=== PATIENT | male | born 1960 | race Caucasian/White ===

== ENCOUNTER 2019-11-28 08:41 | Inpatient (IN) | payer SELFPAY ==
[2019-11-28] VITALS (9 sets, daily range): BP systolic 160–182; BP diastolic 75–99; PULSE 55–82; RESP 16–20; TEMP 36.1–37.3; O2SAT 95–99; BMI 30.2
--- NOTE | ~2019-11-28 | CT_ITS ---
EXAMINATION: CT abdomen pelvis wo con EXAM DATE: 11/28/2019 10:41 INDICATION: Peripheral arterial disease. Skin cancer. Rectal mucous, difficulty urinating. TECHNIQUE: Spiral CT of the abdomen and pelvis was performed without contrast. Axial, coronal and s agittal images were reviewed. The dose-length product (DLP) for this examination was 533.32 mGy-cm. The exposure was tailored according to patient size (auto mA exposure control), and iterative recons truction (ASIR) was used as additional dose reduction technique. Comparison is made to prior examinat ion from 01/22/2007. FINDINGS: The liver, spleen, adrenal glands and pancreas are unremarkable. Gallbladder is unremarkab le. No biliary obstruction. There is no nephrolithiasis or hydronephrosis. There is mild bilateral hydroureteronephrosis. Mild left perinephric fat stranding. There is moderate prostatomegaly. There is a Martinez catheter in the bladder. The bladder is still severely dilated; is the Martinez catheter clam ped? There is no retroperitoneal or pelvic lymphadenopathy. There is mild scattered arteriosclerot ic disease. The appendix is normal. The stomach and small bowel are unremarkable. There is expected amount of c olonic stool. No free intraperitoneal gas. The heart is normal in size. There are no pericardial or pleural effusions. The lung bases are unremarkable. There are no osteoblastic or osteolytic les ions identified. IMPRESSION: 1. Moderate prostatomegaly. Martinez catheter in position (clamped?) with severely distended bladder an d mild bilateral hydroureteronephrosis. Mild left perinephric fat stranding. Correlate with urinalysi s. 2. Colonic tortuosity. Otherwise unremarkable bowel. Reviewed, dictated and finalized at location B. [employer] IMPRESSION: 1. Moderate prostatomegaly. Martinez catheter in position (clamped?) with severel y distended bladder and mild bilateral hydroureteronephrosis. Mild left perinep hric fat stranding. Correlate with urinalysis. 2. Colonic tortuosity. Otherwise unremarkable bowel.
--- NOTE | 2019-11-28 09:21 | ED.ABDPAIN ---
HPI - Abdominal Pain General Chief Complaint: Urogenital-Male <Shimon VillarrealFANNY Tanmay Last Filed: 11/28/19 11:24> Stated Complaint: Loss bladder/bowels <Shimon VillarrealFANNY Last Filed: 11/28/19 11:24> Time Seen by Provider: 11/28/19 08:56 <Shimon VillarrealFANNY Last Filed: 11/28/19 11:24> Source: patient <Shimon VillarrealFANNY Tanmay Last Filed: 11/28/19 11:24> Mode of arrival: ambulatory <Shimon VillarrealFANNY Last Filed: 11/28/19 11:24> Limitations: no limitations <Shimon Villarreal PA-C Tanmay Filed: 11/28/19 11:24> History of Present Illness HPI narrative: Patient is a 59-year-old male who presents to emergency department for evaluation of urinary urgency that is been present for the last 2 weeks went to an urgent care x2 was advised to follow-up with his primary care doctor was unable to get and the notes that he continues to have urinary urgency. Patient also notes over the last 4 days he has had some loose mucous stools. Patient denies any pain fever hematuria rectal bleeding or melena. Patient notes this morning he had emesis x1 and notes over the last couple of weeks is also had decreased appetite., Patient has not taken anything for his symptoms. Patient presents per private vehicle <Shimon Kojo FANNY Villarreal Tanmay Last Filed: 11/28/19 11:24> Related Data Allergies/Adverse Reactions: Allergies Allergy/AdvReac Type Severity Reaction Status Date / Time No Known Allergies Allergy Verified 11/28/19 10:10 <Shimon Villarreal PA-C Tanmay Last Filed: 11/28/19 11:24> Review of Systems Review of Systems: Narrative: CONSTITUTIONAL: Denies fever, chills, or sweats. EYES: Denies redness, or discharge. ENT: Denies rhinorrhea, congestion, sore throat, or otalgia. CARDIOVASCULAR: Denies chest pain, palpitations, or edema. RESPIRATORY: Denies cough or dyspnea. GASTROINTESTINAL: Denies abdominal pain, nausea, or diarrhea. GENITOURINARY: Denies hematuria. SKIN: Denies rash or itching. MUSCULOSKELETAL: Denies back pain, joint pain, or myalgia. NEUROLOGIC: Denies headache, or weakness. . <Shimon Villarreal PA-C - Last Filed: 11/28/19 11:24> FOR[facility]LY [facility], [facility]–1983 Surgical History Surgical History: Surgical History (Updated 11/28/19 @ 09:22 by Shimon Villarreal PA-C) Status post biopsy of skin <Shimon Villarreal PA-C - Last Filed: 11/28/19 11:24> Social History Social History: Social History Smoking status: Former smoker <Shimon Villarreal PA-C - Last Filed: 11/28/19 11:24> Exam Narrative: Exam Narrative: GENERAL: Well-appearing, well-nourished, and in no acute distress. HEAD: Normocephalic, atraumatic. EYES: PERRLA and EOMI. ENT: Nares clear, no rhinorrhea or epistaxis. Mucous membranes moist. Oropharynx without tonsillar hypertrophy exudate or other lesions. NECK: Supple. No adenopathy or masses. CHEST: Clear to auscultation. No respiratory distress. No wheezes rales or rhonchi HEART: Regular rate and rhythm. No murmur heard. Normal peripheral pulses. ABDOMEN: Soft, patient's bladder feels enlarged otherwise nontender, nondistended EXTREMITIES: Normal range of motion. No edema. SKIN: Warm, dry, no rash. NEURO: No focal deficits. Alert and oriented x3. Cranial nerves II through XII grossly intact PSYCH: Normal mood and affect. <Shimon Villarreal PA-C - Last Filed: 11/28/19 11:24> Course Course Emergency Course: Discussed case with urology who will consult on patient Discussed case with Dr. Rachel who will also accept the patient for admission <Shimon Villarreal PA-C - Last Filed: 11/28/19 11:24> HUMAN DEVELOPMENT PROFESSOR/PA Physician Supervision For this patient encounter, I reviewed the HUMAN DEVELOPMENT PROFESSOR or PA documentation, treatment plan, and medical decision making; and I had [id number] time with this patient. Patient seen at the bedside in conjunction with physician topographical field assistant. Patient presents with urinary symptoms that have b
[2019-11-28 09:30] LABS: Basophils Percent Auto 0.3 % (0.2-1.2); Eosinophils Absolute Auto 0.2 K/mm3 (0-0.3); Eosinophils Percent Auto 2.2 % (0-4.4); Hematocrit 39.4 % (42.0-52.0); Hemoglobin 12.5 g/dL (14.0-18.0); Immature Granulocyte Absolute 0.06 K/mm3 (0.00-0.031); Immature Granulocyte Percent A 0.7 % (0-0.5); Lymphocytes Absolute Auto 0.59 K/mm3 (0.9-3.2); Lymphocytes Percent Auto 6.9 % (18.3-44.2); Mean Corpuscular HGB Conc 31.7 g/dl (32-36); Mean Corpuscular Hemoglobin 28.7 pg (26-34); Mean Corpuscular Volume 90.6 fl (80-100); Mean Platelet Volume 9.6 fl (7.4-10.4); Monocytes Absolute Auto 0.7 K/mm3 (0.1-0.6); Monocytes Percent Auto 7.8 % (2.6-8.5); Neutrophils Percent Auto 82.1 % (45.5-73.1); Platelet Count Result 268 k/mm3 (150-375); Red Blood Count 4.35 M/mm3 (4.6-6.20); Red Cell Distribution Width 12.6 % (11.5-14.5); White Blood Count 8.6 K/mm3 (4.5-10.0)
[2019-11-28 09:55] LABS: Alanine Aminotransferase 12 U/L (4-50); Albumin Level 3.9 g/dL (3.5-5.1); Alkaline Phosphatase 59 U/L (38-126); Aspartate Amino Transferase 14 U/L (17-59); Bilirubin,Total 0.6 mg/dL (0.2-1.3); Blood Urea Nitrogen 93 mg/dL (9-20); Calcium 9.3 mg/dL (8.4-10.2); Carbon Dioxide 16 mmol/L (22-30); Chloride 107 mmol/L (98-107); Estimated CRCL calculation 6 ml/min; Estimated Glomerular Filt Rate 4; Glucose 87 mg/dL (75-110); Lipase 57 U/L (23-300); Potassium 6.2 mmol/L (3.4-5.0); Sodium 140 mmol/L (137-145)
--- NOTE | 2019-11-28 09:58 | ECG_ITS ---
Measurements Intervals [place] Rate: 62 P: 17 WA: 149 QRS: 17 QRSD: 108 T: 29 QT: 404 QTc: 413 Interpretive Statements SINUS RHYTHM MINIMAL Q WAVES- INFERIOR LEADS BORDERLINE ECG Electronically Signed On 11-28-2019 10:09:23 ACCESS SPEC by Delvis Samuel D.O.
[2019-11-28 10:10] LABS: Add Urine Microscopic? YES; Appearance Urine Clear (Clear); Bacteria Urine Trace /hpf; Bilirubin Urine Negative (Negative); Blood Urine 1+ (Negative); Color Urine Yellow (Yellow); Glucose Urine UA Negative (Negative); Ketones Urine Negative (Negative); Leukocyte Esterase Ur Negative LEU/UL (Negative); Mucus Urine Rare /lpf; Nitrate Urine Negative (Negative); Protein Urine Negative (Negative); Specific Grav Ur 1.013 (1.001-1.035); Squamous Epithelial Cell Urine Rare /hpf (Few); Urobilinogen Urine Negative mg/dL (<2.0)
[2019-11-28] MEDS: Please add drug allergy info to patient profile. 1 EACH XX (10:11)
[2019-11-28] MEDS: CALCIUM GLUCONATE 1,000 MG/10 ML VIAL 2000 MG IV PUSH (10:11)
[2019-11-28] MEDS: DEXTROSE 50% 25 GM/50 ML SYRINGE IV PUSH (10:11)
[2019-11-28] MEDS: SODIUM BICARBONATE 8.4% 50 MEQ/50 ML VIAL IV PUSH (10:11)
[2019-11-28] MEDS: INSULIN HUMAN REGULAR (*BKC) 100 UNITS/ML 10 UNITS IV PUSH (10:18)
[2019-11-28] MEDS: LACTATED RINGERS 1,000 ML 75 ML IV CONT (12:53)
--- NOTE | 2019-11-28 12:59 | WPDURCON ---
Assessment and Plan Assessment and plan (1) Acute renal failure: Qualifiers: Acute renal failure type: unspecified Qualified Code(s): N17.9 - Acute kidney failure, unspecified Code(s): N17.9 - Acute kidney failure, unspecified Status: Acute Assessment and Plan: Due to obstructive uropathy due to his enlarged prostate. Creatinine should rapidly improved with Martinez catheter drainage. He is also experiencing postobstructive diuresis and electrolytes will need to be monitored closely. (2) Bladder outlet obstruction: Code(s): N32.0 - Bladder-neck obstruction Status: Acute Assessment and Plan: likely secondary to BPH. Start Flomax and finasteride. Will need to go home with Martinez catheter and outpatient urologic follow-up in 2 weeks. Urology Consult Note HPI Date Seen: 11/28/19 Requesting Physician: Jose A Rachel MD Primary Care Provider: Tapan Arias MD Consult Narrative Narrative: Markie Murdock is a 59 year old male./ Who comes to the hospital for a 1 week history of difficulty voiding. He endorses a slow and recently stream. He states he has not had much voiding issues before the last week to a month but now has inability to empty his bladder. A CT scan done in the emergency room shows bilateral hydronephrosis and a distended bladder. A Martinez catheter has been in place. He has drained 3 L of urine since the Martinez has been placed. He denies any urinary tract infection symptoms or any prior complaints Review of Systems Review of Systems: All systems reviewed & are unremarkable except as noted in HPI and below Genitourinary: Genitourinary: Reports as per [facility] Surgical History Surgical History Status post biopsy of skin Social History Social History Smoking status: Former smoker Meds Home Medications and Allergies Allergies Allergy/AdvReac Type Severity Reaction Status Date / Time No Known Allergies Allergy Verified 11/28/19 10:10 Vital Signs Vital Signs - 24 hr 11/28/19 08:50 11/28/19 11:13 11/28/19 12:04 Temperature 97.7 F Pulse Rate 82 58 L 62 Respiratory Rate 17 20 16 Blood Pressure 182/81 H 178/99 H 168/98 H Pulse Oximetry 97 98 99 Exam Const: General: no acute distress HENMT: Mouth: Yes dry mucous membranes Eyes: EOM: EOMs intact bilaterally Neck: Neck: supple Resp: Effort & Inspection: normal respiratory effort Cardio: Rate: regular rate GI: Inspection: non-distended : Male General Exam: Yes normal external exam Urinary Catheter: Urinary Catheter: patent and draining and urine clear Skin: General skin exam: normal color Neuro: Cognition (Neuro): normal cognition Sensory Exam: normal sensation Extrem: General: normal to inspection Psych: Speech and movement: Normal speech and movement present Affect: normal affect Results Labs CBC & Chem 7: 11/28/19 09:17 11/28/19 09:17 Labs: Short CBC 11/28/19 Range/Units 09:17 WBC 8.6 (4.5-10.0) K/mm3 Hgb 12.5 L (14.0-18.0) g/dL Hct 39.4 L (42.0-52.0) % Plt Count 268 (150-375) k/mm3 BMP 11/28/19 09:17 Sodium 140 Potassium 6.2 H* Chloride 107 Carbon Dioxide 16 L BUN 93 H Creatinine 12.60 H Glucose 87 Calcium 9.3 Liver Function 11/28/19 Range/Units 09:17 Total Bilirubin 0.6 (0.2-1.3) mg/dL AST 14 L (17-59) U/L ALT 12 (4-50) U/L Alkaline Phosphatase 59 (38-126) U/L Albumin 3.9 (3.5-5.1) g/dL Urine 11/28/19 Range/Units 09:59 Urine Color Yellow (Yellow) Urine Appearance Clear (Clear) Urine pH 5.0 (5.0-9.0) Ur Specific [place] 1.013 (1.001-1.035) Urine Protein Negative (Negative) mg/dL Urine Glucose (UA) Negative (Negative) mg/dL
[2019-11-28 14:33] LABS: Blood Urea Nitrogen 74 mg/dL (9-20); Calcium 10.2 mg/dL (8.4-10.2); Carbon Dioxide 25 mmol/L (22-30); Chloride 105 mmol/L (98-107); Estimated CRCL calculation 10 ml/min; Estimated Glomerular Filt Rate 7; Glucose 140 mg/dL (75-110); Magnesium 2.6 mg/dL (1.6-2.3); Phosphorus 5.2 mg/dL (2.5-4.5); Potassium 5.6 mmol/L (3.4-5.0); Sodium 142 mmol/L (137-145)
--- NOTE | 2019-11-28 18:11 | PM.CNNEP ---
Assessment and Plan Assessment and plan (1) Acute renal failure: Qualifiers: Acute renal failure type: unspecified Qualified Code(s): N17.9 - Acute kidney failure, unspecified Code(s): N17.9 - Acute kidney failure, unspecified Status: Acute (2) Acute hyperkalemia: Code(s): E87.5 - Hyperkalemia Status: Acute (3) Bladder outlet obstruction: Code(s): N32.0 - Bladder-neck obstruction Status: Acute Assessment and Plan: . Additional Plan Markie has acute renal failure with the likely/presumable etiology being obstructive uropathy. Urology has already been consulted with recommendations noted. Presumably, as his obstruction has been relieved with the placement of the Mcclelland catheter, his kidney function should continue to improve. Unfortunately, it is not entirely clear how long this obstruction has been present but it is very possible he may have some residual kidney disease /damage from the chronicity of the obstruction and may have a new baseline creatinine afterwards. For now, I would continue close observation of his urine output and frequent blood test to ensure his electrolytes stabilize if not continue to improve...he may run into some issues and problems with hypokalemia given the postobstructive diuresis that he is no doubt having at this time. I had a fairly long lengthy discussion both the patient as well as his extended family present in the room at the time of my visit (greater than 20 minutes) regarding the nature of his acute kidney injury, the interventions that are being done at this point in time to maintain stability in his overall kidney function, relaying my concern that he may have new baseline creatinine once his obstruction is fully resolved. I will continue to follow the patient with you while he remains hospitalized and make further recommendations during his hospital course. Thank you for allowing me to participate in care this patient. History of Present Illness Reason for Consult Consult date: 11/28/19 Reason for consult: acute renal failure and hyperkalemia Chief Complaint Chief complaint: Urinary symptoms. History of Present Illness Narrative: The patient is a 59-year-old male with a past medical history as outlined below who presented to [facility] emergency department for evaluation of difficulty urinating. The patient states that his symptoms have been present for at least the last 2 weeks (if not longer). He apparently went to urgent care on two separate occasions for this issue -- each time he was told to follow-up with his PCP which apparently he did not do. He continued to have urinary retention until it got to the point where he was unable to urinate at all. Along with the inability to urinate, he has had a few episodes of emesis along with a decrease in appetite. Workup and evaluation in the emergency room demonstrated the patient to be hemodynamically stable and routine blood test demonstrated a significant decline in his kidney function in association with severe hyperkalemia - his BUN was 93, creatinine of 12.12, and a potassium of 6.2. He received medical management for his hyperkalemia and subsequent imaging demonstrated moderate prostatomegaly, mcclelland catheter in position with severely distended bladder and mild bilateral hydroureteronephrosis. Urology was consulted and he was subsequently to the hospital for further evaluation and therapy. Renal consultation was requested due to his acute kidney injury/acute renal failure. As far as I can tell, the patient has normal kidney function at baseline although the last labs I have available are from 2006 when his creatinine was 1.2 mg/dL. Given all the testing that has been done to date, his acute renal dysfunction is likely secondary to obstructive uropathy. His repeat labs have already showed improvement in both his BUN and creatinine and he continues to urinate /drain significant
--- NOTE | 2019-11-28 20:30 | PM.IMHP ---
H&P: HPI History of Present Illness Chief complaint: Urinary symptoms. Narrative: Markie Murdock is a 59 year old male, previously healthy, who presented to the emergency department earlier this morning for evaluation of urinary symptoms. For the last couple of weeks he has had urinary urgency and notes ?that I am leaking urine all night.? Apparently he was seen at urgent care, was diagnosed with urinary tract infection, was prescribed antibiotics. Unfortunately, the symptoms have persisted. Additionally he has had a low back ache for approximately 1 weeks time, which he attributed to a muscle strain from working. He has been using a heating pad which seems to have helped. He was found to have and extremely distended bladder on arrival today. A Martinez catheter has been placed and he has had 5400 milliliters output since that time. With further questioning, he mentions that for the past 4 years he urinates frequently, and small amounts, and does not think he completely empties his bladder. Additionally, he mentions loose mucousy stools the past several days. He has not noticed any abdominal distension or weight gain. He has not had fever, chills, or sweats. No chest pain or shortness of breath. He denies lightheadedness and dizziness. No headache or confusion. He had slight nausea and vomiting this morning, but this is not been an ongoing issue. Review of Systems Review of Systems: Narrative: Twelve systems were reviewed with pertinent positives and negatives as per HPI. No fever, chills, or sweats. No recent cold or flu symptoms. No chest pain or shortness of breath. He denies melena and hematochezia. Weight has remained stable. except as documented, all other systems were reviewed and are negative. [facility] Past Medical History Medical History (Updated 11/28/19 @ 23:36 by Caitie Villegas PA-C) No significant medical problems Surgical History Surgical History (Updated 11/28/19 @ 23:30 by Caitie Villegas PA-C) Status post arthroscopy of left knee Status post biopsy of skin Family History Family History Mother Hypertension Diabetes mellitus Sibling Breast cancer Father Heart failure Social History Social History (Updated 11/28/19 @ 23:31 by Caitie Villegas PA-C) Social History: Markie lives in [place]. His 96-year-old mother lives at home with him. 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 He will drink a 12 pack of beer every other weekend. No drug use. Smoking packs per day: 0.5 Smoking cigarettes per day: 10.0 Years smoked: 45 Smoking pack-years: 22.50 Smoking status: Current some day smoker Tobacco type: cigarettes Additional smoking assessment comments: patient has not smoked for 4 days Alcohol intake: current Drinks per week: 12 Substance use: never Spiritual care concerns: No Agree to blood products: Yes Meds Home Medications and Allergies Home Medications Medication Instructions Recorded Confirmed Type No Home Medications 11/28/19 11/28/19 History Allergies Allergy/AdvReac Type Severity Reaction Status Date / Time No Known Allergies Allergy Verified 11/28/19 10:10 Vital Signs Vital Signs - 24 hr 11/28/19 08:50 11/28/19 11:13 11/28/19 12:04 Temperature 97.7 F Pulse Rate 82 58 L 62 Respiratory Rate 17 20 16 Blood Pressure 182/81 H 178/99 H 168/98 H Pulse Oximetry 97 98 99 11/28/19 12:59 11/28/19 14:11 11/28/19 16:00 Temperature 97.0 F L 98.0 F Pulse Rate 55 L 62 65 Respiratory Rate 18 20 Blood Pressure 164/80 H 167/78 H Pulse Oximetry 98 98 11/28/19 16:38 11/28/19 20:00 Temperature 99.1 F 98.9 F Pulse Rate 65 71 Respiratory Rate 18 16 Blood Pressure 163/75 H 160/85 H Pulse Oximetry 97 96 Exam Narrative: Exam Narrative: General: A well-developed, nontoxic-
[2019-11-28] MEDS: FAMOTIDINE 20 MG/2 ML VIAL IV PUSH (21:20)
[2019-11-29] VITALS (10 sets, daily range): BP systolic 135–160; BP diastolic 67–88; PULSE 55–77; RESP 14–18; TEMP 36.4–37.1; O2SAT 94–98
[2019-11-29] MEDS: LACTATED RINGERS 1,000 ML 75 ML IV CONT ×2 (02:04→16:02)
[2019-11-29 06:09] LABS: Basophils Percent Auto 0.3 % (0.2-1.2); Eosinophils Absolute Auto 0.3 K/mm3 (0-0.3); Eosinophils Percent Auto 3.5 % (0-4.4); Hematocrit 42.1 % (42.0-52.0); Hemoglobin 13.4 g/dL (14.0-18.0); Immature Granulocyte Absolute 0.05 K/mm3 (0.00-0.031); Immature Granulocyte Percent A 0.7 % (0-0.5); Lymphocytes Absolute Auto 0.98 K/mm3 (0.9-3.2); Lymphocytes Percent Auto 13.5 % (18.3-44.2); Mean Corpuscular HGB Conc 31.8 g/dl (32-36); Mean Corpuscular Hemoglobin 28.4 pg (26-34); Mean Corpuscular Volume 89.2 fl (80-100); Mean Platelet Volume 9.5 fl (7.4-10.4); Monocytes Absolute Auto 0.7 K/mm3 (0.1-0.6); Monocytes Percent Auto 9.1 % (2.6-8.5); Neutrophils Absolute Auto 5.3 K/mm3 (1.3-6.7); Neutrophils Percent Auto 72.9 % (45.5-73.1); Platelet Count Result 310 k/mm3 (150-375); Red Blood Count 4.72 M/mm3 (4.6-6.20); Red Cell Distribution Width 12.8 % (11.5-14.5); White Blood Count 7.2 K/mm3 (4.5-10.0)
[2019-11-29 06:20] LABS: Blood Urea Nitrogen 33 mg/dL (9-20); Calcium 9.8 mg/dL (8.4-10.2); Carbon Dioxide 26 mmol/L (22-30); Chloride 104 mmol/L (98-107); Estimated CRCL calculation 37 ml/min; Estimated Glomerular Filt Rate 34; Glucose 93 mg/dL (75-110); Potassium 5.4 mmol/L (3.4-5.0); Sodium 139 mmol/L (137-145)
[2019-11-29] MEDS: FAMOTIDINE 20 MG/2 ML VIAL IV PUSH ×2 (08:20→20:52)
--- NOTE | 2019-11-29 10:42 | PM.PNNEP ---
Progress Note: A&P Assessment and Plan (1) Acute renal failure: Qualifiers: Acute renal failure type: unspecified Qualified Code(s): N17.9 - Acute kidney failure, unspecified Code(s): N17.9 - Acute kidney failure, unspecified Status: Acute Assessment and Plan: due to obstructive uropathy - relieved by mcclelland catheter placement creatinine improving since mcclelland catheter placement given the severity of insult, he may have a new baseline creatinine contine supportive therapy (2) Acute hyperkalemia: Code(s): E87.5 - Hyperkalemia Status: Acute Assessment and Plan: resolving due to #1 follow repeat levels (3) Bladder outlet obstruction: Code(s): N32.0 - Bladder-neck obstruction Status: Acute Assessment and Plan: as noted by imaging studies Urology following Will continue to follow. Subjective Date/time seen: 11/29/19 10:42 Appears to be doing reasonably well; no acute issues or problems voiced at this time; no apparent distress voiced at the time of my visit; no events overnight or this AM. Exam Narrative: Exam Narrative: General: WD/WN male in NAD Heart: normal S1 and S2; no rub Lungs: clear to auscultation Abdomen: soft, nontender, nondistended, positive bowel sounds Extremities: no cyanosis or clubbing; no edema Skin: warm and dry Objective Data Vital Signs Vital Signs: Vital Signs Temp Pulse Resp BP Pulse Ox 11/29/19 08:36 36.4 C 63 18 139/67 97 11/29/19 04:00 36.6 C 63 14 160/88 H 95 11/29/19 00:00 36.4 C 61 16 157/71 H 95 11/28/19 21:16 60 16 95 11/28/19 20:00 37.2 C 69 16 160/85 H 96 11/28/19 16:38 37.3 C 65 18 163/75 H 97 11/28/19 16:00 65 11/28/19 14:11 36.7 C 62 20 167/78 H 98 11/28/19 12:59 36.1 C L 55 L 18 164/80 H 98 11/28/19 12:04 62 16 168/98 H 99 11/28/19 11:13 58 L 20 178/99 H 98 Intake/Output Intake/Output: Intake & Output 11/26/19 11/27/19 11/28/19 11/29/19 23:59 23:59 23:59 23:59 Intake Total 440 1989 Output Total 5400 3000 Balance -4960 -1010 Meds/Results Medications: Active Medications Generic Name Dose Route Start Last Admin Trade Name Freq PRN Reason Stop Dose Admin Famotidine 20 mg 11/28/19 21:00 11/29/19 08:20 Pepcid Iv IV PUSH 20 mg Q12HR JOSE RAFAEL Administration Acetaminophen 1,000 mg in 100 mls @ 400 mls/hr 11/28/19 11:25 Ofirmev 1,000 Mg Ivpb IVPB 11/29/19 11:26 Q6H PRN Mild Pain (1-3) or Fever Lactated Ringer's 1,000 mls @ 75 mls/hr 11/28/19 11:25 11/29/19 02:04 Lr - Lactated Ringers Iv IV CONT 75 mls/hr .[id number] JOSE RAFAEL Administration Ondansetron HCl 4 mg 11/28/19 11:25 Zofran Inj IV PUSH Q4H PRN Nausea Radiology Results: ITS Impressions Abdomen/Pelvis CT 11/28/19 10:45 IMPRESSION: 1. Moderate prostatomegaly. Mcclelland catheter in position (clamped?) with severely distended bladder and mild bilateral hydroureteronephrosis. Mild left perinephric fat stranding. Correlate with urinalysis. 2. Colonic tortuosity. Otherwise unremarkable bowel. Labs Labs: Laboratory Tests 11/29/19 05:13 11/29/19 05:13
--- NOTE | 2019-11-29 10:50 | PM.IMPN ---
Progress Note: A&P Assessment and Plan (1) Acute renal failure: Qualifiers: Acute renal failure type: unspecified Qualified Code(s): N17.9 - Acute kidney failure, unspecified Code(s): N17.9 - Acute kidney failure, unspecified Status: Acute Assessment and Plan: This has significantly improved since admission with Cr 2.00 today. Nephrology and urology consulted and appreciate input. Secondary to obstructive uropathy. Mcclelland catheter has been placed and creatinine has already improved. He will likely be discharged with Mcclelland per Urology recommendations Continue to monitor renal function closely. (2) Metabolic acidosis: Code(s): E87.2 - Acidosis Status: Acute Assessment and Plan: This has improved since admission. Likely secondary to acute kidney injury. Will continue to monitor. (3) Acute hyperkalemia: Code(s): E87.5 - Hyperkalemia Status: Acute Assessment and Plan: This has also improved since admission with K today at 5.4 down from 5.6 since yesterday. Secondary to renal failure and metabolic acidosis Should improve with improving renal function. Continue IV fluids as well. Continue to monitor on telemetry. (4) Bladder outlet obstruction: Code(s): N32.0 - Bladder-neck obstruction Status: Acute Assessment and Plan: Presumably secondary to prostatomegaly. Urology input appreciated. They recommend discharge on Mcclelland catheter. Patient concerned with work with Mcclelland Catheter. Finasteride and Flomax have been started as well. (5) Elevated blood pressure reading: Code(s): R03.0 - Elevated blood-pressure reading, without diagnosis of hypertension Status: Acute Assessment and Plan: BP improved this morning to 139/67. Possibly underlying HTN. Discussed with patient on whether he would start a new medication here in the hospital vs monitoring at home and following up with his primary once established. Will monitor BP for now. Could be due to anxiety from hospitalization/discomfort from bladder distension and Mcclelland catheter. Monitor overnight Possibly initiate antihypertensives if continued to be elevated. Consider amlodipine. Subjective Date/time seen: 11/29/19 10:50 Interval history: Patient is a 59 yo M, previously healthy, who is here for ARF secondary to bladder outlet obstruction (presumed 2/2 prostatomegaly), metabolic acidosis with acute hyperkalemia. Patient is doing well today. He states he is a lot less distended. 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 He still notes blood in his Mcclelland particularly when he walked this morning. No other complaints. He denies f/c/ns, headaches, dizziness, lightheadedness, changes in vision/hearing, cp/palpitations, sob/cough, dysphagia, n/v/d/c, abd pain, melena, brbpr, pain from mcclelland, calf pain/swelling, s/sx of stroke. Review of Systems Review of Systems: All systems reviewed & are unremarkable except as noted in HPI and below Exam Narrative: Exam Narrative: Patient lying supine in bed at time of visit, head slightly raised. No acute distress. Const: General: healthy appearing, comfortable, no acute distress and well developed Nutritional Appearance: well nourished Orientation/consciousness: patient oriented x3 HENMT: Head: normocephalic and atraumatic General nose exam: Normal external nose present and Normal nares present Face and sinus: normal facial exam and face symmetric Mouth: Yes lip normal, Yes tongue normal and Yes moist mucous membranes Teeth and gingiva: fair dentition Throat: posterior oropharynx normal and uvula midline Eyes: General: appearance normal, both eyes and all related structures Sclera: sclerae normal
--- NOTE | 2019-11-29 12:52 | WPDUROPN2 ---
Progress Note: A&P Assessment and Plan (1) Bladder outlet obstruction: Code(s): N32.0 - Bladder-neck obstruction Status: Acute Assessment and Plan: Patient has indwelling Martinez and Flomax and finasteride was started. Will need to leave Martinez in for minimum 7-10 days and then proceed with voiding trial. He most likely will require urodynamics and cystoscopy as an outpatient. Can be discharged from urology standpoint with Martinez when medically stable (2) Acute renal failure: Qualifiers: Acute renal failure type: unspecified Qualified Code(s): N17.9 - Acute kidney failure, unspecified Code(s): N17.9 - Acute kidney failure, unspecified Status: Acute Assessment and Plan: Improving with Martinez catheter placement. Continue to monitor creatinine levels. Subjective Subjective Date/Time Seen: 11/29/19 12:52 Principal diagnosis: Urinary retention with acute renal failure Interval history: Patient had a Martinez catheter placed yesterday. His creatinine has improved tremendously and is down to a level of 2 at this time. He is feeling much better. Exam Const: General: no acute distress Resp: Effort & Inspection: normal respiratory effort Objective Data Vital Signs Vital Signs: Vital Signs - 24 hr 11/28/19 12:59 11/28/19 14:11 11/28/19 16:00 Temperature 36.1 C L 36.7 C Pulse Rate 55 L 62 65 Respiratory Rate 18 20 Blood Pressure 164/80 H 167/78 H Pulse Oximetry 98 98 11/28/19 16:38 11/28/19 20:00 11/28/19 21:16 Temperature 37.3 C 37.2 C Pulse Rate 65 69 60 Respiratory Rate 18 16 16 Blood Pressure 163/75 H 160/85 H Pulse Oximetry 97 96 95 11/29/19 00:00 11/29/19 04:00 11/29/19 08:36 Temperature 36.4 C 36.6 C 36.4 C Pulse Rate 61 63 63 Respiratory Rate 16 14 18 Blood Pressure 157/71 H 160/88 H 139/67 Pulse Oximetry 95 95 97 11/29/19 08:44 11/29/19 12:00 Temperature 36.6 C Pulse Rate 69 62 Respiratory Rate 18 Blood Pressure 149/79 H Pulse Oximetry 94 Intake/Output Intake/Output: Intake & Output 01/25/11/27/19 11/28/19 11/29/19 23:59 23:59 23:59 23:59 Intake Total 440 1989 Output Total 5400 3000 Balance -4960 -1010 Meds/Results Medications: Active Medications Generic Name Dose Route Start Last Admin Trade Name Freq PRN Reason Stop Dose Admin Famotidine 20 mg 11/28/19 21:00 11/29/19 08:20 Pepcid Iv IV PUSH 20 mg Q12HR JOSE RAFAEL Administration Lactated Ringer's 1,000 mls @ 75 mls/hr 11/28/19 11:25 11/29/19 02:04 Lr - Lactated Ringers Iv IV CONT 75 mls/hr .[id number] JOSE RAFAEL Administration Ondansetron HCl 4 mg 11/28/19 11:25 Zofran Inj IV PUSH Q4H PRN Nausea Radiology Results: ITS Impressions Abdomen/Pelvis CT 11/28/19 10:45 IMPRESSION: 1. Moderate prostatomegaly. Martinez catheter in position (clamped?) with severely distended bladder and mild bilateral hydroureteronephrosis. Mild left perinephric fat stranding. Correlate with urinalysis. 2. Colonic tortuosity. Otherwise unremarkable bowel. Labs Labs: Laboratory Results - last 24 hr 11/28/19 11/29/19 11/29/19 13:55 05:13 05:13 WBC 7.2 RBC 4.72 Hgb 13.4 L Hct 42.1 MCV 89.2 MCH 28.4 MCHC 31.8 L RDW 12.8 Plt Count 310 MPV 9.5 Immature Gran % (Auto) 0.7 H Neut % (Auto) 72.9 Lymph % (Auto) 13.5 L [place] % (Auto) 9.1 H Eos % (Auto) 3.5 Baso % (Auto) 0.3 Lymph # (Auto) 0.98 [place] # (Auto) 0.7 H Eos # (Auto) 0.3 Baso # (Auto) 0.0 Abs Immat Gran (auto) 0.05 H Absolute Neuts (auto) 5.3 Absolute Nucleated RBC 0.0 Nucleated RBC % 0.0 Sodium 142 139 Potassium 5.6 H 5.4 H Chloride 105 104 Carbon Dioxide 25 26 BUN 74 H D 33 H D Creatinine 7.70 H 2.00 H D Estim Creat Clear Calc 10 37 Estimated GFR 7 L 34 L Glucose 140 H 93 Calcium 10.2 9.8 Phosphorus 5.2 H Magnesium 2.6 H Quality VTE Prophylaxis VTE pro
[2019-11-30] VITALS: PULSE 53
[2019-11-30 04:00] VITALS: PULSE 62
[2019-11-30 05:06] VITALS: BP 150/88; PULSE 57; RESP 18; TEMP 36.5; O2SAT 96
[2019-11-30] MEDS: LACTATED RINGERS 1,000 ML 75 ML IV CONT (05:06)
[2019-11-30 05:40] LABS: Hematocrit 43.5 % (42.0-52.0); Hemoglobin 14.2 g/dL (14.0-18.0); Mean Corpuscular HGB Conc 32.6 g/dl (32-36); Mean Corpuscular Hemoglobin 29.2 pg (26-34); Mean Corpuscular Volume 89.5 fl (80-100); Mean Platelet Volume 9.2 fl (7.4-10.4); Platelet Count Result 312 k/mm3 (150-375); Red Blood Count 4.86 M/mm3 (4.6-6.20); Red Cell Distribution Width 12.6 % (11.5-14.5); White Blood Count 6.8 K/mm3 (4.5-10.0)
[2019-11-30 06:04] LABS: Albumin Level 3.9 g/dL (3.5-5.1); Blood Urea Nitrogen 22 mg/dL (9-20); Calcium 9.7 mg/dL (8.4-10.2); Carbon Dioxide 27 mmol/L (22-30); Chloride 100 mmol/L (98-107); Estimated CRCL calculation 59 ml/min; Estimated Glomerular Filt Rate > 60; Glucose 99 mg/dL (75-110); Magnesium 1.7 mg/dL (1.6-2.3); Phosphorus 4.3 mg/dL (2.5-4.5); Potassium 4.7 mmol/L (3.4-5.0); Sodium 136 mmol/L (137-145)
[2019-11-30 08:00] VITALS: BP 156/82; PULSE 70; PULSE 81; RESP 18; TEMP 36.7; O2SAT 95
[2019-11-30] MEDS: AMLODIPINE BESYLATE 2.5 MG TABLET PO (09:03)
--- NOTE | 2019-11-30 10:19 | WPDUROPN2 ---
Progress Note: A&P Assessment and Plan (1) Bladder outlet obstruction: Code(s): N32.0 - Bladder-neck obstruction Status: Acute Assessment and Plan: Patient has indwelling Mcclelland and Flomax and finasteride was started. Will need to leave Mcclelland in for minimum 7-10 days and then proceed with voiding trial. He most likely will require urodynamics and cystoscopy as an outpatient. Can be discharged from urology standpoint with Mcclelland when medically stable. No further evaluation. (2) Acute renal failure: Qualifiers: Acute renal failure type: unspecified Qualified Code(s): N17.9 - Acute kidney failure, unspecified Code(s): N17.9 - Acute kidney failure, unspecified Status: Acute Assessment and Plan: Continue to monitor creatinine. Subjective Subjective Date/Time Seen: 11/30/19 10:19 Principal diagnosis: Urinary retention with acute renal failure Interval history: Patient had a Mcclelland catheter placed yesterday. His creatinine has improved tremendously. He is feeling much better. Review of Systems Respiratory: Respiratory: Reports no additional respiratory complaints Gastrointestinal: Gastrointestinal: Denies abdominal pain Genitourinary: Genitourinary: Reports hematuria and Reports other (mcclelland catheter in place) Exam Resp: Effort & Inspection: normal respiratory effort Cardio: Rate: regular rate GI: GI Palp: No Tenderness to palpation present (GI) Urinary Catheter: Urinary Catheter: patent and draining, urine clear and urine pink Extrem: General: no edema Objective Data Vital Signs Vital Signs: Vital Signs - 24 hr 11/29/19 12:00 11/29/19 16:00 11/29/19 16:54 Temperature 97.8 F 98.8 F Pulse Rate 62 63 66 Respiratory Rate 18 18 Blood Pressure 149/79 H 135/83 Pulse Oximetry 94 95 11/29/19 20:00 11/29/19 20:42 11/29/19 22:57 Temperature 97.8 F Pulse Rate 61 66 Respiratory Rate 16 18 Blood Pressure 155/73 H Pulse Oximetry 98 95 11/30/19 00:00 11/30/19 04:00 11/30/19 05:06 Temperature 97.7 F Pulse Rate 53 L 62 57 L Respiratory Rate 18 Blood Pressure 150/88 H Pulse Oximetry 96 11/30/19 08:00 Temperature 98.1 F Pulse Rate 81 Respiratory Rate 18 Blood Pressure 156/82 H Pulse Oximetry 95 Intake/Output Intake/Output: Intake & Output 11/27/19 11/28/19 11/29/19 11/30/19 23:59 23:59 23:59 23:59 Intake Total 440 3710 1440 Output Total 5400 4000 1250 Balance -4960 -290 190 Meds/Results Medications: Active Medications Generic Name Dose Route Start Last Admin Trade Name Freq PRN Reason Stop Dose Admin Amlodipine Besylate 2.5 mg 11/30/19 09:00 11/30/19 09:03 Norvasc PO 2.5 mg QAM JOSE RAFAEL Administration Famotidine 20 mg 11/30/19 09:00 Pepcid PO Q12HR JOSE RAFAEL Lactated Ringer's 1,000 mls @ 75 mls/hr 11/28/19 11:25 11/30/19 09:05 Lr - Lactated Ringers Iv IV CONT 0 mls/hr .[id number] JOSE RAFAEL Infusion Ondansetron HCl 4 mg 11/28/19 11:25 Zofran Inj IV PUSH Q4H PRN Nausea Radiology Results: ITS Impressions Abdomen/Pelvis CT 11/28/19 10:45 IMPRESSION: 1. Moderate prostatomegaly. Mcclelland catheter in position (clamped?) with severely distended bladder and mild bilateral hydroureteronephrosis. Mild left perinephric fat stranding. Correlate with urinalysis. 2. Colonic tortuosity. Otherwise unremarkable bowel. Labs Labs: Laboratory Results - last 24 hr 11/30/19 11/30/19 05:11 05:11 WBC 6.8 RBC 4.86 Hgb 14.2 Hct 43.5 MCV 89.5 MCH 29.2 MCHC 32.6 RDW 12.6 Plt Count 312 MPV 9.2 Sodium 136 L Potassium 4.7 Chloride 100 Carbon Dioxide 27 BUN 22 H D Creatinine 1.10 Estim Creat Clear Calc 59 Estimated GFR > 60 Glucose 99 Calcium 9.7 Phosphorus 4.3 Magnesium 1.7 Albumin 3.9 Quality VTE Prophylaxis VTE prophylaxis: mechanical ordered
[2019-11-30 10:54] VITALS: BP 158/83
[2019-11-30] MEDS: FAMOTIDINE 20 MG TABLET PO (11:23)
--- NOTE | 2019-11-30 11:39 | PM.DS ---
DS: Diagnosis Admitting Diagnosis Admitting Diagnosis: Acute kidney failure, unspecified Discharge Diagnosis (1) Acute renal failure: Qualifiers: Acute renal failure type: unspecified Qualified Code(s): N17.9 - Acute kidney failure, unspecified Code(s): N17.9 - Acute kidney failure, unspecified Status: Acute Assessment and Plan: This has significantly improved since admission with Cr 1.10 today. Nephrology and urology consulted and appreciate input. Secondary to obstructive uropathy. Martinez catheter has been placed and creatinine has improved. He will be discharged with Martinez per Urology recommendations Follow up with Urology in 7-10 days. (2) Metabolic acidosis: Code(s): E87.2 - Acidosis Status: Acute Assessment and Plan: This has improved since admission. Likely secondary to acute kidney injury. (3) Acute hyperkalemia: Code(s): E87.5 - Hyperkalemia Status: Acute Assessment and Plan: This has also improved since admission with K today at 4.7 down from 5.4 since yesterday. Secondary to renal failure and metabolic acidosis No cp/palpitations (4) Bladder outlet obstruction: Code(s): N32.0 - Bladder-neck obstruction Status: Acute Assessment and Plan: Presumably secondary to prostatomegaly. Urology input appreciated. Urology recommends discharge on Martinez catheter. Finasteride and Flomax have been started as well. (5) Elevated blood pressure reading: Code(s): R03.0 - Elevated blood-pressure reading, without diagnosis of hypertension Status: Acute Assessment and Plan: BP this morning 130s-150s sys. Possibly underlying HTN. Started amlodipine 2.5 mg daily today. Could be due to anxiety from hospitalization/discomfort from bladder distension and Martinez catheter, as well. Amlodipine 2.5 mg daily on discharge Instructed patient to purchase BP cuff and monitor daily. Patient to f/u with PCP DS: Summary Hospital Course Reason for hospitalization: Acute renal failure likely secondary to bladder outlet obstruction presumably from prostatomegaly Hospital Course: Patient is a 59 yo M, previously healthy, who presented to the ED on 11/28 with complaints of urinary symptoms. For the previous couple of weeks prior to presentation, he had urinary urgency and incontinency. He originally presented to an urgent care and was prescribed antibiotics, although the symptoms persisted. He had associated low back pain as well. While in the ED, a Martinze was placed and 5400 mL output was noted that day alone since the Martinez insertion. Please see H&P for further details. Presenting VS: BP 182/81, HR 82, RR 17, temp 97.7, sat 97% RA Presenting Pertinent labs: H&H 12.5/39.4 (11/30 14.2/43.5), K 6.2, BUN 93 (11/30 22), Cr 12.60 (11/30 1.10), CrCl 6 (11/30 59), eGFR 4 (11/30 >60). UA showed 4-6 WBC, 11-20 RBC, 1+ Blood. CBC, CMP, lipase, UA otherwise unremarkable Micro: none Imagin/27 CT abd/pelvis IMPRESSION: 1. Moderate prostatomegaly. Martinez catheter in position (clamped?) with severely distended bladder and mild bilateral hydroureteronephrosis. Mild left perinephric fat stranding. Correlate with urinalysis. 2. Colonic tortuosity. Otherwise unremarkable bowel. ECG: Interpretive Statements SINUS RHYTHM MINIMAL Q WAVES- INFERIOR LEADS BORDERLINE ECG Patient was admitted to the hospitalist service for further evaluation; Urology and Nephrology were consulted from the ED for further evaluation/management of acute kidney injury and bladder outlet obstruction. Martinez catheter was placed while in the ED. Patient was started on Flomax and finasteride. During his hospital course, his creatinine improved to 1.10. His blood pressure remained elevated during s
[2019-11-30 12:00] VITALS: PULSE 105
== END 2019-11-30 14:07 | disposition home or self-care (01) | DRG 469 ==
LOC: ANHED 11:25 → ANH3MED 15:16
PROVIDERS: Emergency Medicine Emergency Medical Services; Physician Assistant; Admitting Provider Family Medicine; Emergency Provider Emergency Medicine; PCP Internal Medicine; Visit Provider Internal Medicine
DX: N17.9 Acute kidney failure, unspecified (principal); N32.0 Bladder-neck obstruction; N13.8 Other obstructive and reflux uropathy; R33.9 Retention of urine, unspecified; E87.2 Acidosis; E87.5 Hyperkalemia; F41.9 Anxiety disorder, unspecified; I10 Essential (primary) hypertension; F17.210 Nicotine dependence, cigarettes, uncomplicated; Z28.21 Immunization not carried out because of patient refusal
CPT/HCPCS: 36415; 74176; 80048; 80053; 80069; 81001; 83690; 83735; 84100; 85025; 85027; 93005; 96374; 96375; 99285; A9270; J0610; J1815; J7120

== ENCOUNTER 2019-12-25 06:18 | Inpatient (IN) | payer SELFPAY ==
[2019-12-25] VITALS (13 sets, daily range): BP systolic 111–166; BP diastolic 53–87; PULSE 42–76; RESP 12–18; TEMP 36.3–36.5; O2SAT 97–100
--- NOTE | ~2019-12-25 | US_ITS ---
US pelvic limited 12/25/2019 10:02 Indication: Passing blood clots. Unable to void. Procedure: High-resolution Limited ultrasound of the pelvis Comparison: No prior studies for comparison. Findings: There is a Martinez catheter in the bladder. There is hypoechoic soft tissue surrounding the F oley balloon, likely blood clot. Prostate gland is enlarged measuring 57 cc. No focal bladder wall ab normality is seen. Impression: 1: Hypoechoic soft tissue in the bladder lumen, likely blood clot. No focal bladder wall abnormality. 2: Enlarged prostate gland. Reviewed, dictated and finalized at location A. CUTTER Impression: 1: Hypoechoic soft tissue in the bladder lumen, likely blood clot. No focal eric dder wall abnormality. 2: Enlarged prostate gland.
--- NOTE | 2019-12-25 06:41 | ED.MALEGU ---
HPI - Male Genitourinary General Chief complaint: Urogenital-Male Stated complaint: unable to void Time Seen by Provider: 12/25/19 06:31 Source: patient Mode of arrival: ambulatory Limitations: no limitations History of Present Illness HPI Narrative: 59 yo male with h/o bladder outlet obstruction, enlarge prostate who presents with c/o hematuria and urinary retention. Patient states that he has to self catheterize himself three times a day due to enlarge prostate. He states he has been doing this for a week. Yesterday morning he noticed a small amount of blood in his urine and he also had some afterwards. THis morning he states he was only able to obtain blood clots on self cath attempt. He states he did not get any urine output since his last catherization last night at 10 pm. He reports lower abdominal pain, but denies back pain, fever, nausea or vomiting. His urologist is Dr. Keenan. Complaint: other (hematuria) Related Data Allergies Allergy/AdvReac Type Severity Reaction Status Date / Time No Known Allergies Allergy Verified 12/25/19 07:03 Review of Systems Review of Systems: All systems reviewed & are unremarkable except as noted in HPI and below Constitutional: Constitutional: Denies body ache(s), Denies chills and Denies fever(s) Gastrointestinal: Gastrointestinal: Reports abdominal pain Genitourinary: Genitourinary: Reports hematuria and Denies genital pain Musculoskeletal: Musculoskeletal: Denies back pain [facility] Past Medical History Medical History (Updated 12/25/19 @ 13:47 by Caitie Villegas PA-C) Elevated blood pressure reading Enlarged prostate Hypertension Urinary retention Patient straight caths 3 times per day. Surgical History Surgical History Status post arthroscopy of left knee Status post biopsy of skin Family History Family History Mother Hypertension Diabetes mellitus Sibling Breast cancer Father Heart failure Social History Social History Social History: Markie lives in [place]. His 96-year-old mother lives at home with him. 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 He will drink a 12 pack of beer every other weekend. No drug use. Smoking packs per day: 0.5 Smoking cigarettes per day: 10.0 Years smoked: 45 Smoking pack-years: 22.50 Smoking status: Current some day smoker Tobacco type: cigarettes Additional smoking assessment comments: patient has not smoked for 4 days Alcohol intake: current Drinks per week: 12 Substance use: never Spiritual care concerns: No Agree to blood products: Yes Exam Narrative: Exam Narrative: GENERAL: Well-appearing, well-nourished, and in no acute distress. HEAD: Normocephalic, atraumatic EYES: PERRLA and EOMI, conjunctiva clear without discharge THROAT:Mucous membranes moist, Oropharynx normal without erythema, exudate, peritonsillar swelling or fluctuance NECK: Supple, without lymphadenopathy or mass RESPIRATORY: No respiratory distress, Airway patent, Respirations non-labored, Clear to auscultation without rales, rhonchi or wheeze HEART: Regular rate and rhythm. No murmur heard. Normal peripheral pulses. ABDOMEN: Soft, suprapubic tenderness, distended, normal active bowel sounds. No masses. No rebound or guarding, No organomegaly. there is blood at urethral meatus EXTREMITIES: No edema, normal strength with full range of motion. SKIN: Warm, dry, normal color without rash NEURO: Alert and oriented x3. CN 2-12 grossly intact. No focal deficits. PSYCH: Normal mood and affect. Course Consultations Consultation #1: I spoke with Dr. Vieyra. He states to have nurse manually irrigate and then obtain bladder ultrasound to determine
[2019-12-25 07:27] LABS: Basophils Percent Auto 0.3 % (0.2-1.2); Eosinophils Absolute Auto 0.2 K/mm3 (0-0.3); Eosinophils Percent Auto 4.6 % (0-4.4); Hematocrit 38.2 % (42.0-52.0); Hemoglobin 12.6 g/dL (14.0-18.0); Immature Granulocyte Absolute 0.01 K/mm3 (0.00-0.031); Immature Granulocyte Percent A 0.3 % (0-0.5); Lymphocytes Absolute Auto 0.89 K/mm3 (0.9-3.2); Lymphocytes Percent Auto 24.1 % (18.3-44.2); Mean Corpuscular Hemoglobin 28.8 pg (26-34); Mean Corpuscular Volume 87.2 fl (80-100); Mean Platelet Volume 9.9 fl (7.4-10.4); Monocytes Absolute Auto 0.3 K/mm3 (0.1-0.6); Monocytes Percent Auto 8.4 % (2.6-8.5); Neutrophils Absolute Auto 2.3 K/mm3 (1.3-6.7); Neutrophils Percent Auto 62.3 % (45.5-73.1); Platelet Count Result 203 k/mm3 (150-375); Red Blood Count 4.38 M/mm3 (4.6-6.20); Red Cell Distribution Width 12.8 % (11.5-14.5); White Blood Count 3.7 K/mm3 (4.5-10.0)
[2019-12-25 07:33] LABS: Add Urine Microscopic? YES; Appearance Urine Cloudy (Clear); Bacteria Urine Trace /hpf; Bilirubin Urine Negative (Negative); Blood Urine 3+ (Negative); Color Urine Amber (Yellow); Glucose Urine UA Negative (Negative); Ketones Urine Negative (Negative); Leukocyte Esterase Ur Negative LEU/UL (Negative); Nitrate Urine Positive (Negative); Protein Urine 2+ mg/dL (Negative); RBC Urine >75 /hpf (0-2); Specific Grav Ur 1.011 (1.001-1.035); WBC Urine >75 /hpf
[2019-12-25 07:35] LABS: INR 0.9; Prothrombin Time 12.3 Seconds (11.1-14.7)
[2019-12-25 07:36] LABS: Partial Thromboplastin Time 37.9 SECONDS (22.3-36.8)
[2019-12-25 07:36] LABS: Blood Urea Nitrogen 16 mg/dL (9-20); Calcium 8.9 mg/dL (8.4-10.2); Carbon Dioxide 25 mmol/L (22-30); Chloride 103 mmol/L (98-107); Estimated CRCL calculation 79 ml/min; Estimated Glomerular Filt Rate > 60; Glucose 105 mg/dL (75-110); Potassium 3.6 mmol/L (3.4-5.0); Sodium 139 mmol/L (137-145)
--- NOTE | 2019-12-25 09:41 | PC.NURSE ---
3 way clamped at this time. Ultrasound requested pt bladder to be full for exam
[2019-12-25 11:37] LABS: Prostate Specific Antigen 12.3 ng/mL (< OR = 4.0)
--- NOTE | 2019-12-25 13:00 | PM.IMHP ---
H&P: HPI History of Present Illness Chief complaint: Hematuria and urinary retention. Narrative: Markie Murdock is a 59 year old male who presented to the emergency department earlier this morning from home for evaluation of hematuria and urinary retention. He is known to myself and the hospital service as he was admitted to us 11/28? 11/30/2019 after he presented with urinary symptoms. He was found to have an acute kidney injury secondary to bladder outlet obstruction and urinary retention. He was discharged home with Martinez catheter, and since that time he has been straight cathing himself 3 times a day. Within the last several days he has noticed some pink tinge to his urine, and today he notes passing dark red blood and clots. Ultrasound today showed findings of a probable blood clot in the bladder lumen, and at this time he is awaiting to go to the OR for cystoscopy per Dr. Vieyra. He denies fever, chills, sweats, nausea, and vomiting. He has not had abdominal or low back discomfort. Last meal was yesterday evening. Review of Systems Review of Systems: All systems reviewed & are unremarkable except as noted in HPI and below PMFSH Past Medical History Medical History (Updated 12/25/19 @ 13:47 by Caitie Villegas PA-C) Elevated blood pressure reading Enlarged prostate Hypertension Urinary retention Patient straight caths 3 times per day. Surgical History Surgical History Status post arthroscopy of left knee Status post biopsy of skin Family History Family History Mother Hypertension Diabetes mellitus Sibling Breast cancer Father Heart failure Social History Social History Social History: Markie lives in [place]. His 96-year-old mother lives at home with him. 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 He will drink a 12 pack of beer every other weekend. No drug use. Smoking packs per day: 0.5 Smoking cigarettes per day: 10.0 Years smoked: 45 Smoking pack-years: 22.50 Smoking status: Current some day smoker Tobacco type: cigarettes Additional smoking assessment comments: patient has not smoked for 4 days Alcohol intake: current Drinks per week: 12 Substance use: never Spiritual care concerns: No Agree to blood products: Yes Meds Home Medications and Allergies Home Medications Medication Instructions Recorded Confirmed Type amlodipine 2.5 mg PO QAM #30 tablet 11/30/19 Rx finasteride 5 mg PO DAILY #30 tablet 11/30/19 Rx tamsulosin [Flomax] 0.4 mg PO HS #30 cap 11/30/19 Rx Allergies Allergy/AdvReac Type Severity Reaction Status Date / Time No Known Allergies Allergy Verified 12/25/19 07:03 Vital Signs Vital Signs - 24 hr 12/25/19 06:21 12/25/19 08:49 12/25/19 10:27 Temperature 97.3 F L Pulse Rate 76 57 L 59 L Respiratory Rate 18 18 16 Blood Pressure 166/87 H 138/78 132/73 Pulse Oximetry 99 99 100 12/25/19 12:25 12/25/19 13:21 Temperature Pulse Rate 52 L 54 L Respiratory Rate 18 16 Blood Pressure 134/70 148/67 H Pulse Oximetry 99 97 Exam Narrative: Exam Narrative: General: Well-developed, well-nourished male supine in bed in no acute distress. HEENT: Normocephalic, atraumatic. PERRL, EOMI. Sclerae anicteric. Oral mucosa moist. Neck: Supple. Respiratory: Lungs are clear to auscultation bilaterally. Cardiovascular: Regular rate and rhythm with S1-S2. Gastrointestinal: Abdomen is soft, nontender, and nondistended with positive bowel sounds. Genitourinary: Three-way Martinez in place, undergoing CBI. Dark blood in the catheter bag. Skin: Warm and dry. No rash or lesions on limited exam. Extremities: No cyanosis, clubbing, or edema. Radial and pedal pulses intact. Ne
--- NOTE | 2019-12-25 13:19 | WPDANESEPP ---
Anes - Eval Pre Procedure Procedure: Operation Date: 12/25/19 14:00 Proposed Procedures p Cystoscopy, Evacuation Bladder Clots - Amanda Vieyra MD Date/Time: 12/25/19 13:19 Surgeon: Dr. Vieyra Preop Diagnosis: Hematuria Pre Op Diagnosis: Hematuria Patient Data Age: 59 Gender: M Height: 5 ft 7 in Weight: 80 kg Last Vital Signs Temp 36.3 C L 12/25/19 06:21 Pulse 52 L 12/25/19 12:25 Resp 18 12/25/19 12:25 BP 134/70 12/25/19 12:25 Pulse Ox 99 12/25/19 12:25 Allergies Allergy/AdvReac Type Severity Reaction Status Date / Time No Known Allergies Allergy Verified 12/25/19 07:03 Home Medications Medication Instructions Recorded Confirmed Type amlodipine 2.5 mg PO QAM #30 tablet 11/30/19 Rx finasteride 5 mg PO DAILY #30 tablet 11/30/19 Rx tamsulosin [Flomax] 0.4 mg PO HS #30 cap 11/30/19 Rx Laboratory Tests 12/25/19 12/25/19 12/25/19 07:13 07:14 07:15 WBC 3.7 K/mm3 L K/mm3 (4.5-10.0) RBC 4.38 M/mm3 L M/mm3 (4.6-6.20) Hgb 12.6 g/dL L g/dL (14.0-18.0) Hct 38.2 % L % (42.0-52.0) MCV 87.2 fl fl (80-100) MCH 28.8 pg pg (26-34) MCHC 33.0 g/dl g/dl (32-36) RDW 12.8 % % (11.5-14.5) Plt Count 203 k/mm3 k/mm3 (150-375) MPV 9.9 fl fl (7.4-10.4) Immature Gran % (Auto) 0.3 % % (0-0.5) Neut % (Auto) 62.3 % % (45.5-73.1) Lymph % (Auto) 24.1 % % (18.3-44.2) [place] % (Auto) 8.4 % % (2.6-8.5) Eos % (Auto) 4.6 % H % (0-4.4) Baso % (Auto) 0.3 % % (0.2-1.2) Lymph # (Auto) 0.89 K/mm3 L K/mm3 (0.9-3.2) [place] # (Auto) 0.3 K/mm3 K/mm3 (0.1-0.6) Eos # (Auto) 0.2 K/mm3 K/mm3 (0-0.3) Baso # (Auto) 0.0 K/mm3 K/mm3 (0.0-0.1) Abs Immat Gran (auto) 0.01 K/mm3 K/mm3 (0.00-0.031) Absolute Neuts (auto) 2.3 K/mm3 K/mm3 (1.3-6.7) Absolute Nucleated RBC 0.0 K/mm3 K/mm3 (0.0-0.012) Nucleated RBC % 0.0 % % (0.0-0.2) PT 12.3 Seconds Seconds (11.1-14.7) INR 0.9 APTT 37.9 SECONDS H SECONDS (22.3-36.8) Sodium Potassium Chloride Carbon Dioxide BUN Creatinine Estim Creat Clear Calc Estimated GFR Glucose Calcium Prostate Specific Ag 12.3 ng/mL H ng/mL (< OR = 4.0) Urine Color Urine Appearance Urine pH Ur Specific [place] Urine Protein Urine Glucose (UA) Urine Ketones Ur Blood (Man) Urine Nitrate Urine Bilirubin Urine Urobilinogen Leukocyte Esterase Rfl Urine RBC Urine WBC Urine Bacteria 12/25/19 12/25/19 07:15 07:15 WBC RBC Hgb Hct MCV MCH MCHC RDW Plt Count MPV Immature Gran % (Auto) Neut % (Auto) Lymph % (Auto) [place] % (Auto) Eos % (Auto) Baso % (Auto) Lymph # (Auto) [place] # (Auto) Eos # (Auto) Baso # (Auto) Abs Immat Gran (auto) Absolute Neuts (auto) Absolute Nucleated RBC Nucleated RBC % PT INR APTT Sodium 139 mmol/L mmol/L (137-145) Potassium 3.6 mmol/L mmol/L (3.4-5.0) Chloride 103 mmol/L mmol/L (98-107) Carbon Dioxide 25 mmol/L mmol/L (22-30) BUN 16 mg/dL mg/dL (9-20) Creatinine 0.80 mg/dL mg/dL (0.7-1.3) Estim Creat Clear Calc 79 ml/min ml/min Estimated GFR > 60 (59 - ) Glucose 105 mg/dL mg/dL (75-110) Calcium 8.9 mg/dL mg/dL (8.4-10.2) Prostat
--- NOTE | 2019-12-25 13:39 | WPDANESEFPP ---
Anes - Eval Final PreProcedure Day of Procedure 12/25/19 13:39 Patient weight: overweight Heart: regular rate and rhythm Lungs: decreased breath sounds Airway: Mallampati scale class 1 Neurological: alert and oriented Last oral intake: >/= 8 hours ASA classification: III Emergent: yes Anesthetic plan: proceed Anesthesia type and monitoring: general LMA and standard monitoring Other findings: chronic tobacco abuse htn Informed Consent: The patient's anesthetic plan and its attendant risks and benefits were discussed with the patient/family/POA. Questions were solicited and answers provided to the satisfaction of the patient/family/POA.
[2019-12-25] MEDS: LACTATED RINGERS 1,000 ML 30 ML IV CONT (13:52)
[2019-12-25] MEDS: LIDOCAINE HCL 2% GEL UROJET 10 ML PKG MUCOUS MEM (13:58)
--- NOTE | 2019-12-25 14:35 | WPDURCON ---
Assessment and Plan Additional Plan this patient has an enlarged prostate and has developed clots in his bladder from self cath. He will need clot evacuation. Urology Consult Note HPI Date Seen: 12/25/19 Requesting Physician: Amanda Vieyra MD Primary Care Provider: Tapan Arias Consult Narrative Narrative: Markie Murdock is a 59 year old male [facility] Past Medical History Medical History (Updated 12/25/19 @ 13:47 by Caitie Villegas PA-C) Elevated blood pressure reading Enlarged prostate Hypertension Urinary retention Patient straight caths 3 times per day. Surgical History Surgical History Status post arthroscopy of left knee Status post biopsy of skin Family History Family History Mother Hypertension Diabetes mellitus Sibling Breast cancer Father Heart failure Social History Social History Social History: Markie lives in [place]. His 96-year-old mother lives at home with him. 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 He will drink a 12 pack of beer every other weekend. No drug use. Smoking packs per day: 0.5 Smoking cigarettes per day: 10.0 Years smoked: 45 Smoking pack-years: 22.50 Smoking status: Current some day smoker Tobacco type: cigarettes Additional smoking assessment comments: patient has not smoked for 4 days Alcohol intake: current Drinks per week: 12 Substance use: never Spiritual care concerns: No Agree to blood products: Yes Meds Home Medications and Allergies Home Medications Medication Instructions Recorded Confirmed Type amlodipine 2.5 mg PO QAM #30 tablet 11/30/19 Rx finasteride 5 mg PO DAILY #30 tablet 11/30/19 Rx tamsulosin [Flomax] 0.4 mg PO HS #30 cap 11/30/19 Rx Allergies Allergy/AdvReac Type Severity Reaction Status Date / Time No Known Allergies Allergy Verified 12/25/19 07:03 Vital Signs Vital Signs - 24 hr 12/25/19 06:21 12/25/19 08:49 12/25/19 10:27 Temperature 36.3 C L Pulse Rate 76 57 L 59 L Respiratory Rate 18 18 16 Blood Pressure 166/87 H 138/78 132/73 Pulse Oximetry 99 99 100 12/25/19 12:25 12/25/19 13:21 Temperature Pulse Rate 52 L 54 L Respiratory Rate 18 16 Blood Pressure 134/70 148/67 H Pulse Oximetry 99 97 Exam HENMT: Head: normal to inspection Mouth: Yes Normal oral and palatal mucosa present Eyes: General: appearance normal, both eyes and all related structures Resp: Effort & Inspection: normal respiratory effort : General: Yes bladder normal to palpation Extrem: General: normal to inspection Results Labs CBC & Chem 7: 12/25/19 07:15 12/25/19 07:15 Labs: Short CBC 12/25/19 Range/Units 07:15 WBC 3.7 L (4.5-10.0) K/mm3 Hgb 12.6 L (14.0-18.0) g/dL Hct 38.2 L (42.0-52.0) % Plt Count 203 (150-375) k/mm3 BMP 12/25/19 07:15 Sodium 139 Potassium 3.6 Chloride 103 Carbon Dioxide 25 BUN 16 Creatinine 0.80 Glucose 105 Calcium 8.9 Urine 12/25/19 Range/Units 07:15 Urine Color Ruth (Yellow) Urine Appearance Cloudy H (Clear) Urine pH 6.0 (5.0-9.0) Ur Specific [place] 1.011 (1.001-1.035) Urine Protein 2+ H (Negative) mg/dL Urine Glucose (UA) Negative (Negative) mg/dL Quality VTE Prophylaxis VTE prophylaxis: mechanical ordered
--- NOTE | 2019-12-25 14:41 | PM.OP ---
Procedure Note - Brief Procedure Note - Brief Date of procedure: 12/25/19 Pre-op diagnosis: Hematuria and urinary retention. Post-op diagnosis: same Procedure performed: cysto, clot evacuation, fulguration of bleeders Description of procedure: see op note Surgeon: Amanda Vieyra MD Estimated blood loss (mL): 5.0 Complications: No immediate complications Findings: 20-50 cc clot evacuated few spots at bladder neck bleeding
[2019-12-25] MEDS: LACTATED RINGERS 1,000 ML 125 ML IV CONT (16:44)
--- NOTE | 2019-12-25 17:01 | PC.NURSE ---
Patient arrived on our floor @1605 from PACU. Patient oriented to room, bed alarm on, call light within reach.
--- NOTE | 2019-12-25 18:54 | OP_ITS ---
DATE OF PROCEDURE: HISTORY: The patient has been seen in our office by Dr. Self for urinary retention. I believe his original consultation here was earlier this month Sonny. He has had a chance at voiding, but failed and has an elevated PSA and an enlarged prostate. He was started on finasteride and tamsulosin and taught to intermittently catheterize. He has been doing this successfully for about 6 days. No bleeding during that time, but starting 2 days ago he started having blood in the urine and this last time he catheterized he simply could not get out any urine at all, just came out blood and very little of it. He presented to the emergency room where he was found to have about 1000 cc in his bladder, and although some of this was evacuated the bladder ultrasound done in department showed that he had at least a 4 cm clot in the bladder. He is brought to cysto at this time for evacuation of the clot. DESCRIPTION OF OPERATION: After obtaining informed consent, the patient was taken to the cystoscopy suite where a time-out was taken. He was correctly identified. Cystourethroscopy showed a normal urethra. The prostate was elongated, perhaps 40 g resectable. There was some evidence of catheter trauma to the prostate at the 12 o'clock position and to the right side of the prostatic bladder neck there is a sizeable median lobe the right side of which was bleeding. There were only perhaps 50 cc of clot within the bladder. This was evacuated. Both orifices were visualized. There did seem to be some oozing circumferentially around the bladder neck and so a rollerball electrode was used. The cystoscope was withdrawn and a resectoscope sheath was inserted using an SeeMore Interactive working element. With the settings of 60, we were able to fulgurate the bladder neck. This seemed to result in much clearer urine. At this point, the procedure was terminated. The patient was awakened and returned to the recovery room in stable condition. Let us watch him overnight. I would feel better if he left the catheter in for a couple of weeks and see if by then he will have passed the eschar from the fulguration and he could go back to intermittently catheterizing. 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 D I MT: Walker
[2019-12-25] MEDS: TAMSULOSIN HCL 0.4 MG CAPSULE PO (21:39)
[2019-12-26] MEDS: LACTATED RINGERS 1,000 ML 125 ML IV CONT ×2 (00:49→10:02)
[2019-12-26 06:00] VITALS: BP 122/51; PULSE 53; RESP 18; TEMP 36.8; O2SAT 97
[2019-12-26 06:24] LABS: Hematocrit 35.5 % (42.0-52.0); Hemoglobin 11.3 g/dL (14.0-18.0); Mean Corpuscular HGB Conc 31.8 g/dl (32-36); Mean Corpuscular Hemoglobin 28.5 pg (26-34); Mean Corpuscular Volume 89.6 fl (80-100); Mean Platelet Volume 10.2 fl (7.4-10.4); Platelet Count Result 185 k/mm3 (150-375); Red Blood Count 3.96 M/mm3 (4.6-6.20); Red Cell Distribution Width 12.8 % (11.5-14.5); White Blood Count 5.6 K/mm3 (4.5-10.0)
[2019-12-26 06:40] LABS: Blood Urea Nitrogen 10 mg/dL (9-20); Calcium 8.4 mg/dL (8.4-10.2); Carbon Dioxide 27 mmol/L (22-30); Chloride 99 mmol/L (98-107); Estimated CRCL calculation 79 ml/min; Estimated Glomerular Filt Rate > 60; Glucose 93 mg/dL (75-110); Potassium 3.8 mmol/L (3.4-5.0); Sodium 139 mmol/L (137-145)
--- NOTE | 2019-12-26 07:11 | WPDUROPN2 ---
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 with atonic bladder requiring intermittent self-catheterization. Hematuria due to traumatic catheterization. Urine now clear on slow CBI. Stop CBI this morning. Home later today with indwelling catheter x7-10 days to allow urethra some time to heal. Discussed with pt. Continue Finasteride and Tamsulosin. Subjective Subjective Date/Time Seen: 12/26/19 07:11 Comfortable, no complaints Review of Systems Cardiovascular: Cardiovascular: Denies chest pain, Denies lightheadedness, Denies palpitations and Denies dyspnea Respiratory: Respiratory: Denies dyspnea Gastrointestinal: Gastrointestinal: Denies diarrhea, Denies nausea and Denies vomiting Genitourinary: Genitourinary: Denies hematuria and Denies dysuria Endocrine: Endocrine: Denies palpitations Exam Const: General: no acute distress Resp: Effort & Inspection: normal respiratory effort GI: Inspection: non-distended GI Palp: No abdominal tenderness and No Guarding due to palpation present (GI) Auscultation: normal bowel sounds Objective Data Vital Signs Vital Signs: Vital Signs - 24 hr 12/25/19 08:49 12/25/19 10:27 12/25/19 12:25 Temperature Pulse Rate 57 L 59 L 52 L Respiratory Rate 18 16 18 Blood Pressure 138/78 132/73 134/70 Pulse Oximetry 99 100 99 12/25/19 13:21 12/25/19 14:18 12/25/19 14:30 Temperature 97.5 F L Pulse Rate 54 L 58 L 52 L Respiratory Rate 16 12 14 Blood Pressure 148/67 H 115/66 134/69 Pulse Oximetry 97 100 100 12/25/19 14:45 12/25/19 15:00 12/25/19 15:15 Temperature Pulse Rate 49 L 45 L 45 L Respiratory Rate 13 15 13 Blood Pressure 164/78 H 156/76 H 161/79 H Pulse Oximetry 98 97 98 12/25/19 15:30 12/25/19 15:45 12/25/19 22:00 Temperature 97.7 F Pulse Rate 42 L 65 49 L Respiratory Rate 12 18 16 Blood Pressure 164/83 H 165/75 H 111/53 L Pulse Oximetry 97 100 99 12/26/19 06:00 Temperature 98.2 F Pulse Rate 53 L Respiratory Rate 18 Blood Pressure 122/51 L Pulse Oximetry 97 Intake/Output Intake/Output: Intake & Output 12/23/19 12/24/19 12/25/19 12/26/19 23:59 23:59 23:59 23:59 Intake Total 45866 1300 Output Total 89523 1650 Balance -1800 -350 Meds/Results Medications: Active Medications Generic Name Dose Route Start Last Admin Trade Name Freq PRN Reason Stop Dose Admin Amlodipine Besylate 2.5 mg 12/26/19 09:00 Norvasc PO QAM JOSE RAFAEL Fentanyl Citrate 25 mcg 12/25/19 14:16 Sublimaze IV PUSH Q2M PRN Pain Finasteride 5 mg 12/26/19 09:00 Proscar PO DAILY JOSE RAFAEL Lactated Ringer's 1,000 mls @ 30 mls/hr 12/25/19 12:55 12/25/19 14:18 Lr - Lactated Ringers Iv IV CONT Infused .Q24H JOSE RAFAEL Infusion Acetaminophen 1,000 mg in 100 mls @ 400 mls/hr 12/25/19 13:04 Ofirmev 1,000 Mg Ivpb IVPB 12/26/19 13:05 Q6H PRN Mild Pain (1-3) or Fever Lactated Ringer's 1,000 mls @ 125 mls/hr 12/25/19 13:05 12/26/19 00:49 Lr - Lactated Ringers Iv IV CONT 125 mls/hr .Q8H JOSE RAFAEL Administration Lactated Ringer's 1,000 mls @ 30 mls/hr 12/25/19 14:20 Lr - Lactated Ringers Iv IV CONT .Q24H JOSE RAFAEL Ondansetron HCl 4 mg 12/25/19 13:04 Zofran Inj IV PUSH Q4H PRN Nausea Ondansetron HCl 4 mg 12/25/19 14:16 Zofran Inj IV PUSH ONCE PRN Nausea Oxycodone HCl 5 mg 12/25/19 14:16 Roxicodone Ir Tablet PO ONCE PRN Pain Tamsulosin HCl 0.4 mg 12/25/19 21:00 12/25/19 21:39 Flomax PO 0.4 mg HS JOSE RAFAEL Administration Radiology Results: ITS Impressions Pelvis Ultrasou
[2019-12-26 09:48] VITALS: BP 114/59; PULSE 64
[2019-12-26] MEDS: FINASTERIDE 5 MG TABLET PO (09:50)
[2019-12-26] MEDS: AMLODIPINE BESYLATE 2.5 MG TABLET PO (09:50)
--- NOTE | 2019-12-26 12:34 | PM.DS ---
DS: Diagnosis Admitting Diagnosis Admitting Diagnosis: Gross hematuria Discharge Diagnosis (1) Gross hematuria: Code(s): R31.0 - Gross hematuria Status: Acute Assessment and Plan: 59 year old male who presented to the emergency department earlier this morning from home for evaluation of hematuria and urinary retention.He was found to have an acute kidney injury secondary to bladder outlet obstruction and urinary retention last admission and was discharged home with Mcclelland catheter, pt has been straight cathing himself 3 times a day, unfortunately, pt had some hematuria due to trauma while self cathing. Pt had us here showing blood clot in the bladder lumen. Pt went to OR with Dr. Vieyra. Clot was removed from the bladder. Pt is stable for discharge as per urology, Urine is clear, pt to continue with mcclelland catheter at home for 7- 10 days time and to continue on Continue Finasteride and Tamsulosin (2) Enlarged prostate: Code(s): N40.0 - Benign prostatic hyperplasia without lower urinary tract symptoms Status: Acute Assessment and Plan: PSA is 12.3 today. Will need outpatient follow up. (3) Normocytic anemia: Code(s): D64.9 - Anemia, unspecified Status: Acute Assessment and Plan: Hb is 11.3 (4) Hypertension: Code(s): I10 - Essential (primary) hypertension Status: Acute Assessment and Plan: Blood pressures were reviewed and they are stable. Continue antihypertensives as before DS: Summary Time Spent with Patient Time attestation: Total time spent providing and/or coordinating discharge services:40 minutes on day of discharge Exam Narrative: Exam Narrative: General: Well-developed HEENT: Normocephalic Neck: Supple. Respiratory: Lungs are clear to auscultation bilaterally. Cardiovascular: Regular rate and rhythm with S1-S2. Gastrointestinal: Abdomen is soft, nontender, and nondistended with positive bowel sounds. Genitourinary: Mcclelland cathter in situ Extremities: No cyanosis, clubbing, or edema. Radial and pedal pulses intact. Neurological: Alert. Cranial nerves 2-12 are grossly intact. No gross focal deficits to casual conversation. Psychiatric: Pleasant and cooperative DS: Data Data Completed and Pending Labs on day of discharge: Labs from last 24 hours 12/26/19 12/26/19 06:09 06:09 WBC 5.6 RBC 3.96 L Hgb 11.3 L Hct 35.5 L MCV 89.6 MCH 28.5 MCHC 31.8 L RDW 12.8 Plt Count 185 MPV 10.2 Sodium 139 Potassium 3.8 Chloride 99 Carbon Dioxide 27 BUN 10 D Creatinine 0.80 Estim Creat Clear Calc 79 Estimated GFR > 60 Glucose 93 Calcium 8.4 Discharge Plan Discharge Attending physician on discharge: Thalia Figueroa Consulting providers: Amanda Vieyra Discharging Clinician: Thalia Figueroa Anticipated Discharge Date/Time: 12/26/19 12:33 Patient Disposition: Home, Self-Care Activity: as tolerated Diet: regular Discharge Instructions: Pt discharged on mcclelland catheter for 7-10 days time Patient Instructions: Antibiotic Form, How to Stop Smoking (DC) Stand Alone Forms: General Discharge Information Follow-up/Referrals: Tapan Arias [Other] [Primary Care Provider] - Amanda Vieyra MD [Physician] - Discharge Medications: Continued finasteride 5 mg tablet 5 mg PO DAILY Qty: 30 RF: 0 tamsulosin [Flomax] 0.4 mg capsule 0.4 mg PO HS Qty: 30 RF: 0 amlodipine 2.5 mg Tablet 2.5 mg PO QAM Qty: 30 RF: 0 Date of admission: 12/25/19 14:34 Admitting Provider: Yunior Howe Attending physician on admission: Amanda Vieyra Condition: Stable
--- NOTE | 2019-12-26 15:28 | PC.NURSE ---
1525 Discharged home per self in POV, awake, alert, and oriented times four, no complaints. Took discharge paperwork, personal affects and mcclelland supply. Volunteer escorted out to PO in a wheelchair.
== END 2019-12-26 15:25 | disposition home or self-care (01) | DRG 468 ==
LOC: ANHED 12:55 → ANHSURGERY 12:57 → ANH3MEDSUR 17:23
PROVIDERS: Physician Assistant; Urology; Admitting Provider Internal Medicine; Emergency Provider General Practice; Visit Provider Family Medicine
PROC: 0TCB8ZZ Extirpation of Matter from Bladder, Via Natural or Artificial Opening Endoscopic (ICD-10-PCS; CPT 52001; principal; 2019-12-25 14:00)
DX: S37.29XA Other injury of bladder, initial encounter (principal); X58.XXXA Exposure to other specified factors, initial encounter; R31.0 Gross hematuria; D62 Acute posthemorrhagic anemia; N31.2 Flaccid neuropathic bladder, not elsewhere classified; N40.1 Benign prostatic hyperplasia with lower urinary tract symptoms; R33.9 Retention of urine, unspecified; N17.9 Acute kidney failure, unspecified; I10 Essential (primary) hypertension; D64.9 Anemia, unspecified; Z87.891 Personal history of nicotine dependence
CPT/HCPCS: 36415; 76857; 80048; 81001; 84153; 85025; 85027; 85610; 85730; 87077; 87086; 87088; 87186; 96365; 99285; A9270; C1758; J0696; J2250; J2405; J2704; J3010; J7120

== ENCOUNTER 2020-01-13 06:19 | Emergency (ER) | payer SELFPAY ==
--- NOTE | ~2020-01-13 | CT_ITS ---
EXAMINATION: CT abdomen pelvis w con DATE: 01/13/2020 10:31 INDICATION: Hematuria. Fever. TECHNIQUE: Computed tomography (CT) of the abdomen and pelvis was performed with 100 cc Omnipaque 350 intravenous contrast. Automated exposure control and iterative reconstruction technique were employe d. Exam dose: 409.85 mGy-cm total exam DLP. COMPARISON: 11/28/2019 CT abdomen pelvis FINDINGS: Old pulmonary granulomatous disease. The lower lung zones are clear of infiltrate or consol idation. There is an up to approximately 5 cm hypoattenuating posterior right hepatic dome lesion with periphe ral puddling of contrast material consistent with cavernous hemangioma. There may be a similar smalle r lesion in the posterolateral lower right hepatic lobe. There is an approximately 2 cm hypoattenuating lesion in the posterior aspect of the upper right hepa tic lobe at the posterolateral margin of the inferior vena cava. Spleen is within upper limits of normal size at approximately 12.2 cm height. There is an approximate ly 1 cm hypoattenuating likely benign lesion of the spleen. Normal morphology of the adrenal glands. No right renal mass lesion 1.5 cm left renal cyst. Approximately 7 mm left renal cyst. An additional smaller 4 mm cyst is sugges broderick. There is prominent enhancement of the calyces, infundibula, pelvis and ureter on the left. There is l eft periureteral stranding. There is prominent Prominent enhancement of the mucosa of the urinary eric dder. There is bladder wall diffuse thickening and pericystic fat stranding. There is minimal enhance ment of the right renal collecting system and ureter. The findings suggest extensive urinary tract in fection. Prostate enlargement. A Martinez catheter is present within the evacuated urinary bladder. Normal caliber of the abdominal aorta, with some atherosclerotic calcification. There are shotty periaortic and aortocaval lymph nodes. Normal appendix. There are some small bowel and proximal colonic fluid levels which may be secondary to mild adynamic ileus or enterocolitis. Degenerative spurring of the lower thoracic spine. There is moderate degenerative disease in the mid and lower lumbar area. No suspicious osteolytic or osteoblastic lesions. IMPRESSION: Prominent enhancement of the urothelium of the left kidney, left ureter and urinary blad tia and to a lesser extent the right urinary tract, urinary bladder wall thickening, fat stranding ar ound the left ureter and urinary bladder; findings suggest extensive urinary tract infection Prostate enlargement Left renal cysts Several hepatic lesions are noted including 2 probable cavernous hemangiomas and one probable cyst Splenic size is upper limits of normal, with 1 cm probable benign hypoenhancing lesion. Reviewed, dictated and finalized at [facility]. Reviewed, dictated and finalized at location A. IMPRESSION: Prominent enhancement of the urothelium of the left kidney, left u reter and urinary bladder and to a lesser extent the right urinary tract, urina ry bladder wall thickening, fat stranding around the left ureter and urinary bl adder; findings suggest extensive urinary tract infection Prostate enlargement Left renal cysts Several hepatic lesions are noted including 2 probable cavernous hemangiomas an d one probable cyst Splenic size is upper limits of normal, with 1 cm probable benign hypoenhancing lesion.
[2020-01-13 06:23] VITALS: BP 110/68; PULSE 93; RESP 16; TEMP 36.8; O2SAT 98
--- NOTE | 2020-01-13 06:50 | ED.MALEGU ---
HPI - Male Genitourinary General Chief complaint: Urogenital-Male Stated complaint: BLOOD IN MCCLELLAND BAG Time Seen by Provider: 01/13/20 06:41 Source: patient Mode of arrival: ambulatory Limitations: no limitations History of Present Illness HPI Narrative: 59 yo male who presents with c/o of blood in mcclelland bag. Patient states he has been having blood in his urine intermittently x 2 weeks. Patient was admitted at the end of December for hematuria and he had to have clot evacuation performed. Patient states that his urine has been slightly cloudy since and he was started on cipro yesterday for presumed infection. He states after he started cipro he started noticing more bloody urine in his mcclelland bag. He states catheter appears to be draining without difficulty . HE denies abdominal pain, nausea or vomiting. He states he has been having intermittent fever at night. He states he last had fever 102 a couple of nights ago. He denies any other symptoms to account for a fever. Onset (ago): day(s) Duration: intermittent Related Data Home Medications Medication Instructions Recorded Confirmed ciprofloxacin HCl [Cipro] 01/13/20 Allergies Allergy/AdvReac Type Severity Reaction Status Date / Time No Known Allergies Allergy Verified 01/13/20 06:40 Review of Systems Constitutional: Constitutional: Denies chills and Denies fever(s) Respiratory: Respiratory: Denies cough Gastrointestinal: Gastrointestinal: Denies abdominal pain, Denies nausea and Denies vomiting Genitourinary: Genitourinary: Reports hematuria, Denies oliguria, Denies dysuria and Denies urinary frequency Musculoskeletal: Musculoskeletal: Denies back pain PMFSH Past Medical History Medical History Elevated blood pressure reading Enlarged prostate Hypertension Urinary retention Patient straight caths 3 times per day. Surgical History Surgical History Status post arthroscopy of left knee Status post biopsy of skin Family History Family History Mother Hypertension Diabetes mellitus Sibling Breast cancer Father Heart failure Social History Social History Social History: Markie lives in [place]. His 96-year-old mother lives at home with him. 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 He will drink a 12 pack of beer every other weekend. No drug use. Smoking packs per day: 0.5 Smoking cigarettes per day: 10.0 Years smoked: 45 Smoking pack-years: 22.50 Smoking status: Current every day smoker Tobacco type: cigarettes Additional smoking assessment comments: patient has not smoked for 4 days Alcohol intake: former Drinks per week: 12 Substance use: never Gender identity (if verbalized by the patient): Male Spiritual care concerns: No Agree to blood products: Yes Exam Narrative: Exam Narrative: GENERAL: Well-appearing, well-nourished, and in no acute distress. HEAD: Normocephalic, atraumatic NOSE: Nares clear, no rhinorrhea or epistaxis THROAT:Mucous membranes moist, Oropharynx normal without erythema, exudate, peritonsillar swelling or fluctuance NECK: Supple, without lymphadenopathy or mass RESPIRATORY: No respiratory distress, Airway patent, Respirations non-labored, Clear to auscultation without rales, rhonchi or wheeze HEART: Regular rate and rhythm. No murmur heard. Normal peripheral pulses. ABDOMEN: Soft, nontender, nondistended, normal active bowel sounds. No masses. No rebound or guarding, No organomegaly. EXTREMITIES: No edema, normal strength with full range of motion. SKIN: Warm, dry, normal color without rash NEURO: Alert and oriented x3. CN 2-12 grossly intact. No focal d
[2020-01-13 07:10] LABS: Basophils Percent Auto 0.3 % (0.2-1.2); Eosinophils Absolute Auto 0.1 K/mm3 (0-0.3); Eosinophils Percent Auto 1.7 % (0-4.4); Hemoglobin 10.4 g/dL (14.0-18.0); Immature Granulocyte Absolute 0.05 K/mm3 (0.00-0.031); Immature Granulocyte Percent A 0.7 % (0-0.5); Lymphocytes Absolute Auto 0.65 K/mm3 (0.9-3.2); Lymphocytes Percent Auto 8.9 % (18.3-44.2); Mean Corpuscular HGB Conc 33.5 g/dl (32-36); Mean Corpuscular Hemoglobin 28.4 pg (26-34); Mean Corpuscular Volume 84.7 fl (80-100); Mean Platelet Volume 9.9 fl (7.4-10.4); Monocytes Absolute Auto 0.7 K/mm3 (0.1-0.6); Monocytes Percent Auto 10.2 % (2.6-8.5); Neutrophils Absolute Auto 5.7 K/mm3 (1.3-6.7); Neutrophils Percent Auto 78.2 % (45.5-73.1); Platelet Count Result 256 k/mm3 (150-375); Red Blood Count 3.66 M/mm3 (4.6-6.20); Red Cell Distribution Width 12.8 % (11.5-14.5); White Blood Count 7.3 K/mm3 (4.5-10.0)
[2020-01-13 07:22] LABS: Add Urine Microscopic? YES; Alanine Aminotransferase 83 U/L (4-50); Albumin Level 3.5 g/dL (3.5-5.1); Alkaline Phosphatase 163 U/L (38-126); Appearance Urine Cloudy (Clear); Aspartate Amino Transferase 58 U/L (17-59); Bacteria Urine 2+ /hpf; Bilirubin Urine Negative (Negative); Bilirubin,Total 0.6 mg/dL (0.2-1.3); Blood Urea Nitrogen 27 mg/dL (9-20); Blood Urine 2+ (Negative); Calcium 8.3 mg/dL (8.4-10.2); Carbon Dioxide 28 mmol/L (22-30); Chloride 94 mmol/L (98-107); Color Urine Red (Yellow); Estimated CRCL calculation 59 ml/min; Estimated Glomerular Filt Rate > 60; Glucose 105 mg/dL (75-110); Glucose Urine UA Negative (Negative); Ketones Urine Negative (Negative); Leukocyte Esterase Ur 2+ LEU/UL (Negative); Mucus Urine Few /lpf; Nitrate Urine Negative (Negative); Potassium 3.1 mmol/L (3.4-5.0); Protein Urine 2+ mg/dL (Negative); RBC Urine >75 /hpf (0-2); Sodium 131 mmol/L (137-145); Specific Grav Ur 1.019 (1.001-1.035); WBC Urine >75 /hpf
[2020-01-13 07:27] LABS: INR 1.1; Prothrombin Time 14.3 Seconds (11.1-14.7)
[2020-01-13 07:29] LABS: Partial Thromboplastin Time 48.4 SECONDS (22.3-36.8)
[2020-01-13] MEDS: LACTATED RINGERS 1,000 ML 999 ML IV CONT (07:47)
--- NOTE | 2020-01-13 08:09 | PC.NURSE ---
Catheter flushed with 500 ml normal saline. Return of 1 small clot and then urine cleared.
--- NOTE | 2020-01-13 10:16 | PC.NURSE ---
UROLOGY PA IN TO SEE PT.
--- NOTE | 2020-01-13 14:06 | WPDURCON ---
Assessment and Plan Assessment and plan (1) Gross hematuria: Code(s): R31.0 - Gross hematuria Status: Acute Assessment and Plan: Mcclelland was irrigated easily and urine was cleared. Keep mcclelland in, push fluids. Patient will continue Ciprofloxacin and tailor to culture results. Patient should follow up with Dr. Self next week for further evaluation. 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 He was recently hospitalized following a traumatic intermittent catheterization which resulted in a clot evacuation on 12/28/[address] Vieyra. He has an atonic bladder and routinely catheterizes. He called the office yesterday and was sent for a urine culture at [facility] and started Ciprofloxacin, however overnight his hematuria in his mcclelland has gotten worse. He has had his current mcclelland in for two weeks. He denies fever, chills, nausea, vomiting, flank pain or abdominal pain. CT scan abdomen/pelvis indicated bladder wall thickening and likely cystitis/UTI. Creatinine and WBC are both stable. Review of Systems Cardiovascular: Cardiovascular: Denies chest pain Respiratory: Respiratory: Reports no additional respiratory complaints Gastrointestinal: Gastrointestinal: Denies abdominal pain, Denies nausea and Denies vomiting Genitourinary: Genitourinary: Reports hematuria and Reports other (urinary retention) [facility] Past Medical History Medical History Elevated blood pressure reading Enlarged prostate Hypertension Urinary retention Patient straight caths 3 times per day. Surgical History Surgical History Status post arthroscopy of left knee Status post biopsy of skin Family History Family History Mother Hypertension Diabetes mellitus Sibling Breast cancer Father Heart failure Social History Social History (Reviewed 01/13/20 @ 14:12 by ZO Fernandez Social History: Markie lives in [place]. His 96-year-old mother lives at home with him. 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 He will drink a 12 pack of beer every other weekend. No drug use. Smoking packs per day: 0.5 Smoking cigarettes per day: 10.0 Years smoked: 45 Smoking pack-years: 22.50 Smoking status: Current every day smoker Tobacco type: cigarettes Additional smoking assessment comments: patient has not smoked for 4 days Alcohol intake: former Drinks per week: 12 Substance use: never Gender identity (if verbalized by the patient): Male Spiritual care concerns: No Agree to blood products: Yes Meds Home Medications and Allergies Home Medications Medication Instructions Recorded Confirmed Type finasteride 5 mg PO DAILY #30 tablet 11/30/19 12/25/19 Rx tamsulosin [Flomax] 0.4 mg PO HS #30 cap 11/30/19 12/25/19 Rx amlodipine 2.5 mg tablet 2.5 mg PO QAM #30 tablet 12/27/19 Rx ciprofloxacin HCl [Cipro] 01/13/20 History Allergies Allergy/AdvReac Type Severity Reaction Status Date / Time No Known Allergies Allergy Verified 01/13/20 06:40 Vital Signs Vital Signs - 24 hr 01/13/20 06:23 Temperature 98.3 F Pulse Rate 93 Respiratory Rate 16 Blood Pressure 110/68 Pulse Oximetry 98 Exam Resp: Effort & Inspection: normal respiratory effort Cardio: Rate: regular rate GI: GI Palp: No Tenderness to palp
== END 2020-01-13 12:16 | disposition home or self-care (01) ==
PROVIDERS: Emergency Provider General Practice; PCP Internal Medicine
DX: N30.01 Acute cystitis with hematuria (principal); N40.0 Benign prostatic hyperplasia without lower urinary tract symptoms; I10 Essential (primary) hypertension; F17.210 Nicotine dependence, cigarettes, uncomplicated; N28.1 Cyst of kidney, acquired; K76.9 Liver disease, unspecified; D73.89 Other diseases of spleen
CPT/HCPCS: 36415; 74177; 80053; 81001; 85025; 85610; 85730; 87077; 87086; 87088; 87186; 96361; 96365; 99284; J0696; J7120; Q9967

== ENCOUNTER 2021-01-18 14:34 | Outpatient (CLI) | payer OTHER, SELFPAY | END 2021-01-18 14:35 | disposition home or self-care (01) | LOC: ANHCOVIDVC 14:35 | PROVIDERS: PCP Internal Medicine | DX: Z23 Encounter for immunization (principal) | CPT/HCPCS: 0001A; 91300 ==

== ENCOUNTER 2021-02-08 14:29 | Outpatient (CLI) | payer OTHER, SELFPAY | END 2021-02-08 14:30 | disposition home or self-care (01) | LOC: ANHCOVIDVC 14:30 | PROVIDERS: PCP Internal Medicine | DX: Z23 Encounter for immunization (principal) | CPT/HCPCS: 0002A; 91300 ==

== ENCOUNTER 2022-07-22 08:39 | Outpatient (CLI) | payer SELFPAY ==
[2022-07-22 19:42] LABS: Alanine Aminotransferase 21 U/L (6-50); Albumin Level 4.4 g/dL (3.5-5.1); Alkaline Phosphatase 63 U/L (38-126); Anion Gap 9 mmol/L (8-16); Aspartate Amino Transferase 41 U/L (17-59); Bilirubin,Total 0.4 mg/dL (0.2-1.3); Blood Urea Nitrogen 16 mg/dL (9-20); Calcium 9.1 mg/dL (8.4-10.2); Carbon Dioxide 27 mmol/L (22-30); Chloride 103 mmol/L (98-107); Cholesterol 161 mg/dL (0-200); Estimated Glomerular Filt Rate > 60; Glucose 90 mg/dL (65-110); HDL Direct 37 mg/dL; Sodium 139 mmol/L (137-145); Triglycerides 110 mg/dL (<150)
[2022-07-22 19:53] LABS: LDL Cholesterol Direct 94 mg/dL
[2022-07-22 21:37] LABS: Hemoglobin A1C 5.4 % (<5.7)
== END 2022-07-22 08:40 | disposition home or self-care (01) ==
LOC: ANHGOSHLAB 08:40
PROVIDERS: PCP Family Medicine; Visit Provider Family Medicine
DX: R73.01 Impaired fasting glucose (principal); E78.5 Hyperlipidemia, unspecified; I10 Essential (primary) hypertension
CPT/HCPCS: 36415; 80053; 80061; 83036

== ENCOUNTER 2023-07-21 08:57 | Outpatient (CLI) | payer MEDICARE, SELFPAY ==
[2023-07-21 17:05] LABS: Alanine Aminotransferase 19 U/L (6-50); Albumin Level 4.2 g/dL (3.5-5.1); Alkaline Phosphatase 66 U/L (38-126); Anion Gap 7 mmol/L (8-16); Aspartate Amino Transferase 24 U/L (17-59); Bilirubin,Total 0.6 mg/dL (0.2-1.3); Blood Urea Nitrogen 15 mg/dL (9-20); Calcium 8.8 mg/dL (8.4-10.2); Carbon Dioxide 31 mmol/L (22-30); Chloride 102 mmol/L (98-107); Cholesterol 181 mg/dL (0-200); Estimated Glomerular Filt Rate > 60; Glucose 101 mg/dL (65-110); HDL Direct 34 mg/dL; Potassium 4.2 mmol/L (3.4-5.0); Sodium 140 mmol/L (137-145); Triglycerides 103 mg/dL (<150)
[2023-07-21 17:20] LABS: LDL Cholesterol Direct 112 mg/dL
== END 2023-07-21 08:58 | disposition home or self-care (01) ==
PROVIDERS: PCP Family Medicine; Visit Provider Family Medicine
DX: E78.5 Hyperlipidemia, unspecified (principal); Z13.228 Encounter for screening for other metabolic disorders
CPT/HCPCS: 36415; 80053; 80061

== ENCOUNTER 2023-08-05 08:44 | Outpatient (CLI) | payer MEDICARE, SELFPAY ==
--- NOTE | 2023-08-06 13:44 | WPDSLEEPSTUD ---
Sleep Study Date of Study: 08/05/23 Ordering Provider: Dg Santos DO Interpreting Physician: Jacey Kemp MD Sleep Study Type: Split Polysomnogram Height: 1.7 m Weight: 95.254 kg Body Mass Index: 32.8 Neck Circumference (inches): 17.5 Stewart: 5 Reason for Sleep Study Waking during the night, sleepy in the day Sleep History Markie Murdock is a 63-year-old man who had a split night sleep for problems related to waking during the night and excessive sleepiness in the day. There is a family history of sleep conditions, as his brother has been diangsed with a sleep problem. He constantly awakens from sleep feeling short of breath. He never has heartburn, belching or coughing at night. He frequently snores, rarely loudly enough that others complain about it. He constantly has difficulty sleeping with a cold. He constantly gasps for breath at night. He never sweats excessively at night or in notices his heart pounding or beating irregularly at night. He constantly falls asleep during the day, frequently involuntarily however never falls asleep while driving. He does not have loss of muscle tone with strong emotion. 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 He does not feel paralyzed on waking or falling asleep. He does not have vivid dreamlike scenes upon awakening or falling asleep. He does not feel afraid to go to sleep. He does not have nightmares. He does not remembers dreams. He constantly has racing thoughts. He rarely feels sad or depressed. He frequently has anxiety. He does not have muscular tension. He frequently notices parts of his body jerking and he frequently kicks at night. He does not have crawling or aching feelings in his legs or any kind of leg pain at night. He does not grind his teeth or have jaw pain in the morning. He does not have pain during the day and he is not awakened by pain at night. He does not wake up in the morning feeling stiff, does not wake up with sore or achy muscles, does not wake up with pain in the neck and spine. He takes antacids regularly. Normal bedtime is 10:00 p.m. falling asleep within an hour. He typically wakes up between 4 and 5 times during the night for unclear reasons. It may take him an 1/2 hour to return to sleep. He wakes the morning at 6:00 a.m.. He estimates getting 4 hours of sleep at night. He takes naps in the afternoon or evening. A short nap is not refreshing. He is drowsy for an hour after waking. He feels better in the morning compared to other times of day. Habits: Tobacco: Quit years ago. Caffeine: daily. Alcohol: 1-2 per day. Recreational substances: none. [facility] Past Medical History Medical History (Updated 08/06/23 @ 14:52 by Jacey Kemp MD) Enlarged prostate Hyperlipidemia Hypertension Surgical History Surgical History Status post arthroscopy of left knee Status post biopsy of skin Family History Family History Mother Hypertension Diabetes mellitus Sibling Breast cancer Father Heart failure Social History Social History Smoking packs per day: 0.5 Smoking cigarettes per day: 10.0 Years smoked: 45 Smoking pack-years: 22.50 Smoking status: Former smoker Tobacco type: cigarettes Alcohol intake: former Drinks per week: 12 Substance use: never Lack of Transportation: No Lack of Food: Never True Current Housing: I Have Housing Concerned About Future Housing: No Difficulty Paying Gas/Electric Bills: No Difficulty Paying for Meds: No Currently Unemployed: YES Education: High School Diploma/GED Difficulty w/ Childcare or Family Care: No Gender identity (if verbalized by the patient): Male Spiritual care concerns: No Agree to blood products: Yes Medication
[2023-08-06 14:54] VITALS: BMI 32.8
== END 2023-08-06 06:51 | disposition home or self-care (01) ==
LOC: ANHCSM 08:45
PROVIDERS: PCP Family Medicine; Visit Provider Family Medicine
DX: G47.33 Obstructive sleep apnea (adult) (pediatric) (principal); G47.39 Other sleep apnea
CPT/HCPCS: 95811

== ENCOUNTER 2023-08-07 08:49 | Outpatient (CLI) | payer MEDICARE, SELFPAY ==
--- NOTE | ~2023-08-07 | US_ITS ---
EXAMINATION: US aorta [employer] DATE: 08/07/2023 09:50 INDICATION: Abdominal aortic aneurysm screening TECHNIQUE: Grayscale, color Doppler, and pulsed Doppler images of the aorta and common iliac arteries were obtained. COMPARISON: None. FINDINGS: The proximal aorta measures 2.2 cm. The mid aorta measures 1.9 cm. The distal aorta measures 1.7 cm. The right common iliac artery measures 1.2 cm. The left common iliac artery measures 1.2 cm. IMPRESSION: 1. Normal caliber abdominal aorta. Reviewed, dictated and finalized at location [facility].
--- NOTE | ~2023-08-07 | CT_ITS ---
CT Scan of the Chest without Contrast: Clinical Indication: Lung cancer screening, personal history of nicotine dependence Technique: Contiguous sections were acquired throughout the chest without intravenous contrast. Dose reduction technique was used on this scan by utilizing automated exposure control and iterative recon struction technique. The dose-length product (DLP) was 184.46 mGy-cm. Findings: There is no evidence of any significant mediastinal, hilar or axillary lymphadenopathy. The mediastin al soft tissues appear normal. There is no evidence of pleural or pericardial effusion. 3 mm right lower lobe pulmonary nodule present (axial image 82). Small calcified left apical granulom a present. Images through the upper abdomen reveal no abnormalities. Impression: Lung RADS 2: Benign appearance. 12 month follow-up screening CT advised. Reviewed, dictated and finalized at location . Impression: Lung RADS 2: Benign appearance. 12 month follow-up screening CT advised.
== END 2023-08-07 08:50 | disposition home or self-care (01) ==
PROVIDERS: PCP Family Medicine; Visit Provider Family Medicine
DX: Z12.2 Encounter for screening for malignant neoplasm of respiratory organs (principal); Z87.891 Personal history of nicotine dependence; Z13.6 Encounter for screening for cardiovascular disorders
CPT/HCPCS: 71271; 76706

== ENCOUNTER 2024-01-25 12:02 | Outpatient (CLI) | payer MEDICARE, SELFPAY ==
--- NOTE | ~2024-01-25 | XR_ITS ---
EXAMINATION: XR lumbar spine min 4V DATE: 01/25/2024 12:27 INDICATION: Low back pain with sciatica TECHNIQUE: Anteroposterior, lateral, and bilateral oblique views of the lumbar spine, and cone-down l ateral view of the lumbosacral junction were obtained. COMPARISON: CT, 01/13/2020 FINDINGS: There are 3 mm of retrolisthesis of L4 on L5. The vertebral body heights are maintained. Th ere is moderate loss of intervertebral disc space height at L4-5 and mild loss of disc space height a t L5-S1. Small degenerative osteophytes project from the anterior endplates of multiple vertebral bod ies. There is moderate facet joint osteoarthritis throughout the lumbar spine. No fracture is identif ied. IMPRESSION: 1. Moderate lumbar spondylosis without acute findings. Reviewed, dictated and finalized at location F.
== END 2024-01-25 12:03 ==
LOC: GOSHIMG 12:04
PROVIDERS: PCP Family Medicine; Visit Provider Family Medicine
DX: M54.40 Lumbago with sciatica, unspecified side (principal); M47.896 Other spondylosis, lumbar region
CPT/HCPCS: 72110

== ENCOUNTER 2024-02-07 10:01 | Emergency (ER) | payer MEDICARE, SELFPAY ==
--- NOTE | ~2024-02-07 | CT_ITS ---
EXAMINATION: CT abdomen pelvis w con DATE: 02/07/2024 12:40 INDICATION: Right flank pain, right upper quadrant abdominal pain. TECHNIQUE: Computed tomography (CT) of the abdomen and pelvis was performed with 100 CC Omnipaque 350 intravenous contrast. Automated exposure control and iterative reconstruction technique were employe d. Exam dose: 560.50 mGy-cm total exam DLP. COMPARISON: 01/13/2020 CT abdomen pelvis is not currently available from PACS FINDINGS: Minimal discoid atelectasis or scarring at the lung bases. Heart size is within normal rang e. No pericardial or pleural effusion. Small sliding hiatal hernia. Right hepatic hypoattenuating lesion with interrupted peripheral enhancement consistent with hemangio ma. Spleen measures 11.5 cm vertical dimension. Nonspecific approximately 1.4 cm hypoattenuating posterio r splenic lesion. The gallbladder is present and appears unremarkable. No bile duct or pancreatic duct dilatation. No p ancreatic mass lesion or calcification. Normal morphology of the adrenal glands. Occasional bilateral renal cysts, largest on the left, measuring up to 2.5 cm approximate maximal dim ension. No urinary tract calculus or hydroureteronephrosis. There is prostate enlargement, impressing the bas e of the urinary bladder. The urinary bladder is otherwise unremarkable. Small bilateral fat-containing inguinal hernias. Normal caliber of the abdominal aorta. No intraperitoneal or retroperitoneal or pelvic mass lesion or adenopathy or ascites. No evidence of appendicitis. There is a prominent amount fecal material in the colon but no bowel obs truction, bowel wall thickening, pneumatosis or intraperitoneal free air. Moderate degenerative changes of the thoracic and lumbar spine. IMPRESSION: Hepatic hemangioma Bilateral renal cysts Small sliding hiatal hernia Reviewed, dictated and finalized at [facility]. Reviewed, dictated and finalized at location A.
[2024-02-07 10:10] VITALS: BP 155/78; PULSE 61; RESP 15; TEMP 36.3; O2SAT 99
--- NOTE | 2024-02-07 11:15 | PC.NURSE ---
SEE DOWNTIME CHARTING
[2024-02-07 12:24] LABS: Appearance Urine Clear (Clear); Bilirubin Urine Negative (Negative); Blood Urine Negative (Negative); Color Urine Yellow (Yellow); Glucose Urine UA Negative (Negative); Ketones Urine Negative (Negative); Leukocyte Esterase Ur Negative LEU/UL (Negative); Nitrate Urine Negative (Negative); Protein Urine Negative (Negative); Urobilinogen Urine 0.2 mg/dL (<2.0)
[2024-02-07 12:34] LABS: Specific Grav Ur 1.003 (1.001-1.035)
[2024-02-07 12:35] LABS: Add Urine Microscopic? NO
[2024-02-07 12:36] LABS: Alanine Aminotransferase 12 U/L (6-50); Albumin Level 4.2 g/dL (3.5-5.1); Alkaline Phosphatase 60 U/L (38-126); Anion Gap 6 mmol/L (4-12); Aspartate Amino Transferase 18 U/L (17-59); Bilirubin,Total 0.8 mg/dL (0.2-1.3); Blood Urea Nitrogen 14 mg/dL (9-20); Calcium 9.1 mg/dL (8.4-10.2); Carbon Dioxide 27 mmol/L (22-30); Chloride 106 mmol/L (98-107); Estimated CRCL calculation 85 ml/min; Estimated Glomerular Filt Rate > 60; Glucose 97 mg/dL (65-110); Sodium 139 mmol/L (137-145)
--- NOTE | 2024-02-07 12:36 | PC.NURSE ---
SEE DOWNTIME CHARTING
--- NOTE | 2024-02-07 12:37 | PC.NURSE ---
PT TO CT SCAN VIA W/C AT THIS TIME
[2024-02-07 12:48] LABS: Basophils Percent Auto 0.4 % (0.2-1.2); Eosinophils Absolute Auto 0.1 K/mm3 (0-0.3); Eosinophils Percent Auto 1.8 % (0-4.4); Hematocrit 41.1 % (42.0-52.0); Hemoglobin 13.1 g/dL (14.0-18.0); Immature Granulocyte Absolute 0.01 K/mm3 (0.00-0.031); Immature Granulocyte Percent A 0.2 % (0-0.5); Lymphocytes Absolute Auto 0.93 K/mm3 (0.9-3.2); Lymphocytes Percent Auto 18.7 % (18.3-44.2); Mean Corpuscular HGB Conc 31.9 g/dl (32-36); Mean Corpuscular Hemoglobin 27.6 pg (26-34); Mean Corpuscular Volume 86.7 fl (80-100); Mean Platelet Volume 10.5 fl (7.4-10.4); Monocytes Absolute Auto 0.3 K/mm3 (0.1-0.6); Monocytes Percent Auto 6.2 % (2.6-8.5); Neutrophils Absolute Auto 3.6 K/mm3 (1.3-6.7); Neutrophils Percent Auto 72.7 % (45.5-73.1); Platelet Count Result 199 k/mm3 (150-375); Red Blood Count 4.74 M/mm3 (4.6-6.20); Red Cell Distribution Width 12.9 % (11.5-14.5)
[2024-02-07] MEDS: ACETAMINOPHEN 500 MG TABLET 1000 MG (12:52)
[2024-02-07] MEDS: methylPREDNISolone SOD SUCC 125 MG VIAL (12:53)
[2024-02-07] MEDS: KETOROLAC 30 MG/ML VIAL (*BKC) (12:55)
[2024-02-07 12:57] VITALS: BP 167/79; PULSE 85; RESP 19; O2SAT 98
== END 2024-02-07 13:40 | disposition home or self-care (01) ==
PROVIDERS: Emergency Provider Physician Assistant; PCP Family Medicine
DX: R10.9 Unspecified abdominal pain (principal); D18.09 Hemangioma of other sites; N28.9 Disorder of kidney and ureter, unspecified
CPT/HCPCS: 36415; 74177; 80053; 81003; 85025; 96372; 99284; A9270; J1885; J2919; Q9967

== ENCOUNTER 2024-02-20 12:35 | Outpatient (CLI) | payer MEDICARE, SELFPAY ==
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
--- NOTE | ~2024-02-20 | MR_ITS ---
EXAMINATION: MR lumbar spine wo con DATE: 02/20/2024 13:31 INDICATION: M54.16 - Radiculopathy, lumbar region . TECHNIQUE: Magnetic resonance imaging (MRI) of the lumbar spine was performed without intravenous con trast. Sequences included sagittal T2-weighted FSE, sagittal T2-weighted FS FSE, sagittal T1-weighted FSE, and axial T2-weighted FSE. COMPARISON: X-ray lumbar spine 01/25/2024; CT abdomen pelvis, 02/07/2024 FINDINGS: The last fully formed and hydrated disc is designated L5-S1. The marrow signal is benign an d homogenous. Conus terminates at L1-2. Multilevel loss of disc height and hydration. 3 mm retrolisth esis at L4-5. Right liver lobe hemangioma. Bilateral simple renal cysts. T11-T12: Mild diffuse bulge. There is no facet joint osteoarthritis. There is no neural foraminal sterling nosis. There is no central canal stenosis. T12-L1: The disc does not extend beyond the endplate margin. There is moderate bilateral facet joint osteoarthritis. There is no neural foraminal stenosis. There is no central canal stenosis. L1-L2: Mild diffuse bulge. There is moderate bilateral facet joint osteoarthritis. There is mild bila teral neural foraminal stenosis. There is mild central canal stenosis. L2-L3: Mild diffuse bulge. There is moderate bilateral facet joint osteoarthritis. There is mild bila teral neural foraminal stenosis. There is mild central canal stenosis. L3-L4: Moderate diffuse bulge. There is moderate bilateral facet joint osteoarthritis. Moderate ligam entum hypertrophy. There is moderate bilateral neural foraminal stenosis. There is moderate central c anal stenosis. L4-L5: 4 mm central extrusion extending along the posterior aspect of the L5 vertebral body with a 5 mm sequestered fragment. Moderate ligamentum flavum hypertrophy. There is moderate bilateral facet florence int osteoarthritis. There is moderate bilateral neural foraminal stenosis. There is mild central angel l stenosis. L5-S1: Mild diffuse bulge with a broad-based 3 mm right paracentral protrusion. There is moderate pamela ateral facet joint osteoarthritis. There is moderate bilateral neural foraminal stenosis. There is no central canal stenosis. IMPRESSION: Grade 1 retrolisthesis at L4-5. Central L4-5 disc protrusion with a sequestered disc fragment contributing to mild central canal sten osis. Moderate central canal stenosis at L3-4 secondary to degenerative disc, facet, and ligamentum changes . Multilevel moderate bilateral neural foraminal narrowing. Multilevel moderate degenerative disc disease. Multilevel moderate facet arthropathy. Reviewed, dictated and finalized at location K. IMPRESSION: Grade 1 retrolisthesis at L4-5. Central L4-5 disc protrusion with a sequestered disc fragment contributing to m ild central canal stenosis. Moderate central canal stenosis at L3-4 secondary to degenerative disc, facet, and ligamentum changes. Multilevel moderate bilateral neural foraminal narrowing. Multilevel moderate degenerative disc disease. Multilevel moderate facet arthropathy.
== END 2024-02-20 12:36 | disposition home or self-care (01) ==
PROVIDERS: PCP Family Medicine; Visit Provider Family Medicine
DX: M54.16 Radiculopathy, lumbar region (principal); R29.898 Other symptoms and signs involving the musculoskeletal system; M51.26 Other intervertebral disc displacement, lumbar region; M51.36 Other intervertebral disc degeneration, lumbar region; S80.251A Superficial foreign body, right knee, initial encounter; X58.XXXA Exposure to other specified factors, initial encounter
CPT/HCPCS: 72148; 73560

== ENCOUNTER 2024-04-19 10:53 | Outpatient (CLI) | payer MEDICARE, SELFPAY ==
[2024-04-19 12:58] LABS: Basophils Percent Auto 0.9 % (0.2-1.2); Eosinophils Absolute Auto 0.1 K/mm3 (0-0.3); Eosinophils Percent Auto 2.2 % (0-4.4); Hematocrit 42.1 % (42.0-52.0); Hemoglobin 13.5 g/dL (14.0-18.0); Immature Granulocyte Absolute 0.01 K/mm3 (0.00-0.031); Immature Granulocyte Percent A 0.2 % (0-0.5); Lymphocytes Absolute Auto 0.97 K/mm3 (0.9-3.2); Lymphocytes Percent Auto 21.5 % (18.3-44.2); Mean Corpuscular HGB Conc 32.1 g/dl (32-36); Mean Corpuscular Hemoglobin 28.3 pg (26-34); Mean Corpuscular Volume 88.3 fl (80-100); Monocytes Absolute Auto 0.5 K/mm3 (0.1-0.6); Neutrophils Absolute Auto 2.9 K/mm3 (1.3-6.7); Neutrophils Percent Auto 65.2 % (45.5-73.1); Platelet Count Result 205 k/mm3 (150-375); Red Blood Count 4.77 M/mm3 (4.6-6.20); Red Cell Distribution Width 13.2 % (11.5-14.5); White Blood Count 4.5 K/mm3 (4.5-10.0)
[2024-04-19 13:18] LABS: Alanine Aminotransferase 14 U/L (6-50); Albumin Level 4.4 g/dL (3.5-5.1); Alkaline Phosphatase 53 U/L (38-126); Anion Gap 7 mmol/L (4-12); Aspartate Amino Transferase 31 U/L (17-59); Bilirubin,Total 0.8 mg/dL (0.2-1.3); Blood Urea Nitrogen 15 mg/dL (9-20); Calcium 8.9 mg/dL (8.4-10.2); Carbon Dioxide 29 mmol/L (22-30); Chloride 105 mmol/L (98-107); Estimated Glomerular Filt Rate > 60; Glucose 96 mg/dL (65-110); Potassium 4.2 mmol/L (3.4-5.0); Sodium 141 mmol/L (137-145)
== END 2024-04-19 10:54 | disposition home or self-care (01) ==
LOC: ANHGOSHLAB 10:54
PROVIDERS: PCP Family Medicine; Visit Provider Family Medicine
DX: R53.83 Other fatigue (principal); Z13.228 Encounter for screening for other metabolic disorders
CPT/HCPCS: 36415; 80053; 85025

== ENCOUNTER 2024-04-28 13:15 | Outpatient (CLI) | payer MEDICARE, SELFPAY ==
--- NOTE | 2024-05-04 07:45 | WPDHOLTEREM ---
Holter/Event Monitor Holter/Event Monitor Date of procedure: 05/05/24 Holter/Event Procedure: 48 Hr Holter Monitor Indications: Syncope Conclusion: 1. 48 hour holter monitor on 04/28/24. 2. Underlying rhythm is sinus rhythm. HR range 37-132 bpm; average HR 53 bpm. HR at 37 bpm was at 23:03. 3. There are 99 premature supraventricular complexes and 4 supraventricular couplets. No supraventricular tachycardia. 4. There are 1,990 premature ventricular complexes, 3 ventricular couplets, 25 ventricular bigeminy and 15 ventricular trigeminy. No ventricular tachycardia. 5. No sinoatrial or atrioventricular blocks. No significant pauses greater than 2 seconds. 6. Patient reports symptoms of dizziness which demonstrate sinus rhythm, HR range 44-108 bpm with 1 episode with PVC's.
== END 2024-04-28 13:16 | disposition home or self-care (01) ==
LOC: ANHCARD 13:19
PROVIDERS: PCP Family Medicine; Visit Provider Family Medicine
DX: R55 Syncope and collapse (principal)
CPT/HCPCS: 93225; 93226

== ENCOUNTER 2024-05-10 12:48 | Outpatient (CLI) | payer MEDICARE, SELFPAY ==
--- NOTE | 2024-05-10 14:15 | NEURO_ITS ---
Impression: # Complains of numbness of lower extremities. Status post lower back surgery. # Normal motor/sensory Nerve Conduction Study. # Normal needle/EMG exam. # Clinical correlation recommended. Nerve Conduction Studies Anti Sensory Summary Table Stim Site NR Peak (ms) P-T Amp (?V) Site1 Site2 Delta-P (ms) Dist (cm) Josh (m/s) Left Sup Fibular Anti Sensory (Ant Lat Mall) 14 cm 3.3 14.3 14 cm Ant Lat Mall 3.3 16.0 48 Right Sup Fibular Anti Sensory (Ant Lat Mall) 14 cm 3.4 14.0 14 cm Ant Lat Mall 3.4 16.0 47 Left Sural Anti Sensory (Lat Mall) Calf 3.6 5.3 Calf Lat Mall 3.6 16.0 44 Right Sural Anti Sensory (Lat Mall) Calf 3.7 4.2 Calf Lat Mall 3.7 16.0 43 Motor Summary Table Stim Site NR Onset (ms) O-P Amp (mV) Site1 Site2 Delta-0 (ms) Dist (cm) Josh (m/s) Left Peroneal Motor (Vastus Med) Ankle 4.5 3.2 Popit Ankle 8.4 42.0 50 Popit 12.9 2.2 Right Peroneal Motor (Vastus Med) Ankle 4.3 4.1 Popit Ankle 8.9 42.0 47 Popit 13.2 3.3 Left Tibial Motor (Abd Anthony Brev) Ankle 4.7 4.2 Knee Ankle 8.8 41.0 47 Knee 13.5 4.1 Right Tibial Motor (Abd Anthony Brev) Ankle 4.5 6.6 Knee Ankle 8.5 41.0 48 Knee 13.0 3.6 F Wave Studies NR F-Lat (ms) L-R F-Lat (ms) Left Peroneal (Mrkrs) (EDB) 49.77 0.28 Right Peroneal (Mrkrs) (EDB) 49.49 0.28 Left Tibial (Mrkrs) (Abd Hallucis) 50.11 1.05 Right Tibial (Mrkrs) (Abd Hallucis) 49.06 1.05 EMG Side Muscle Nerve Root Ins Act Fibs Amp Dur Recrt Comment Right AntTibialis Dp Br Fibular L4-5 Nml Nml Nml Nml Nml Right Gastroc Tibial S1-2 Nml Nml Nml Nml Nml Right Fibularis Long Sup Br Fibular L5-S1 Nml Nml Nml Nml Nml Right Flex Dig Long Tibial L5-S2 Nml Nml Nml Nml Nml Right Ext Dig Brev Dp Br Fibular L5, S1 Nml Nml Nml Nml Nml Left AntTibialis Dp Br Fibular L4-5 Nml Nml Nml Nml Nml Left Gastroc Tibial S1-2 Nml Nml Nml Nml Nml Left Fibularis Long Sup Br Fibular L5-S1 Nml Nml Nml Nml Nml Left Flex Dig Long Tibial L5-S2 Nml Nml Nml Nml Nml Left Ext Dig Brev Dp Br Fibular L5, S1 Nml Nml Nml Nml Nml Right QuadratusFem QuadFemoris L4-5, S1 Nml Nml Nml Nml Nml Left QuadratusFem QuadFemoris L4-5, S1 Nml Nml Nml Nml Nml MTDD
== END 2024-05-10 12:49 | disposition home or self-care (01) ==
PROVIDERS: PCP Family Medicine; Visit Provider Neurological Surgery
DX: R20.2 Paresthesia of skin (principal); Z98.1 Arthrodesis status
CPT/HCPCS: 95886; 95910

== ENCOUNTER 2024-05-31 09:28 | Outpatient (CLI) | payer MEDICARE, SELFPAY ==
--- NOTE | 2024-05-31 09:45 | EST_ITS ---
Patient Info Name: Markie Murdock Age: 64 years : 1960 Gender: Male Ht: 67 in Wt: 188 lbs BSA: 2.03 m2 HR: 46 bpm BP: 148 / 77 mmHg Heart Rhythm: Sinus Rhythm Exam Date: 05/31/2024 11:09 AM Exam Location: Echo Lab Patient Status: Outpatient Admit Date: 05/31/2024 Staff Ordering Physician: Dg Santos DO Attending Provider: Dg Santos DO Exercise Technologist: Ewa Su CT Exercise Physician: Delvis Samuel DO Exam Type: CA stress test treadmill Study Info Indications R55 - Syncope and collapse A treadmill exercise stress test was performed. Summary 1. 1. Negative Kvng exercise stress test for ischemic ST changes by ECG criteria. 2. 2. Good functional capacity, achieving 10 METs of workload. 3. 3. Baseline hypertension with hypertensive response to exercise. 4. 4. Appropriate HR response to exercise. 5. 5. Appropriate HR recovery at 1 minute post exercise. 6. 6. No imaging with stress testing. 7. 7. Patient informed of the above results. Protocol: Kvng Stress ECG Details Stage: REST Duration (min): 0 min : 59 sec Speed (mph): 0.0 Grade (%): 0 HR (bpm): 44 SBP (mmHg): 148 DBP (mmHg): 77 METS: --- Stage: REST Duration (min): 6 min : 14 sec Speed (mph): 0.0 Grade (%): 0 HR (bpm): 47 SBP (mmHg): 148 DBP (mmHg): 77 METS: --- Stage: STAGE 1 Duration (min): 1 min : 0 sec Speed (mph): 1.7 Grade (%): 10 HR (bpm): 72 SBP (mmHg): 148 DBP (mmHg): 77 METS: --- Stage: STAGE 1 Duration (min): 2 min : 0 sec Speed (mph): 1.7 Grade (%): 10 HR (bpm): 77 SBP (mmHg): 148 DBP (mmHg): 77 METS: --- Stage: STAGE 1 Duration (min): 3 min : 0 sec Speed (mph): 1.7 Grade (%): 10 HR (bpm): 81 SBP (mmHg): 202 DBP (mmHg): 49 METS: --- Stage: STAGE 2 Duration (min): 1 min : 0 sec Speed (mph): 2.5 Grade (%): 12 HR (bpm): 88 SBP (mmHg): 202 DBP (mmHg): 49 METS: --- Stage: STAGE 2 Duration (min): 2 min : 0 sec Speed (mph): 2.5 Grade (%): 12 HR (bpm): 97 SBP (mmHg): 198 DBP (mmHg): 50 METS: --- Stage: STAGE 2 Duration (min): 3 min : 0 sec Speed (mph): 2.5 Grade (%): 12 HR (bpm): 96 SBP (mmHg): 198 DBP (mmHg): 50 METS: --- Stage: STAGE 3 Duration (min): 1 min : 0 sec Speed (mph): 3.4 Grade (%): 14 HR (bpm): 104 SBP (mmHg): 199 DBP (mmHg): 60 METS: --- Stage: STAGE 3 Duration (min): 2 min : 0 sec Speed (mph): 3.4 Grade (%): 14 HR (bpm): 118 SBP (mmHg): 199 DBP (mmHg): 60 METS: --- Stage: STAGE 3 Duration (min): 3 min : 0 sec Speed (mph): 3.4 Grade (%): 14 HR (bpm): 126 SBP (mmHg): 219 DBP (mmHg): 80 METS: --- Stage: STAGE 4 Duration (min): 0 min : 9 sec Speed (mph): 4.2 Grade (%): 16 HR (bpm): 126 SBP (mmHg): 219 DBP (mmHg): 80 METS: --- Stage: RECOVERY Duration (min): 0 min : 50 sec Speed (mph): 0.0 Grade (%): 0 HR
--- NOTE | 2024-05-31 09:45 | ECHO_ITS ---
Patient Info Name: Markie Murdock Age: 64 years : 1960 Gender: Male Ht: 67 in Wt: 188 lbs BSA: 2.03 m2 HR: 50 bpm BP: 158 / 82 mmHg Technical Quality: Good Exam Date: 05/31/2024 9:58 AM Exam Location: Echo Lab Patient Status: Outpatient Admit Date: 05/31/2024 Staff Ordering Physician: Dg Santos DO Demonstrator [employer]: Penelope Garcia RDCS Attending Provider: Dg Santos DO Referring Physician: Tom FINE; Exam Type: CA echo doppler color flow Study Info Indications R55 - Syncope and collapse Complete two-dimensional, color flow and Doppler transthoracic echocardiogram is performed. Strain analysis performed. Summary 1. Complete two-dimensional, color flow and Doppler transthoracic echocardiogram is performed. 2. Left ventricular chamber dimension is normal. 3. Left ventricular systolic function is normal, estimated at 60-65%. 4. The left ventricular diastolic function is grade I diastolic dysfunction. 5. Global longitudinal strain is normal at -17.4%. 6. Left atrial chamber dimension is moderately enlarged. 7. There is mild to moderate mitral valve regurgitation. 8. There is trace tricuspid valve regurgitation. 9. No pulmonary hypertension, estimated pulmonary arterial systolic pressure is 26 mmHg. Left Ventricle Global longitudinal strain is normal at -17.4%. Tissue doppler is not performed. Left ventricular chamber dimension is normal. Left ventricular systolic function is normal, estimated at 60-65%. The left ventricular diastolic function is grade I diastolic dysfunction. Right Ventricle Right ventricular systolic function is normal and with normal TAPSE 2.8 cm. Right ventricular chamber dimension is normal. Left Atria Left atrial chamber dimension is moderately enlarged. Right Atria Right atrial chamber dimension is normal. Aortic Valve The aortic valve is trileaflet. There is no aortic valve stenosis. There is no aortic valve regurgitation. Pulmonic Valve There is no pulmonic regurgitation. Mitral Valve There is no mitral valve stenosis. There is mild to moderate mitral valve regurgitation. Tricuspid Valve There is trace tricuspid valve regurgitation. No pulmonary hypertension, estimated pulmonary arterial systolic pressure is 26 mmHg. Pericardium/Pleural There is no pericardial effusion. Inferior Vena Cava Normal inferior vena cava with >50% collapse upon inspiration consistent with normal right atrial pressure, 5 mmHg. Aorta The aortic root size at the sinus of Valsalva is normal. Left Ventricular Outflow Tract Name Value Normal LVOT 2D LVOT Diameter 2.0 cm LVOT Doppler LVOT Peak Gradient 4 mmHg LVOT Mean Gradient 2 mmHg LVOT VTI 22 cm LVOT VTI/AV VTI Ratio 0.8 LVOT Stroke Volume 70 ml LVOT CO 3.2 l/min LVOT CI 1.6 l/min/m2 Pulmonic Valve Name Value Normal
== END 2024-05-31 09:29 | disposition home or self-care (01) ==
PROVIDERS: PCP Family Medicine; Visit Provider Family Medicine
DX: R55 Syncope and collapse (principal); I10 Essential (primary) hypertension; I35.1 Nonrheumatic aortic (valve) insufficiency
CPT/HCPCS: 93017; 93306

== ENCOUNTER 2024-06-17 06:25 | Outpatient (CLI) | payer MEDICARE, SELFPAY ==
[2024-06-10 15:54] VITALS: BMI 29.7
--- NOTE | 2024-06-10 15:57 | PC.NURSE ---
Pre Radiology instructions Report to the outpatient paul[facility] x[facility] on date __06/17/24___ at time __7:00AM for procedure Time: _9:00AM___ YOU MAY BE MONITORED AT HOSPITAL FOR UP TO 4 HOURS AFTER YOUR PROCEDURE. A visitor will be allowed to accompany the patient into the hospital. You and your visitor will be asked to self-screen and do not enter if you have any COVID symptoms. A mask is OPTIONAL within the hospital. Patients are to have no food or drink 6 hours prior to procedure time Driving will be restricted after the procedure, you must have a person to drive you home. Labs will be drawn in preop area and once reviewed, you will be taken to radiology area for procedure. When the procedure is completed, you will be taken to outpatient where you will be monitored for several hours. You may have one visitor in this area. Other than holding anti-coagulants, patient may take other medication(s) as scheduled. Prior to your appointment date patients are instructed to hold anti-coagulants after discussing with ordering provider to stop. If unable to discontinue anti-coagulants please notify radiologist. ? No aspirin or warfarin (Coumadin) for 7 days prior to the procedure. ? No clopidogrel (Plavix), ticagrelor (Brilinta), prasugrel (Effient) or dabigatran (Pradaxa) for 5 days prior to the procedure. ? No rivaroxaban (Xarelto), apixaban (Eliquis), dipyridamole (Aggrenox or Persantine) or cilostazol (Pletal) for 2 days prior to the procedure. Medications to discontinue per physician: __NONE Date to take last dose: Please leave all valuables, including medications, at home the day of procedure. The hospital will not accept responsibility for valuables. Wear comfortable, loose fitting clothing.? Follow any additional instructions given to you from ordering provider. Telephone instructions given to ____PATIENT and asked if any additional questions and then verbalized understanding. Patient advised to call scheduling provider office or registration scheduling [phone] if any additional questions.
[2024-06-17] VITALS (8 sets, daily range): BP systolic 137–156; BP diastolic 49–73; PULSE 41–57; RESP 14–16; TEMP 36.1; O2SAT 93–98; BMI 27.6
--- NOTE | ~2024-06-17 | XR_ITS ---
EXAMINATION: 1. CT lumbar spine w con 2. XR myelogram spine lumbosacral DATE: 06/17/2024 08:50 INDICATION: Low back pain, unspecified. TECHNIQUE: The procedure including the risks, benefits, and alternatives was discussed with the patie nt. Risks discussed included spinal headache, bleeding, and infection. The patient understood the ris ks and agreed to proceed. A timeout was performed to verify the patient's name, date of , and procedure to be performed. The skin overlying the L4-L5 level was prepped and draped in usual steri le fashion. Subcutaneous 1% lidocaine was used for local anesthesia. A 22 gauge spinal needle was a dvanced under fluoroscopic guidance. 17 mL Omnipaque 180 was injected into the thecal sac. The needle was removed and the entry site was cleaned and dressed. There were no immediate complications. Fluo roscopy exposure time was 0.2 minutes. The total number of images was 7. Computed tomography (CT) of the lumbar spine was performed without intravenous contrast. Automated exposure control and iterative reconstruction technique were employed. The dose-length product was 455.64 mGy-cm. COMPARISON: Lumbar spine MRI 02/20/2024 FINDINGS: LUMBAR MYELOGRAM: There is indentation of the thecal sac at multiple levels that will be further desc ribed on the postmyelogram CT. POST MYELOGRAM LUMBAR SPINE CT:There is 3 degrees levocurvature of lumbar spine. There is 3 mm retrol isthesis of L4 on L5. Vertebral body heights are normal. There is mildly decreased disc height at L1- L2 and L3-L4 and moderately decreased disc height at L4-L5 and L5-S1. The distal spinal cord morpholo gy is normal. The conus medullaris is at L1-L2. The following disc levels are specifically discussed: L1-L2: The disc is bulging. There is moderate right and severe left facet joint osteoarthritis. There is mild bilateral neural foraminal stenosis. There is mild central canal stenosis. L2-L3: The disc is bulging. There is moderate bilateral facet joint osteoarthritis. There is mild pamela ateral neural foraminal stenosis. There is no central canal stenosis. L3-L4: The disc is bulging. There is severe bilateral facet joint osteoarthritis. There is mild bilat eral neural foraminal stenosis. There is mild central canal stenosis. L4-L5: The disc is bulging with superimposed central extrusion. There is severe bilateral facet joint osteoarthritis. There is moderate bilateral neural foraminal stenosis. There is mild central canal s tenosis. L5-S1: The disc is bulging. There is severe bilateral facet joint osteoarthritis. There is moderate b ilateral neural foraminal stenosis. There is mild central canal stenosis. IMPRESSION: 1. Moderate lumbar spondylosis, stable from 02/20/2024. Reviewed, dictated and finalized at location A. IMPRESSION: 1. Moderate lumbar spondylosis, stable from 02/20/2024.
[2024-06-17 07:41] LABS: Mean Platelet Volume 10.3 fl (7.4-10.4); Platelet Count Result 183 k/mm3 (150-375)
[2024-06-17 07:53] LABS: Prothrombin Time 13.7 Seconds (11.1-14.7)
--- NOTE | 2024-06-17 10:53 | SUR.PHASEII ---
Patient meets criteria for discharge. Vitals are stable. He is getting dressed and waiting for daughter to him pick-up.
== END 2024-06-17 11:02 | disposition home or self-care (01) ==
PROVIDERS: PCP Family Medicine; Referring Provider Neurological Surgery; Visit Provider Radiology Diagnostic Radiology
DX: M54.50 Low back pain, unspecified (principal); M47.816 Spondylosis without myelopathy or radiculopathy, lumbar region
CPT/HCPCS: 36415; 62304; 72132; 85049; 85610; Q9965

== ENCOUNTER 2024-08-04 12:35 | Outpatient (CLI) | payer MEDICARE, SELFPAY ==
--- NOTE | ~2024-08-04 | MR_ITS ---
EXAMINATION: MR cervical spine wo/w con DATE: 08/04/2024 14:34 INDICATION: Radiculopathy. Left leg burning sensation. TECHNIQUE: Magnetic resonance imaging (MRI) of the cervical spine was performed without and with 17 m L MultiHance intravenous contrast. COMPARISON: None FINDINGS: There is 4 mm retrolisthesis of C6 on C7. There is fusion of C1 and C2. There is severely d ecreased disc height at C6-C7. There is increased T2-weighted signal intensity in the spinal cord at C6-C7 centered at the donis matter, consistent with myelomalacia. The following disc levels are specif ically discussed: C2-C3: The disc does not extend beyond the endplate margin. There is mild bilateral uncovertebral xena nt osteoarthritis. There is severe bilateral facet joint osteoarthritis. There is mild left neural fo raminal stenosis. There is no central canal stenosis. C3-C4: The disc is bulging. There is mild right and moderate left uncovertebral joint osteoarthritis. There is moderate right and severe left facet joint osteoarthritis. There is mild right and moderate left neural foraminal stenosis. There is mild central canal stenosis with ventral indentation of the spinal cord. C4-C5: The disc is bulging. There is mild bilateral uncovertebral joint osteoarthritis. There is mild right and severe left facet joint osteoarthritis. There is mild right and moderate left neural jesus manuel inal stenosis. There is mild central canal stenosis. C5-C6: The disc is bulging. There is mild right and moderate left uncovertebral joint osteoarthritis. There is mild right and severe left facet joint osteoarthritis. There is mild right and moderate lef t neural foraminal stenosis. There is mild central canal stenosis. C6-C7: The disc is bulging. There is severe bilateral uncovertebral joint osteoarthritis. There is se davy bilateral facet joint osteoarthritis. There is moderate bilateral neural foraminal stenosis. The re is severe central canal stenosis with ventral and dorsal indentation of the spinal cord. C7-T1: The disc does not extend beyond the endplate margin. There is no uncovertebral joint osteoarth ritis. There is mild right and moderate left facet joint osteoarthritis. There is mild bilateral neur al foraminal stenosis. There is no central canal stenosis. IMPRESSION: 1. Myelomalacia at C6-C7. 2. Severe cervical spondylosis, worst at C6-C7. Reviewed, dictated and finalized at location A.
--- NOTE | ~2024-08-04 | MR_ITS ---
EXAMINATION: MR thoracic spine wo/w con DATE: 08/04/2024 14:35 INDICATION: Radiculopathy. Left leg burning sensation. TECHNIQUE: Magnetic resonance imaging (MRI) of the thoracic spine was performed without and with 17 m L MultiHance intravenous contrast. COMPARISON: None FINDINGS: Alignment is normal in thoracic spine. There is mild chronic anterior wedging of T1 vertebr al body. There is mildly decreased disc height at T8-T9, T10-T11, and T11-T12. There is multilevel fa cet joint osteoarthritis, severe in lower thoracic spine. There is mild neural foraminal stenosis at a few levels on either side. At T8-T9, the disc is bulging with mild central canal stenosis. At T9-T1 0, the disc is bulging with mild central canal stenosis. At T10-T11, the disc is bulging with mild ce ntral canal stenosis. At T11-T12, the disc is bulging with mild central canal stenosis. The spinal co rd signal intensity is normal in thoracic spine. IMPRESSION: 1. Mild thoracic spondylosis. Reviewed, dictated and finalized at location A.
--- NOTE | ~2024-08-04 | MR_ITS ---
Procedure: MR brain/brain stem wo/w con Ordering provider: Radha Strauss MD History: . R68.89 - Other general symptoms and signs . Comparison: CT head performed yesterday. Technique: MRI brain was performed with and without contrast. 17 mL of MultiHance was given IV. FINDINGS: BONES: Normal. CRANIOCERVICAL JUNCTION: normal. PITUITARY: Normal. MAJOR INTRACRANIAL VESSELS: Normal flow void. OPTIC NERVES AND CRANIAL NERVES VII AND VIII COMPLEXES: Grossly normal. BRAIN PARENCHYMA AND CSF SPACES: No abnormal signal in the brain parenchyma. The brainstem and cerebe llum are normal. No acute or chronic intracranial hemorrhage. No extra axial fluid collections. Diffu matthieu weighted and ADC mapping images reveal no recent ischemia. No midline shift or mass effect. No a bnormal contrast enhancement. PARANASAL SINUSES: Normal. MASTOIDS: Normal SUPERFICIAL/SURROUNDING SOFT TISSUES: Normal. IMPRESSION: 1. No acute intracranial findings. 2. No abnormal enhancement. Reviewed, dictated and finalized at location A.
== END 2024-08-04 12:36 | disposition home or self-care (01) ==
LOC: MICIMG 12:36
PROVIDERS: PCP Neurological Surgery; Visit Provider Neurological Surgery
DX: G95.89 Other specified diseases of spinal cord (principal); M43.02 Spondylolysis, cervical region; M43.04 Spondylolysis, thoracic region
CPT/HCPCS: 70553; 72156; 72157; A9577

== ENCOUNTER 2024-08-08 11:00 | Outpatient (CLI) | payer MEDICARE, SELFPAY ==
--- NOTE | ~2024-08-08 | CT_ITS ---
CT Scan of the Chest without Contrast: Clinical Indication: Lung cancer screening, nicotine dependence Technique: Contiguous sections were acquired throughout the chest without intravenous contrast. Dose reduction technique was used on this scan by utilizing automated exposure control and iterative recon struction technique. The dose-length product (DLP) was 138.52 mGy-cm. COMPARISON: 08/07/2023 Findings: There is no evidence of any significant mediastinal, hilar or axillary lymphadenopathy. The mediastin al soft tissues appear normal. There is no evidence of pleural or pericardial effusion. Stable 2 mm right lower lobe pulmonary nodule. Images through the upper abdomen reveal no abnormalities. Impression: Lung RADS 2: Benign appearance. 12 month follow-up screening CT advised. Reviewed, dictated and finalized at location . Impression: Lung RADS 2: Benign appearance. 12 month follow-up screening CT advised.
== END 2024-08-08 11:01 | disposition home or self-care (01) ==
PROVIDERS: PCP Neurological Surgery; Visit Provider Family Medicine
DX: Z12.2 Encounter for screening for malignant neoplasm of respiratory organs (principal); Z87.891 Personal history of nicotine dependence
CPT/HCPCS: 71271

== ENCOUNTER 2024-08-10 10:43 | Outpatient (CLI) | payer MEDICARE, SELFPAY ==
--- NOTE | ~2024-08-10 | XR_ITS ---
Cervical Spine: AP, lateral, open-mouth views Clinical History: Spinal cord disease, numbness Findings: The normal lordotic curve is maintained. No acute fracture seen. There is 3 mm retrolisthes is of C6 over C7. There is advanced degenerative disc narrowing at C6-C7. Mild to moderate facet join t degenerative changes are present. No instability evident on flexion or extension views. Pre-vertebr al soft tissues are unremarkable. Impression: 3 mm retrolisthesis of C6 over C7. No instability evident. Moderate degenerative spondylosis, as above. Reviewed, dictated and finalized at location M. Impression: 3 mm retrolisthesis of C6 over C7. No instability evident. Moderate degenerative spondylosis, as above.
== END 2024-08-10 10:44 | disposition home or self-care (01) ==
LOC: ANHIMG 10:45
PROVIDERS: PCP Neurological Surgery; Visit Provider Neurological Surgery
DX: M43.12 Spondylolisthesis, cervical region (principal); M47.812 Spondylosis without myelopathy or radiculopathy, cervical region; G95.9 Disease of spinal cord, unspecified
CPT/HCPCS: 72050

== ENCOUNTER 2024-09-08 07:56 | Outpatient (CLI) | payer MEDICARE, SELFPAY ==
--- NOTE | 2024-09-08 08:14 | ECG_ITS ---
Test Date: 2024-09-08 08:31:37 Measurements Intervals [place] Rate: 44 P: 23 VT: 183 QRS: 17 QRSD: 131 T: 20 QT: 458 QTc: 394 Interpretive Statements SINUS BRADYCARDIA INTRAVENTRICULAR CONDUCTION DELAY BORDERLINE R WAVE PROGRESSION, ANTERIOR LEADS CONSULT INFERIOR INFARCT, AGE INDETERMINATE ABNORMAL ECG No previous ECG available for comparison Electronically Signed On 09-08-2024 08:37:11 [employer] by Delvis Samuel D.O.
[2024-09-08 09:07] LABS: Hematocrit 42.6 % (42.0-52.0); Hemoglobin 14.1 g/dL (14.0-18.0); Mean Corpuscular HGB Conc 33.1 g/dl (32-36); Mean Corpuscular Hemoglobin 28.9 pg (26-34); Mean Corpuscular Volume 87.3 fl (80-100); Mean Platelet Volume 10.8 fl (7.4-10.4); Platelet Count Result 190 k/mm3 (150-375); Red Blood Count 4.88 M/mm3 (4.6-6.20); Red Cell Distribution Width 12.6 % (11.5-14.5); White Blood Count 4.9 K/mm3 (4.5-10.0)
[2024-09-08 09:10] LABS: Add Urine Microscopic? NO; Appearance Urine Clear (Clear); Bilirubin Urine Negative (Negative); Blood Urine Negative (Negative); Color Urine Yellow (Yellow); Glucose Urine UA Negative (Negative); Ketones Urine Negative (Negative); Leukocyte Esterase Ur Negative LEU/UL (Negative); Nitrate Urine Negative (Negative); Protein Urine Negative (Negative); Specific Grav Ur 1.006 (1.001-1.035); pH Urine 7.5 (5.0-9.0)
[2024-09-08 09:31] LABS: Partial Thromboplastin Time 30.8 Seconds (22.3-36.8)
[2024-09-08 09:39] LABS: Prothrombin Time 13.7 Seconds (11.1-14.7)
[2024-09-08 09:44] LABS: Anion Gap 7 mmol/L (4-12); Blood Urea Nitrogen 12 mg/dL (9-20); Calcium 9.4 mg/dL (8.4-10.2); Carbon Dioxide 29 mmol/L (22-30); Chloride 103 mmol/L (98-107); Estimated Glomerular Filt Rate > 60; Glucose 97 mg/dL (65-110); Potassium 3.9 mmol/L (3.4-5.0); Sodium 139 mmol/L (137-145)
== END 2024-09-08 07:57 | disposition home or self-care (01) ==
PROVIDERS: PCP Family Medicine; Visit Provider Neurological Surgery
DX: Z01.818 Encounter for other preprocedural examination (principal); G95.9 Disease of spinal cord, unspecified; M54.12 Radiculopathy, cervical region; R94.31 Abnormal electrocardiogram [ECG] [EKG]; I45.9 Conduction disorder, unspecified
CPT/HCPCS: 36415; 80048; 81003; 85027; 85610; 85730; 86850; 86900; 86901; 93005

== ENCOUNTER 2024-09-14 01:03 | Day surgery (SDC) | payer MEDICARE, SELFPAY ==
--- NOTE | 2024-09-02 13:49 | PC.NURSE ---
Report to the Outpatient Waiting Room, entrance under the green pavilion located off [facility], at time 08:00am____ on date 09/14/24 . Planned Procedure Time: ___10:00am .? Time changes happen often and if your time is changed the preop area will call you the afternoon before. - You and your visitor will be asked to self-screen and do not enter if you have any COVID symptoms. Please call surgeon if you need to reschedule. - A mask is optional within the hospital at this time. Patients may have clear liquids (water, carbonated beverages, clear teas, apple juice) until 3 hours prior to surgery with a maximum of 20 ounces. - No food from midnight until time of surgery and no smoking-( 07:00am) Take only the following medications with a SIP of water on the morning of surgery: __Amlodipine DO NOT STOP ANY OF YOUR OTHER PRESCRIPTION MEDICATIONS PRIOR TO SURGERY EXCEPT THE FOLLOWING Medications to discontinue per physician None Date to take last dose___None ___ Please no make-up, nail montenegrin, hairspray, perfume, deodorant, or body powder the day of surgery.? No jewelry (including any body piercings) or valuables the day of surgery, leave them at home.? Please take a shower or bath the night before, or the morning of, surgery with an antibacterial soap.? Wear comfortable, loose fitting clothing. - Jewelry must be removed prior to entering the operating room.? Rings and piercings that are not removed may be cut off. - The hospital will not accept responsibility for valuables.? - Please leave all valuables, including medications, at home the day of surgery. If you are going home after surgery, a licensed company driver must drive you home.? - NO public transportation without another adult if you receive anesthesia. - We recommend that an adult stay with you for 24 hours following discharge. - We also recommend that you do not drive, make important decision, drink alcoholic beverages, or take any drugs that were not prescribed by your health care provider for at least 24 hours after your discharge time. Follow any additional instructions given to you from your surgeon. Telephone instructions given to ___Patient and asked if any additional questions and then verbalized understanding. Patient advised to call surgeon office or pre surgery nurse liaison [phone] if any additional questions.
[2024-09-02 13:55] VITALS: BMI 29.3
[2024-09-14] VITALS (13 sets, daily range): BP systolic 137–179; BP diastolic 57–74; PULSE 46–76; RESP 14–20; TEMP 36.3–36.9; O2SAT 93–100
--- NOTE | ~2024-09-14 | XR_ITS ---
INTRAOPERATIVE FLUOROSCOPY: CLINICAL HISTORY: 64 years old Male; ANTERIOR CERVICAL DISCECTOMY AND FUSION C5-C6, C6-C7 PROCEDURE COMMENTS: Limited intraoperative fluoroscopy of the cervical spine was performed. CUMULATIVE DOSE: 2.5 mGy FLUOROSCOPY TIME: 22.3 seconds FINDINGS/IMPRESSION: Please refer to operative note for further details. Reviewed, dictated and finalized at location A. STANT DIRECTOR OF PLANT OPERATIONS
--- NOTE | 2024-09-14 09:48 | P.HP_ITS ---
H&P: HPI History of Present Illness Date/Time: 09/14/24 09:48 Chief Complaint: myelopathy Narrative: From 07/20: Mr. Murdock is a 64-year-old male who I have been following for workup of left leg pain following an S1 distribution who returns today for follow-up of his recent EMG. He describes a 20+ year history of left leg pain, worse at night, for which he has had physical therapy, 2 epidural steroid injections, and courses of gabapentin and Lyrica without any improvement, even on a temporary basis. His imaging has been negative for any pathology affecting the S1 nerve root. At his last visit, I had given him the option of obtaining an updated EMG to help us look for a diagnosis. Dr. Turcios did not find an explanation for his leg pain but did mention multiple upper motor neuron signs on his physical exam that had not been documented previously in our visits here. Dr. Turcios recommended imaging of the rest of his neural access to look for multiple sclerosis. I requested to see the patient to evaluate him further for this. He does describe some worsening of shooting pain down the left arm over the last few months. He denies any significant neck pain, paresthesias in the arms or hands, or right leg symptoms. He denies issues with dropping things, gripping things, tripping, or falling. He denies any previous episodes to his knowledge of vision loss, weakness in other extremities, or other symptoms that might go along with MS. He does have a several year history of urinary problems which were felt to be related to an enlarged prostate including urinary retention for which he had to catheterize himself for a time. He was treated for this back in 2020 but has had increasing issues with urinary frequency and urgency recently. From 08/11: He returns today with imaging of the rest of his neural axis. He continues to have pain in the left arm radiating into his C6 and C7 distribution. We again discussed the worsening of his urinary symptoms as well as some issues with balance. He states that the burning pain in his leg is getting worse. Review of Systems Review of Systems: All systems reviewed & are unremarkable except as noted in HPI and below PMFSH Past Medical History Medical History (Updated 08/11/24 @ 14:15 by Radha Strauss MD) Enlarged prostate Hyperlipidemia Hypertension Surgical History Surgical History Status post arthroscopy of left knee Status post biopsy of skin Family History Family History Mother Hypertension Diabetes mellitus Sibling Breast cancer Father Heart failure Social History Social History Smoking packs per day: 1 Smoking cigarettes per day: 20.0 Years smoked: 45 Smoking pack-years: 45.00 Smoking status: Former smoker Tobacco type: cigarettes Smoking end date: 11/02/22 Alcohol intake: never Drinks per week: 12 Substance use: never Substance use type: does not use Do You Feel Safe in your Home?: Yes Lack of Transportation: No Lack of Food: Never True Current Housing: I Have Housing Concerned About Future Housing: No Difficulty Paying Gas/Electric Bills: No Difficulty Paying for Meds: No Currently Unemployed: No Education: High School Diploma/GED Difficulty w/ Childcare or Family Care: No Living arrangements: alone Gender identity (if verbalized by the patient): Male Spiritual care concerns: No Agree to blood products: Yes Meds Home Medications and Allergies Home Medications Medication Instructions Recorded Confirmed Type finasteride 5 mg tablet 5 mg PO DAILY #30 tabs 11/30/19 09/02/24 Rx tamsulosin 0.4 mg capsule (Flomax) 0.4 mg PO HS #30 caps 11/30/19 09/02/24 Rx BiPAP #1 ea 08/10/23 05/26/24 Rx famotidine 20 mg tablet (Pepcid AC) 20 mg PO DAILY 06/10/24 09/02/24 History amlodipine 10 mg tablet 10 mg PO DAILY #90 tabs 06/28/24 09/02/24 Rx rosuvastatin 10 mg tablet 10 mg PO DAILY #90 tabs 06/28/24 09/02/24 Rx Allergies Allergy/AdvReac Type Severity Reaction Status Date / Time No Known Allergies Allergy Verified 09/02/24 13:53 Vital Signs Vital Signs - 24 hr 09/14/24 08:58 Temperature 97.7 F Pulse Rate 54 L Respiratory Rate 14 Blood Pressure 166/74 H Pulse Oximetry 98 Oxygen Delivery Room Air Exam Narrative: Positive right Turner's Positive Babinski's bilaterally 3-beat clonus on left, 6-beat clonus on right 3+ patellar reflexes Bilateral hand blanket winder helper 4/5 Decreased sensation to light touch in left lateral leg and thigh Unless otherwise stated above, the patient's physical exam is as follows: General: -Well developed and well nourished. No a cute distress. Cooperative with exam. Mental status: -Awake and oriented to person, place, an d time. Affect is normal. -Fund of knowledge appropriate -Recent and remote memory are intact -Attention span and concentration appear normal -Language function is normal -There is no evidence of aphasia in conv ersational speech. Cranial nerves: -CN II: Visual tapia full to bedside co nfrontation -CN III, IV, : Pupils equal, round, an d reactive to light; extraocular movements, no ptosis, no nystagmus -CN V: Facial sensation intact in V1 thr ough V3 distributions -CN VII: Face symmetric -CN VIII: Hearing intact to conversation al speech -CN IX, X: Palate elevates symmetrically ; normal phonation -CN XI: Symmetric full strength of king ocleidomastoid and trapezius muscles -CN XII: Tongue protrudes midline Integumentary: -No obvious skin lesions or masses Motor: -Muscle tone normal without spasticity o f flaccidity. No atrophy. No fasciculations. -No pronator drift -Right upper extremity: deltoid 5/5, bic eps 5/5, triceps 5/5, wrist extensors 5/5, wrist flexors 5/5, intrinsics 5/5 -Left upper extremity: deltoid 5/5, lavon ps 5/5, triceps 5/5, wrist extensors 5/5, wrist flexors 5/5, intrinsics 5/5 -Right lower extremity: iliopsoas 5/5, q uadriceps 5/5, hamstrings 5/5, tibialis anterior 5/5, gastroc-soleus 5/5, EHL 5/5 -Left lower extremity: iliopsoas 5/5, qu adriceps 5/5, hamstrings 5/5, tibialis anterior 5/5, gastroc-soleus 5/5, EHL 5/5 Sensory: -Intact to light touch throughout -Normal proprioception throughout Reflexes: -1-2+ DTR's throughout -No Turner's, clonus, or Babinski bilat erally I personally reviewed the MRI brain on which I do not see any obvious enhancement or abnormality that would be suggestive of multiple sclerosis I personally reviewed the MRI thoracic spine on which I do not see any abnormality in the spinal cord. I personally reviewed the MRI cervical spine on which there is left neuroforaminal stenosis at C5-6 and severe central and left neuroforaminal stenosis at C6-7 with spinal cord compression and T2 cord signal change I personally reviewed the dynamic cervical x-rays which show significant degenerative disc disease at C6-7 without obvious flexion or extension. There is a slight retrolisthesis of C6 on C7 Assessment and Plan Assessment and plan (1) Cervical myelopathy: Code(s): G95.9 - Disease of spinal cord, unspecified Status: Acute (2) Cervical radiculopathy: Code(s): M54.12 - Radiculopathy, cervical region Status: Acute Plan Mr. Murdock is a 64-year-old male whom I have been following for left leg pain following an S1 dermatome without obvious radiographic explanation who returns today for follow-up of recent imaging of the rest of his neural axis which was performed for development of abnormal reflexes concerning for myelopathy. He additionally reports development of pain radiating down the left arm into a C6 and C7 distribution, worsening balance issues, and worsening urinary urgency and frequency. He had seen Dr. Turcios for an EMG for his leg pain, and Dr. Turcios was concerned for possible history of multiple sclerosis given his findings on physical exam and history of bladder issues. While the MRI of his brain and thoracic spine were normal, his MRI cervical spine does show, most notably, severe central stenosis at C6-7 causing spinal cord compression and T2 cord signal change. He also has significant left neuroforaminal stenosis at C5- 6 and C6-7. I reviewed the images today with the patient and his daughter. Ultimately, I have recommended surgery in the form of an ACDF C5-6 and C6-7. We discussed surgery in detail including risks, expected recovery, and restrictions after surgery.
--- NOTE | 2024-09-14 09:49 | WPDHPUPDATE1 ---
History and Physical Update Update Date/Time: 09/14/24 09:49 History and Physical has been reviewed, including an updated exam of the patient. There are NO changes in the patient's condition. Risks, benefits, and alternatives have been discussed and questions answered. Patient agrees to proceed with procedure.
--- NOTE | 2024-09-14 09:54 | WPDANESEPPF ---
Anes - Initial Pre Proc Eval Procedure: Operation Date: 09/14/24 10:00 Proposed Procedures p Anterior Cervical Discectomy and Fusion C5-C6, C6-C7 - Radha Strauss MD Date/Time: 09/14/24 09:54 Surgeon: Radha Strauss MD Pre Op Diagnosis: cervical myelopathy and radiculopathy Patient Data Age: 64 Gender: M Height: 1.7 m Weight: 85.1 kg Last Vital Signs Temp 36.5 C 09/14/24 08:58 Pulse 54 L 09/14/24 08:58 Resp 14 09/14/24 08:58 BP 166/74 H 09/14/24 08:58 Pulse Ox 98 09/14/24 08:58 O2 Del Method Room Air 09/14/24 08:58 Allergies Allergy/AdvReac Type Severity Reaction Status Date / Time No Known Allergies Allergy Verified 09/02/24 13:53 Home Medications Medication Instructions Recorded Confirmed Type finasteride 5 mg tablet 5 mg PO DAILY #30 tabs 11/30/19 09/02/24 Rx tamsulosin 0.4 mg capsule (Flomax) 0.4 mg PO HS #30 caps 11/30/19 09/02/24 Rx BiPAP #1 ea 08/10/23 05/26/24 Rx famotidine 20 mg tablet (Pepcid AC) 20 mg PO DAILY 06/10/24 09/02/24 History amlodipine 10 mg tablet 10 mg PO DAILY #90 tabs 06/28/24 09/02/24 Rx rosuvastatin 10 mg tablet 10 mg PO DAILY #90 tabs 06/28/24 09/02/24 Rx Patient hx anesthesia problems: none Family hx anesthesia problems: none Results Review: All pre-operative results and documents have been reviewed as part of the pre-operative evaluation. [facility] Past Medical History Medical History (Updated 08/11/24 @ 14:15 by Radha tSrauss MD) Enlarged prostate Hyperlipidemia Hypertension Surgical History Surgical History Status post arthroscopy of left knee Status post biopsy of skin Family History Family History Mother Hypertension Diabetes mellitus Sibling Breast cancer Father Heart failure Social History Social History Smoking packs per day: 1 Smoking cigarettes per day: 20.0 Years smoked: 45 Smoking pack-years: 45.00 Smoking status: Former smoker Tobacco type: cigarettes Smoking end date: 11/02/22 Alcohol intake: never Drinks per week: 12 Substance use: never Substance use type: does not use Do You Feel Safe in your Home?: Yes Lack of Transportation: No Lack of Food: Never True Current Housing: I Have Housing Concerned About Future Housing: No Difficulty Paying Gas/Electric Bills: No Difficulty Paying for Meds: No Currently Unemployed: No Education: High School Diploma/GED Difficulty w/ Childcare or Family Care: No Living arrangements: alone Gender identity (if verbalized by the patient): Male Spiritual care concerns: No Agree to blood products: Yes Anes - Eval Final PreProcedure Day of Procedure 09/14/24 09:54 Patient weight: overweight Heart: regular rate and rhythm Lungs: clear to auscultation Airway: Mallampati scale class II Neurological: alert and oriented Last oral intake: >/= 8 hours ASA classification: III Emergent: no Anesthetic plan: proceed Anesthesia type and monitoring: general GIVS and standard monitoring Results Review: All pre-operative results and documents have been reviewed as part of the pre-operative evaluation. Informed Consent: The patient's anesthetic plan and its attendant risks and benefits were discussed with the patient/family/POA. Questions were solicited and answers provided to the satisfaction of the patient/family/POA.
[2024-09-14] MEDS: LACTATED RINGERS 1,000 ML 30 ML IV CONT ×2 (10:00→13:00)
[2024-09-14] MEDS: ceFAZolin 2 GM/D5W 50 ML 2 GM/50 ML BAG IVPB ×2 (10:02→17:20)
[2024-09-14] MEDS: BUPIVACAINE/EPINEPHRINE 0.5% 50 ML VIAL 8 ML INFILTRATE (10:30)
--- NOTE | 2024-09-14 13:06 | W.PM.PROC2 ---
Procedure Note - Detailed Date of Procedure 09/14/24 Pre-op Diagnosis cervical myelopathy and radiculopathy Post-op Diagnosis Same Procedure Performed 1. Anterior cervical diskectomy C5-6, C6-7 2. Anterior cervical arthrodesis C5-6, C6-7 with i-Factor 3. Anterior cervical interbody placement at C5-6, C6-7 4. Use of microscope for microsurgical dissection 5. Use of C-arm for fluoroscopy Surgeon Radha Strauss MD Digital Business Analyst Miranda Nelson Anesthesia General Description of Procedure The patient was taken to the operating room and was transferred to the operating table in the supine position. General anesthesia was induced. Pressure points were appropriately padded, and compression devices were placed on the patient's calves. A shoulder roll was placed. The appropriate level was confirmed with the C-arm XR imaging. The patient was prepped and draped in usual sterile fashion. Perioperative antibiotics were given. Time out was performed. Local anesthesia was injected into the planned incision site. Incision was made with a 10-blade scalpel on the right side of the neck. The subcutaneous tissue was undermined above the platysma with the Metzenbaum scissors. The platysma was sharply opened horizontally. Bleeding was controlled with the bipolar. The avascular plane to the spine was dissected sharply. The anterior border of the spine was located and exposed with sharp and blunt dissection. A spinal needle was used to localize the C6-7 disc space; this was confirmed on fluoroscopy. The longus coli muscles were elevated bilaterally with a bovie. Once the C5, C6, and C7 vertebral bodies and adjacent intervertebral discs were adequately exposed, self-retaining retractors were placed. Huron pins were placed in C5 and C6. The disc was removed with a combination of currettes and kerrisons, and the posterior longitudinal ligament was opened until the neuroforamen bilaterally were adequately decompressed. Interbody trial instruments were used to determine the appropriate size for the prosthetic vertebral interbody cage. Hemostasis was achieved in the disc space. An 6mm interbody was filled with i-Factor and placed at C5-6. The caspar pin was removed from C5 and replaced in C7. Wax was placed in the caspar pin site. This process was repeated at the C6-7 disc. The disc was removed as described above, and the posterior longitudinal ligament was opened until the neuroforamen bilaterally were adequately decompressed. Interbody trial instruments were used to determine the appropriate size for the prosthetic vertebral interbody cage. Hemostasis was achieved in the disc space. A 5mm interbody was filled with i-Factor and placed at C6-7. The Huron pins were removed, and bone wax was used for hemostasis. Osteophytes over the vertebral bodies were removed with a Leksell and high-speed drill. A 30mm plate was placed over the C5, C6, and C7 vertebral bodies and secured with 14mm screws. Accurate hardware placement was confirmed with fluoroscopy. The surgical cavity was copiously irrigated; appropriate hemostasis was verified; and there was no evidence of dural tear/CSF leak. The platysma was closed with interrupted 3-0 Vicryl, followed by interrupted 3-0 Vicryl for the dermis, and 4-0 running subcuticular monocryl for the skin. Dermabond was placed. The patient was extubated, transferred to the bed, and taken to the PACU without incident. Billing codes 92839, [id number], 80973, 31123g2, 95483 Estimated Blood Loss 25 Drains No Packing No Pathology None sent Complications None Condition Stable Disposition PACU [facility] Billing Surgery - Charge Forward: Surgery Billing
[2024-09-14] MEDS: fentaNYL CITRATE INJ (*CRX) 100 MCG/2 ML VIAL 25 MCG IV PUSH ×2 (13:26→13:41)
--- NOTE | 2024-09-14 14:30 | ADMGEN ---
This patient, Markie Murdock, was admitted to Medical Room 253-01. Patient/family oriented to hospital policies and general routines including ID bracelet, bed and alarms, visiting hours, pain management, procedures, bathroom and other care routines, personal items, smoking policy, room service/diet, and visiting hours. Information on how to activate the Rapid Response Team has been discussed. Patient/Family are encouraged to report perceived risks to care and to ask questions if they do not understand what they are told or what they should do.
[2024-09-14] MEDS: oxyCODONE HCL (*CRX) 5 MG TAB IR PO (15:06)
[2024-09-14] MEDS: SODIUM CHLORIDE 0.9% IV 1,000 ML 100 ML IV CONT (15:14)
[2024-09-14] MEDS: ACETAMINOPHEN 500 MG TABLET 1000 MG PO (18:32)
[2024-09-14] MEDS: DOCUSATE SODIUM 100 MG CAPSULE PO (21:13)
[2024-09-14] MEDS: TAMSULOSIN HCL 0.4 MG CAPSULE PO (21:13)
[2024-09-15 00:34] VITALS: BP 126/59; PULSE 55; RESP 16; TEMP 36.5; O2SAT 97
[2024-09-15] MEDS: ACETAMINOPHEN 500 MG TABLET 1000 MG PO ×3 (01:50→12:10)
[2024-09-15] MEDS: ceFAZolin 2 GM/D5W 50 ML 2 GM/50 ML BAG IVPB ×2 (01:53→09:17)
[2024-09-15 06:23] VITALS: BP 143/56; PULSE 50; RESP 14; TEMP 36.8; O2SAT 97
[2024-09-15 08:03] VITALS: BP 170/64; PULSE 50; RESP 18; TEMP 35.8; O2SAT 98
[2024-09-15] MEDS: DOCUSATE SODIUM 100 MG CAPSULE PO (09:13)
[2024-09-15] MEDS: FINASTERIDE 5 MG TABLET PO (09:14)
[2024-09-15] MEDS: FAMOTIDINE 20 MG TABLET PO (09:14)
[2024-09-15] MEDS: ROSUVASTATIN 10 MG TABLET PO (09:14)
[2024-09-15] MEDS: amLODIPine BESYLATE 10 MG TABLET PO (09:14)
[2024-09-15 09:24] VITALS: RESP 18; O2SAT 98
[2024-09-15 12:03] VITALS: BP 138/52; PULSE 52; RESP 18; TEMP 36.2; O2SAT 99
--- NOTE | 2024-09-15 13:09 | WPDNEUROSGPN ---
Progress Note: A&P Assessment and Plan (1) Status post cervical arthrodesis: Code(s): Z98.1 - Arthrodesis status Status: Acute Plan -Discharge home today -Activity and wound care precautions reviewed at bedside -Follow up with me as scheduled in early October Date/time seen: 09/15/24 13:09 Interval history: Doing well today without significant pain. Swallowing without difficulty. Ambulating in halls and voiding independently. He would like to go home today Review of Systems Review of Systems: All systems reviewed & are unremarkable except as noted in HPI and below Exam Narrative: Incision c/d/i Moving all extremities well Sensation intact to light touch AOx4 Objective Data Vital Signs Vital Signs: Vital Signs - 24 hr 09/14/24 13:15 09/14/24 13:30 09/14/24 13:45 Temperature Pulse Rate 56 L 54 L 48 L Respiratory Rate 20 18 14 Blood Pressure 150/67 H 141/66 H 157/63 H Pulse Oximetry 100 94 98 Oxygen Delivery Simple Face Mask Room Air Nasal Cannula Oxygen Flow Rate 8 2 09/14/24 14:00 09/14/24 14:10 09/14/24 14:33 Temperature 97.4 F L Pulse Rate 46 L 58 L 61 Respiratory Rate 14 16 14 Blood Pressure 150/71 H 158/69 H 179/67 H Pulse Oximetry 98 98 98 Oxygen Delivery Nasal Cannula Nasal Cannula Oxygen Flow Rate 2 2 09/14/24 15:03 09/14/24 14:35 09/14/24 16:03 Temperature 97.6 F 97.8 F Pulse Rate 61 68 Respiratory Rate 18 18 20 Blood Pressure 150/67 H 155/74 H Pulse Oximetry 96 96 93 Oxygen Delivery Room Air Oxygen Flow Rate 09/14/24 17:23 09/14/24 20:03 09/15/24 00:34 Temperature 98.4 F 97.7 F 97.7 F Pulse Rate 71 76 55 L Respiratory Rate 18 16 16 Blood Pressure 157/64 H 137/61 126/59 L Pulse Oximetry 94 97 97 Oxygen Delivery Oxygen Flow Rate 09/15/24 06:23 09/15/24 08:27 09/15/24 08:03 Temperature 98.3 F 96.4 F L Pulse Rate 50 L 50 L Respiratory Rate 14 18 Blood Pressure 143/56 H 170/64 H Pulse Oximetry 97 98 Oxygen Delivery Room Air Oxygen Flow Rate 09/15/24 09:24 09/15/24 09:24 09/15/24 12:03 Temperature 97.1 F L Pulse Rate 52 L Respiratory Rate 18 18 Blood Pressure 138/52 L Pulse Oximetry 98 99 Oxygen Delivery Room Air Room Air Oxygen Flow Rate Intake/Output Intake/Output: Intake & Output 09/12/24 09/13/24 09/14/24 09/15/24 23:59 23:59 23:59 23:59 Intake Total 788.3 1314 Output Total 700 400 Balance 88.3 914 Meds/Results Medications: Active Medications Generic Name Dose Route Start Last Admin Trade Name Freq PRN Reason Stop Dose Admin Acetaminophen 1,000 mg 09/14/24 13:05 09/15/24 12:10 Acetaminophen 500 Mg Tablet PO 1,000 mg Q6H JOSE RAFAEL Administration Al Hydrox/Mg Hydrox/Simethicone 20 ml 09/14/24 13:03 Mag Hydrox/Al Hydrox/Simeth 30 Ml Udc PO Q4H PRN Indigestion/Heartburn Amlodipine Besylate 10 mg 09/15/24 09:00 09/15/24 09:14 Amlodipine Besylate 10 Mg Tablet PO 10 mg DAILY JOSE RAFAEL Administration Bisacodyl 10 mg 09/14/24 13:03 Bisacodyl 10 Mg Suppository RECTAL DAILY PRN Constipation Cyclobenzaprine HCl 10 mg 09/14/24 13:04 Cyclobenzaprine Hcl 10 Mg Tablet PO TID PRN Muscle Spasms Docusate Sodium 100 mg 09/14/24 21:00 09/15/24 09:13 Docusate Sodium 100 Mg Capsule PO 100 mg Q12HR JOSE RAFAEL Administration Famotidine 20 mg 09/15/24 09:00 09/15/24 09:14 Famotidine 20 Mg Tablet PO 20 mg DAILY JOSE RAFAEL Administration Fentanyl Citrate 25 mcg 09/14/24 13:14 09/14/24 13:41 Fentanyl Citrate Inj (*Crx) 100 Mcg/2 Ml Vial IV PUSH 25 mcg Q2M PRN Administration Pain Finasteride 5 mg 09/15/24 09:00 09/15/24 09:14 Finasteride 5 Mg Tablet PO 5 mg DAILY JOSE RAFAEL Administration Sodium Chloride 1,000 mls @ 100 mls/hr 09/14/24 13:05 09/15/24 08:41 Normal Saline Iv IV CONT 0 mls/hr .Q10H JOSE RAFAEL Infusion Morphine Sulfate 2 mg 09/14/24 13:04 Morphine Sulfate (*Crx) 2 Mg/Ml Inj IV PUSH Q2H PRN Breakthrough Pain Ondansetron HCl 4 mg 09/14/24 13:03 Ondansetron Inj 4 Mg/2 Ml Vial IV PUSH Q8H PRN Nausea And Vomiting Ondansetron HCl 4 mg 09/14/24 13:14 Ondansetron Inj 4 Mg/2 Ml Vial IV PUSH ONCE PRN Nausea Oxycodone HCl 5 mg 09/14/24 13:04 09/14/24 15:06 Oxycodone Hcl (*Crx) 5 Mg Tab Ir PO 5 mg Q4H PRN Administration Pain Rated 4-6 Oxycodone HCl 10 mg 09/14/24 13:04 Oxycodone Hcl (*Crx) 5 Mg Tab Ir PO Q4H PRN Pain Rated 7-10 Oxycodone HCl 5 mg 09/14/24 13:14 Oxycodone Hcl (*Crx) 5 Mg Tab Ir PO ONCE PRN Pain Rosuvastatin Calcium 10 mg 09/15/24 09:00 09/15/24 09:14 Rosuvastatin 10 Mg Tablet PO 10 mg DAILY JOSE RAFAEL Administration Senna/Docusate Sodium 1 tab 09/14/24 13:03 Senna/Docusate Sodium Tablet PO HS PRN Constipation Tamsulosin HCl 0.4 mg 09/14/24 21:00 09/14/24 21:13 Tamsulosin Hcl 0.4 Mg Capsule PO 0.4 mg HS JOSE RAFAEL Administration
--- NOTE | 2024-09-15 13:37 | WPDANESPN ---
Anes - Prog Note Post-Op Date/Time: 09/15/24 13:37 Cardiovascular status: normal Respiratory status: normal Airway patency: baseline Mental status: baseline Post-Op hydration status: normal Vital Signs: Last Vital Signs Temp 36.2 C L 09/15/24 12:03 Pulse 52 L 09/15/24 12:03 Resp 18 09/15/24 12:03 BP 138/52 L 09/15/24 12:03 Pulse Ox 99 09/15/24 12:03 O2 Del Method Room Air 09/15/24 09:24 O2 Flow Rate 2 09/14/24 14:10 Pain Score (VAS): 12/12 I/O: Intake & Output 09/14/24 09/15/24 09/15/24 23:59 07:59 15:59 Intake Total 538.3 350 964 Output Total 400 200 200 Balance 138.3 150 764 Post-procedural complaints: none Patient Feedback: Patient satisfied with anesthetic care.
== END 2024-09-15 13:55 | disposition home or self-care (01) ==
LOC: ANHSURGERY 08:16 → ANH2MED 14:24
PROVIDERS: PCP Family Medicine; Visit Provider Neurological Surgery
PROC: (CPT 63030; principal; 2024-09-14 10:00)
DX: M48.02 Spinal stenosis, cervical region (principal); G99.2 Myelopathy in diseases classified elsewhere; M54.12 Radiculopathy, cervical region; I10 Essential (primary) hypertension; E78.5 Hyperlipidemia, unspecified; N40.0 Benign prostatic hyperplasia without lower urinary tract symptoms; Z87.891 Personal history of nicotine dependence
CPT/HCPCS: 22551; 22552; 22853 ×2; 36415; 80048; 81003; 85027; 85610; 85730; 86850; 86900; 86901; 93005; 97161; 97165; 99199; A9270; C1713; J0330; J0690; J1100; J1171; J2003; J2250; J2405; J2704; J3010; J7030; J7120

== ENCOUNTER 2025-01-12 11:57 | Outpatient (CLI) | payer MEDICARE, SELFPAY ==
--- NOTE | ~2025-01-12 | XR_ITS ---
[id number] Ordering provider: Radha Strauss MD History: . Z98.1 - Arthrodesis status . Comparison: None. FINDINGS: VERTEBRAL BODIES: Minimal retrolisthesis at the level of C6-C7. Postoperative changes at the level of C5, C6 and C7. Normal height and alignment. No visible fracture or subluxation. The dens is intact. DISK SPACES: Disc spacers at the level of C5-C6 and C6-C7. Otherwise, well-maintained. Multilevel fac et joint disease. Multilevel uncovertebral joint osteoarthritic changes. PARASPINOUS SOFT TISSUES: No prevertebral soft tissue swelling. IMPRESSION: No acute osseous abnormality cervical spine. Postoperative changes. Reviewed, dictated and finalized at location A.
--- OUTSIDE RECORDS SUMMARY | 2025-01-12 13:41 | XMS_ITS | Clinical Summary ---
Author Organization [facility] Address [address] [place], [place] [address] Care Team Providers Care Farm Hand Name Role Phone Dg Santos Primary Care Provider [phone] Social History Tobacco Use Types Packs/Day Years Used Date Smoking Tobacco: Never Assessed Sex and Gender Information Value Date Recorded Sex Assigned at Not on file Legal Sex Male 9:36 AM CDT Gender Identity Not on file Sexual Orientation Not on file Plan of Treatment Health Maintenance Due Date Last Done Comments Colorectal Cancer Screening Colonoscopy (10 Years) 1958 PHQ-2 (Physician [place]) 1970 Hepatitis C 1976 DTaP, Tdap and Td Vaccines ( 1 - Tdap) 1977 Zoster Vaccines (1 of 2) 2008 Annual Medicare Wellness Visit 2023 Pneumococcal Vaccine: 65+ Ye ars (1 of 1 - PCV) 2023 COVID-19 Vaccine (1 - 2023-2 5 season) 2024 Influenza Adult (#1) 2024 PHQ-2 (Physician [place]) 11/02/2024 RSV Immunization or 60+ Years (1 - 1-dose 75+ series) 2033 Meningococcal B Vaccine Aged Out No l onger eligible based on patient's age to complete this topic Meningococcal Vaccine Aged Out No eddy ami eligible based on patient's age to complete this topic RSV Immunizations Under 20 Months Aged Out No longer eligible based on patient's age to complete this topic Insurance [employer] Care Teams Farm Hand Relationship Specialty Start Date End Date Dg Santos DO [id number] [facility] [address] [place] [address] [place] [id number] PCP - General FAMILY PRACTICE 08/29/24
--- OUTSIDE RECORDS SUMMARY | 2025-01-12 13:41 | XMS_ITS | Clinical Summary ---
Author Organization [facility] Address [address] [place] [address] Care Team Providers Care Reimbursement Consultant Name Role Phone Referral, Self Primary Care Provider Unavailabl e Allergies No known active allergies Medications finasteride (PROSCAR) 5 mg tablet Take 1 tablet (5 mg total) by mouth daily 05/26/2024 Active amLODIPine (NORVASC) 10 mg tablet Take 1 tablet (10 mg total) by mouth daily 06/29/2024 Active rosuvastatin (CRESTOR) 10 mg tablet Take 1 tablet (10 mg total) by mouth daily 06/29/2024 Active tamsulosin (FLOMAX) 0.4 mg extended release capsule Take 1 capsule (0.4 mg total) by mouth nightly 05/26/[address] (PROTONIX) 40 mg EC tablet Take 1 tablet (40 mg total) by mouth daily Active Active Problems Problem Noted Date Diagnosed Date Cervical disc disorder with myelopathy of mid-cervical region 09/08/2024 Surgical History Surgery Date Site/Laterality Comments KNEE SURGERY 11/02/1984 - 11/01/1985 Left Medical History Medical History Date Comments Gastric reflux Hypertension Kidney infection Disc disorder of lumbar region Family History Medical History Relation Name Comments Heart disease Father Heart disease Mother Relation Name Status Comments Father Mother Social History Tobacco Use Types Packs/Day Years Used Date Smoking Tobacco: Former Cigarettes Tobacco Cessation:Counseling Given: No AUDIT-C Answer Date Recorded Q1: How often do you have a drink containing alcohol? Never 07/14/2024 Q2: How many drinks containi ng alcohol do you have on a typical day when you are drinking? Patient does not drink Q3: How often do you have si x or more drinks on one occasion? 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 Gender Identity Not on file Sexual Orientation Not on file Obstetrics History Last Filed Vital Signs Vital Sign Reading Time Taken Comments Blood Pressure 166/68 09/01/2024 1:28 PM CDT Pulse 58 09/01/2024 1:28 PM CDT Temperature - - Respiratory Rate - - Oxygen Saturation 98% 09/01/2024 1:28 PM CDT Inhaled Oxygen Concentration - - Weight 84.8 kg (187 lb) 09/01/2024 1:28 PM CDT Height 170.2 cm (5' 7 ) 09/01/2024 1:28 PM CDT Body Mass Index 29.29 09/01/2024 1:28 PM CDT Plan of Treatment Scheduled Procedures Name Priority Associated Diagnoses Date/Ti me FUSION CERVICAL ANTERIOR DIS CECTOMY WITH INSTRUMENTATION Cervical disc disorder with myelopathy of mid-cervical region SPINAL CORD MONITORING Cervical disc disorder with myelopathy of mid-cervical region Health Maintenance Due Date Last Done Comments Colon Cancer Screening-Colonoscopy 1958 Depression Screening 1958 Fall Risk Assessment 1958 Hepatitis C Screening 1958 Prostate Cancer Screening-PSA 1958 DTaP/Tdap/Td Vaccine (1 - Tdap) 1969 Hepatitis B Screening 1976 Pneumococcal vaccine 65+ (1 of 1 - PCV) 2008 Zoster Vaccine (1 of 2) 2008 Abdominal Aortic Aneurysm (AAA) Screen 2023 Well Visit 65+ 2023 Influenza Vaccine (#1) 2024 Insurance AETNA MEDICARE GOLD AETNA MEDICARE GOLD Care Teams Reimbursement Consultant Relationship Specialty Start Date End Date Referral, Self PCP - General 06/27/24
--- OUTSIDE RECORDS SUMMARY | 2025-01-12 13:41 | XMS_ITS | Referral Summary ---
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
--- OUTSIDE RECORDS SUMMARY | 2025-01-12 13:41 | XMS_ITS | Continuity of Care Document ---
Author Organization [facility] Address [address] [place] [address] [address] [place] [address] Phone Care Team Providers Care Ship Laborer Name Role Phone Richy, Edward Unavailable Unavailable Advance Directives Directive Yes / No Effective Date File Name No Information Encounters Encounter Description Practice Location Reason(s) For Visit Diagnoses Date Provider Providers Copied on Encounter [facility], [address], [place], [place], [id number], [place] tel:[phone] [facility] No Information Dec- 9-200 3 Doisy Edward. [address] , [address], [place], [address], [place]. tel:[phone] Family History Family Member Type Diagnosis Age [...]
--- OUTSIDE RECORDS SUMMARY | 2025-01-12 13:41 | XMS_ITS | Clinical Summary ---
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 Gender Identity Not on file Sexual Orientation Not on file Plan of Treatment Health Maintenance Due Date Last Done Comments Hepatitis C Virus (HCV) Screening 1960 TdaP Immunization 1958 Colonoscopy 2003 Colorectal Cancer Screening 2003 Cologuard 2008 Immunochemical Fecal Occult Blood 2008 Pneumococcal Immunization (5 0+ years) (1 of 1 - PCV) 2008 Zoster Immunization (1 of 2) 2008 PSA Discussion 2013 Influenza Immunization (#1) 2024 SARS-COV-2 Immunization ( - season) 2024 Respiratory Syncytial Virus (RSV) Immunization (Adult) (1 - 1-dose 75+ series) 2033 Hepatitis B Immunization Aged Out No longer eligible based on patient's age to complete this topic Meningococcal Immunization (ACWY) Aged Out No longer eligible based on patient's age to complete this topic Rotavirus Immunization Aged Out No lo nger eligible based on patient's age to complete this topic
== END 2025-01-12 11:58 | disposition home or self-care (01) ==
PROVIDERS: PCP Neurological Surgery; Visit Provider Neurological Surgery
DX: Z98.1 Arthrodesis status (principal)
CPT/HCPCS: 72040

== ENCOUNTER 2025-01-25 15:33 | Outpatient (CLI) | payer MEDICARE, SELFPAY ==
--- NOTE | ~2025-01-25 | MR_ITS ---
EXAMINATION: MR lumbar spine wo con DATE: 01/25/2025 16:12 INDICATION: Arthrodesis status. TECHNIQUE: Magnetic resonance imaging (MRI) of the lumbar spine was performed without intravenous con trast. Sequences included sagittal T2-weighted FSE, sagittal T2-weighted FS FSE, sagittal T1-weighted FSE, and axial T2-weighted FSE. COMPARISON: Lumbar spine MRI 02/20/2024 FINDINGS: There is 5 degrees levocurvature of lumbar spine. There is 3 mm retrolisthesis of L3 on L4 and L4 on L5. There is mild chronic anterior wedging of L1 vertebral body. There is mildly decreased disc height at L3-L4 and moderately decreased disc height at L4-L5 and L5-S1. Epidural lipomatosis is noted. The distal spinal cord signal intensity is normal. The conus medullaris is at L1-L2. The foll owing disc levels are specifically discussed: L1-L2: The disc is bulging. There is moderate bilateral facet joint osteoarthritis. There is mild pamela ateral neural foraminal stenosis. There is mild central canal stenosis. L2-L3: The disc is bulging. There is moderate bilateral facet joint osteoarthritis. There is mild pamela ateral neural foraminal stenosis. There is no central canal stenosis. L3-L4: The disc is bulging. There is severe bilateral facet joint osteoarthritis. There is mild bilat eral neural foraminal stenosis. There is mild central canal stenosis. L4-L5: The disc is bulging with superimposed left central extrusion. There is moderate bilateral face t joint osteoarthritis. There is moderate bilateral neural foraminal stenosis. There is mild central canal stenosis. L5-S1: The disc is bulging and has an annular fissure. There is severe bilateral facet joint osteoart hritis. There is mild right and moderate left neural foraminal stenosis. There is mild central canal stenosis. IMPRESSION: 1. Moderate lumbar spondylosis, stable from 02/20/2024. Reviewed, dictated and finalized at location A.
--- OUTSIDE RECORDS SUMMARY | 2025-01-25 16:48 | XMS_ITS | Clinical Summary ---
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
--- OUTSIDE RECORDS SUMMARY | 2025-01-25 16:48 | XMS_ITS | Referral Summary ---
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
--- OUTSIDE RECORDS SUMMARY | 2025-01-25 16:48 | XMS_ITS | Clinical Summary ---
Author Organization [facility] Address [address] [place], [place] [address] Care Team Providers Care Blower Mechanic Name Role Phone Dg Santos Primary Care Provider [phone] Social History Tobacco Use Types Packs/Day Years Used Date Smoking Tobacco: Never Assessed Sex and Gender Information Value Date Recorded Sex Assigned at Not on file Legal Sex Male 9:36 AM CDT Gender Identity Not on file Sexual Orientation Not on file Plan of Treatment Health Maintenance Due Date Last Done Comments Colorectal Cancer Screening Colonoscopy (10 Years) 1958 PHQ-2 (Physician [place]) 1970 Hepatitis C 1976 DTaP, Tdap and Td Vaccines ( 1 - Tdap) 1977 Zoster Vaccines (1 of 2) 2008 Annual Medicare Wellness Visit 2023 Pneumococcal Vaccine: 65+ Ye ars (1 of 1 - PCV) 2023 COVID-19 Vaccine (1 - 2023-2 5 season) 2024 Influenza Adult (#1) 2024 PHQ-2 (Physician [place]) 11/02/2024 RSV Immunization or 60+ Years (1 [...] complete this topic Insurance AETNA Care Teams Blower Mechanic Relationship Specialty Start Date End Date Dg Santos DO [id number] [facility] [address] [place] [id number] PCP - General FAMILY PRACTICE 08/29/24
--- OUTSIDE RECORDS SUMMARY | 2025-01-25 16:48 | XMS_ITS | Continuity of Care Document ---
Author Organization [facility] Address [address] [place] [address] [address] [place] [address] Phone Care Team Providers Care Associate Professor Of Law Name Role Phone Richy, Edward Unavailable Unavailable Advance Directives Directive Yes / No Effective Date File Name No Information Encounters Encounter Description Practice Location Reason(s) For Visit Diagnoses Date Provider Providers Copied on Encounter [facility], [address], [place], [place], [id number], [place] tel:[phone] [facility] No Information Dec- 9-200 3 Doisy Edward. [address] , [address], [place], [address], [place]. tel:[phone] Family History Family Member Type Diagnosis Age [...]
--- OUTSIDE RECORDS SUMMARY | 2025-01-25 16:49 | XMS_ITS | Clinical Summary ---
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
== END 2025-01-25 15:34 | disposition home or self-care (01) ==
PROVIDERS: PCP Neurological Surgery; Visit Provider Neurological Surgery
DX: G95.9 Disease of spinal cord, unspecified (principal); Z98.1 Arthrodesis status; M47.896 Other spondylosis, lumbar region
CPT/HCPCS: 72148

== ENCOUNTER 2025-02-20 12:39 | Outpatient (CLI) | payer MEDICARE, SELFPAY ==
--- NOTE | ~2025-02-20 | XR_ITS ---
EXAMINATION: XR chest 2V DATE: 02/20/2025 13:41 INDICATION: Intervertebral disc disorders with radiculopathy. Preoperative evaluation. TECHNIQUE: PA and lateral views of the chest were obtained. COMPARISON: PET/CT dated 08/08/2024 FINDINGS: Calcified nodule at the anterior right lung base consistent with old granulomatous disease. No other airspace opacities, pulmonary edema, pleural effusion or pneumothorax. The cardiomediastinal silhouet te is normal. Mild thoracic spondylosis. Plain screw fixation for multilevel lower cervical anterior spinal fusion. IMPRESSION: 1. No acute cardiopulmonary disease. Reviewed, dictated and finalized at location A.
[2025-02-20 13:56] LABS: Hematocrit 39.6 % (42.0-52.0); Hemoglobin 12.7 g/dL (14.0-18.0); Mean Corpuscular HGB Conc 32.1 g/dl (32-36); Mean Corpuscular Hemoglobin 28.2 pg (26-34); Mean Corpuscular Volume 87.8 fl (80-100); Mean Platelet Volume 9.6 fl (7.4-10.4); Platelet Count Result 187 k/mm3 (150-375); Red Blood Count 4.51 M/mm3 (4.6-6.20); Red Cell Distribution Width 13.2 % (11.5-14.5); White Blood Count 5.7 K/mm3 (4.5-10.0)
[2025-02-20 13:57] LABS: Add Urine Microscopic? NO; Appearance Urine Clear (Clear); Bilirubin Urine Negative (Negative); Blood Urine Negative (Negative); Color Urine Yellow (Yellow); Glucose Urine UA Negative (Negative); Ketones Urine Negative (Negative); Leukocyte Esterase Ur Negative LEU/UL (Negative); Nitrate Urine Negative (Negative); Protein Urine Negative (Negative); Urobilinogen Urine 0.2 mg/dL (<2.0); pH Urine 6.5 (5.0-9.0)
--- OUTSIDE RECORDS SUMMARY | 2025-02-20 14:04 | XMS_ITS | Clinical Summary ---
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
--- OUTSIDE RECORDS SUMMARY | 2025-02-20 14:04 | XMS_ITS | Referral Summary ---
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
--- OUTSIDE RECORDS SUMMARY | 2025-02-20 14:04 | XMS_ITS | Clinical Summary ---
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
--- OUTSIDE RECORDS SUMMARY | 2025-02-20 14:04 | XMS_ITS | Clinical Summary ---
Author Organization [facility] Address [address] [place] [address] Care Team Providers Care Shot Polisher Name Role Phone Dg Santos Primary Care Provider [phone] Social History Tobacco Use Types Packs/Day Years Used Date Smoking Tobacco: Never Assessed Sex and Gender Information Value Date Recorded Sex Assigned at Not on file Legal Sex Male 9:36 AM CDT Gender Identity Not on file Sexual Orientation Not on file Plan of Treatment Health Maintenance Due Date Last Done Comments Colorectal Cancer Screening Colonoscopy (10 Years) 1958 Hepatitis C 1976 DTaP, Tdap and Td Vaccines ( 1 - Tdap) 1977 Pneumococcal Vaccine: 50+ Ye ars (1 of 1 - PCV) 2008 Zoster Vaccines (1 of 2) 2008 Annual Medicare Wellness Visit 2023 COVID-19 Vaccine ( - 2023-2 5 season) 2024 PHQ-2 (Physician [place]) 11/02/2024 RSV Immunization or 60+ Years (1 [...] complete this topic Insurance AETNA Care Teams Shot Polisher Relationship Specialty Start Date End Date Dg Santos DO [address] [facility] [address] [place] [id number] PCP - General FAMILY PRACTICE 08/29/24
--- OUTSIDE RECORDS SUMMARY | 2025-02-20 14:04 | XMS_ITS | Continuity of Care Document ---
Author Organization [facility] Address [address] [place] [address] [address] [place] [address] Phone Care Team Providers Care Software Engineer Developer Name Role Phone Richy, Edward Unavailable Unavailable Advance Directives Directive Yes / No Effective Date File Name No Information Encounters Encounter Description Practice Location Reason(s) For Visit Diagnoses Date Provider Providers Copied on Encounter [facility], [address], [place], [place], [id number], [place] tel:[phone] [facility] No Information Dec- 9-200 3 Doisy Edward. [address] , [address], [place], [address], [place]. tel:[phone] Family History Family Member Type Diagnosis Age At Onset No Information Payers Payer name Insurance type Covered libertarian ID Authoriza tion(s) No Information Social History [...]
[2025-02-20 14:09] LABS: Anion Gap 9 mmol/L (4-12); Blood Urea Nitrogen 14 mg/dL (9-20); Carbon Dioxide 29 mmol/L (22-30); Chloride 102 mmol/L (98-107); Estimated Glomerular Filt Rate > 60; Glucose 85 mg/dL (65-110); Sodium 140 mmol/L (137-145)
[2025-02-20 14:19] LABS: Prothrombin Time 13.8 Seconds (11.1-14.7)
[2025-02-20 14:20] LABS: Partial Thromboplastin Time 31.9 Seconds (22.3-36.8)
== END 2025-02-20 12:40 | disposition home or self-care (01) ==
PROVIDERS: PCP Nurse Practitioner Family; Visit Provider Neurological Surgery
DX: Z01.818 Encounter for other preprocedural examination (principal); M51.16 Intervertebral disc disorders with radiculopathy, lumbar region
CPT/HCPCS: 36415; 71046; 80048; 81003; 85027; 85610; 85730

== ENCOUNTER 2025-03-08 01:22 | Day surgery (SDC) | payer MEDICARE, SELFPAY ==
[2025-02-20 13:03] VITALS: BP 159/67; PULSE 50; RESP 16; TEMP 36.6; O2SAT 99; BMI 29.5
--- NOTE | 2025-02-20 13:17 | PC.NURSE ---
Report to the Outpatient Waiting Room, entrance under the green pavilion located off [facility], at time ___0800am____ on date _03/08/25 . Planned Procedure Time: ____1000am____.? Time changes happen often and if your time is changed the preop area will call you the afternoon before. - You and your visitor will be asked to self-screen and do not enter if you have any COVID symptoms. Please call surgeon if you need to reschedule. - A mask is optional within the hospital at this time. Patients may have clear liquids (water, carbonated beverages, clear teas, apple juice) until 3 hours prior to surgery with a maximum of 20 ounces. - No food from midnight until time of surgery and no smoking, or chewing tobacco (or any form of nicotine). No chewing gum, candy or mints. (0700am) Take only the following medications with a SIP of water on the morning of surgery: Amlodipine DO NOT STOP ANY OF YOUR OTHER PRESCRIPTION MEDICATIONS PRIOR TO SURGERY EXCEPT THE FOLLOWING Hold all vitamins and supplements for 3 days per anesthesiologist. Medications to discontinue per physician ____None Date to take last dose None Please no make-up, nail greenlandic, hairspray, perfume, deodorant, or body powder the day of surgery.? No jewelry (including any body piercings) or valuables the day of surgery, leave them at home.? Please take a shower or bath the night before, or the morning of, surgery with an antibacterial soap.? Wear comfortable, loose fitting clothing.? Overnight bag just in case - Jewelry must be removed prior to entering the operating room.? Rings and piercings that are not removed may be cut off. - The hospital will not accept responsibility for valuables.? - Please leave all valuables, including medications, at home the day of surgery. If you are going home after surgery, a licensed regional driver must drive you home.? - NO public transportation without another adult if you receive anesthesia. - We recommend that an adult stay with you for 24 hours following discharge. - We also recommend that you do not drive, make important decision, drink alcoholic beverages, or take any drugs that were not prescribed by your health care provider for at least 24 hours after your discharge time. Follow any additional instructions given to you from your surgeon. Telephone instructions given to __Patient and asked if any additional questions and then verbalized understanding. Patient advised to call surgeon office or pre surgery nurse liaison [phone] if any additional questions.
[2025-03-08] VITALS (8 sets, daily range): BP systolic 127–146; BP diastolic 52–69; PULSE 45–58; RESP 10–20; TEMP 36.2–36.7; O2SAT 94–100
--- NOTE | ~2025-03-08 | XR_ITS ---
XR fluoroscopy no charge Indication: Left L4-5 microdiscectomy TECHNIQUE: Fluoroscopy used during Left L4-5 microdiscectomy performed by [Radha Strauss MD] on 03/08/2025. 8 seconds of fluoroscopy with one fluoroscopic images captured. FINDINGS: Correlate with procedure note. IMPRESSION: Fluoroscopy used during Left L4-5 microdiscectomy. Reviewed, dictated and finalized at location A.
--- OUTSIDE RECORDS SUMMARY | 2025-03-08 01:26 | XMS_ITS | Clinical Summary ---
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
--- OUTSIDE RECORDS SUMMARY | 2025-03-08 01:26 | XMS_ITS | Clinical Summary ---
Author Organization [facility] Address [address] [place] [address] Care Team Providers Care House Mover Name Role Phone Dg Santos Primary Care Provider [phone] Social History Tobacco Use Types Packs/Day Years [...] - 2023-2 5 season) 2024 PHQ-2 (Physician [place]) 11/02/2024 RSV Immunization or 60+ Years (1 [...] complete this topic Insurance AETNA Care Teams House Mover Relationship Specialty Start Date End Date Dg Santos DO [address] [facility] [address] [place] [phone] PCP - General FAMILY PRACTICE 08/29/24
--- OUTSIDE RECORDS SUMMARY | 2025-03-08 01:26 | XMS_ITS | Clinical Summary ---
Author Organization [facility] Address [address] [place] [address] Care Team Providers Care Job Putter Up And Ticket Preparer Name Role Phone Referral, Self Primary Care [...] on file Legal Sex Male 6:22 PM HOSPITALITY INTERN Gender Identity Not on file Sexual Orientation [...] MEDICARE GOLD AETNA MEDICARE GOLD Care Teams Job Putter Up And Ticket Preparer Relationship Specialty Start Date End Date Referral, Self PCP - General 06/27/24
--- OUTSIDE RECORDS SUMMARY | 2025-03-08 01:26 | XMS_ITS | Continuity of Care Document ---
Author Organization [facility] Address [address] [place] [address] [address] [place] [address] Phone Care Team Providers Care Upper Inspector Name Role Phone Richy, Edward Unavailable Unavailable Advance Directives Directive Yes / No Effective Date File Name No Information Encounters Encounter Description Practice Location Reason(s) For Visit Diagnoses Date Provider Providers Copied on Encounter [facility], [address], [place], [place], [address], [place] tel:[phone] [facility] No Information Dec- 9-200 3 Doisy Edward. [address] , [address], [place], [address], [place]. tel:[phone] Family History Family Member Type Diagnosis Age At Onset No Information Payers Payer name Insurance type Covered alliance party ID Authoriza tion(s) No Information Social [...]
--- OUTSIDE RECORDS SUMMARY | 2025-03-08 01:26 | XMS_ITS | Referral Summary ---
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
[2025-03-08] MEDS: LACTATED RINGERS 1,000 ML 30 ML IV CONT ×2 (06:30→11:55)
--- NOTE | 2025-03-08 09:37 | P.HP_ITS ---
H&P: HPI History of Present Illness Date/Time: 03/08/25 09:37 Chief Complaint: left leg pain Narrative: Mr. Murdock is a 64-year-old male with history of cervical myelopathy who underwent ACDF C5-7 in September who is here today for treatment of his left leg pain. I had originally been following him for this which he has had for over 20 years starting in the left lower lumbar area radiating into the buttock and lateral aspect of the left leg and foot. This is constant and worsens with sitting and at nighttime. He states that this is gradually worsened over the last few months and is becoming unbearable. He has had physical therapy, epidural steroid injections, and a number of medications without improvement. He denies any right-sided symptoms at this time. Review of Systems Review of Systems: All systems reviewed & are unremarkable except as noted in HPI and below PMFSH Past Medical History Medical History Nicotine dependence, cigarettes, uncomplicated Adverse reaction to statin medication Hyperlipidemia Hypertension Enlarged prostate Surgical History Surgical History Status post cervical arthrodesis History of cervical discectomy Status post arthroscopy of left knee Status post biopsy of skin Family History Family History Mother Hypertension Diabetes mellitus Sibling Breast cancer Father Heart failure Social History Social History Smoking packs per day: 1 Smoking cigarettes per day: 20.0 Years smoked: 45 Smoking pack-years: 45.00 Smoking status: Former smoker Tobacco type: cigarettes Smoking end date: 11/02/22 Alcohol intake: former Drinks per week: 12 Substance use: never Substance use type: does not use Do You Feel Safe in your Home?: Yes Lack of Transportation: No Lack of Food: Never True Current Housing: I Have Housing Concerned About Future Housing: No Difficulty Paying Gas/Electric Bills: No Difficulty Paying for Meds: No Currently Unemployed: No Education: High School Diploma/GED Difficulty w/ Childcare or Family Care: No Living arrangements: alone Gender identity (if verbalized by the patient): Male Spiritual care concerns: No Agree to blood products: Yes Meds Home Medications and Allergies Home Medications ?Medication ?Instructions ?Recorded ?Confirmed ?Type finasteride 5 mg tablet 5 mg PO DAILY #30 tabs 11/30/19 02/20/25 Rx tamsulosin 0.4 mg capsule (Flomax) 0.4 mg PO HS #30 caps 11/30/19 02/20/25 Rx BiPAP #1 ea 08/10/23 02/20/25 Rx famotidine 20 mg tablet (Pepcid AC) 20 mg PO DAILY 06/10/24 02/20/25 History amlodipine 10 mg tablet 10 mg PO DAILY #90 tabs 11/22/24 02/20/25 Rx rosuvastatin 10 mg tablet 10 mg PO DAILY #90 tabs 11/22/24 02/20/25 Rx Allergies Allergy/AdvReac Type Severity Reaction Status Date / Time No Known Allergies Allergy Verified 02/20/25 13:01 Exam Narrative: Positive Turner's on right side Decreased sensation to light touch in left thigh Unless otherwise stated above, the patient's physical exam is as follows: General: -Well developed and well nourished. No a cute distress. Cooperative with exam. Mental status: -Awake and oriented to person, place, an d time. Affect is normal. -Fund of knowledge appropriate -Recent and remote memory are intact -Attention span and concentration appear normal -Language function is normal -There is no evidence of aphasia in conv ersational speech. Cranial nerves: -CN II: Visual tapia full to bedside co nfrontation -CN III, IV, : Pupils equal, round, an d reactive to light; extraocular movements, no ptosis, no nystagmus -CN V: Facial sensation intact in V1 thr ough V3 distributions -CN VII: Face symmetric -CN VIII: Hearing intact to conversation al speech -CN IX, X: Palate elevates symmetrically ; normal phonation -CN XI: Symmetric full strength of king ocleidomastoid and trapezius muscles -CN XII: Tongue protrudes midline Integumentary: -No obvious skin lesions or masses Motor: -Muscle tone normal without spasticity o f flaccidity. No atrophy. No fasciculations. -No pronator drift -Right upper extremity: deltoid 5/5, bic eps 5/5, triceps 5/5, wrist extensors 5/5, wrist flexors 5/5, intrinsics 5/5 -Left upper extremity: deltoid 5/5, lavon ps 5/5, triceps 5/5, wrist extensors 5/5, wrist flexors 5/5, intrinsics 5/5 -Right lower extremity: iliopsoas 5/5, q uadriceps 5/5, hamstrings 5/5, tibialis anterior 5/5, gastroc-soleus 5/5, EHL 5/5 -Left lower extremity: iliopsoas 5/5, qu adriceps 5/5, hamstrings 5/5, tibialis anterior 5/5, gastroc-soleus 5/5, EHL 5/5 Sensory: -Intact to light touch throughout -Normal proprioception throughout Reflexes: -1-2+ DTR's throughout -No Turner's, clonus, or Babinski bilat eramirellay I reviewed his recent MRI lumbar spine which shows a left-sided caudally migr ated disc herniation L4-5 causing lateral recess stenosis Assessment and Plan Assessment and plan (1) Lumbar disc herniation with radiculopathy: Code(s): M51.16 - Intervertebral disc disorders with radiculopathy, lumbar region Status: Acute Plan Mr. Murdock is a 64-year-old male with a 20+ year history of left leg pain radiating into the lateral leg and foot which has been resistant to physical therapy, epidural steroid injections, and multiple medications. He does have some decrease in sensation to light touch in the left thigh. We reviewed his most recent MRI lumbar spine together which shows a caudally migrated left-sided disc herniation at L4-5 causing lateral recess stenosis. We discussed that the distribution of his pain classically fits better in an S1 dermatome, but I do not see any pathology at the S1 level to explain this. The only area that I can correlate any left-sided symptoms is at the L4-5 level. His symptoms have become intolerable for him, so I have offered him surgery in the form of left L4-5 microdiskectomy. We reviewed surgery in detail including risks, expected recovery, and restrictions after surgery. He is eager to proceed with this as discussed.
--- NOTE | 2025-03-08 09:37 | WPDHPUPDATE1 ---
History and Physical Update Update Date/Time: 03/08/25 09:37 History and Physical has been reviewed, including an updated exam of the patient. There are NO changes in the patient's condition. Risks, benefits, and alternatives have been discussed and questions answered. Patient agrees to proceed with procedure.
--- NOTE | 2025-03-08 09:50 | P.PNAN_ITS ---
Anes - Initial Pre Proc Eval Procedure: Operation Date: 03/08/25 10:00 Proposed Procedures p Left L4-5 Microdiscectomy - Rdaha Strauss MD Date/Time: 03/08/25 09:50 Surgeon: Radha Strauss MD Pre Op Diagnosis: lumbar disc herniation with radiculopathy Patient Data Age: 64 Gender: M Height: 1.7 m Weight: 85.7 kg Last Vital Signs Temp 97.8 F 02/20/25 13:03 Pulse 50 L 02/20/25 13:03 Resp 16 02/20/25 13:03 BP 159/67 H 02/20/25 13:03 Pulse Ox 99 02/20/25 13:03 O2 Del Method Autopap 02/20/25 13:03 Allergies Allergy/AdvReac Type Severity Reaction Status Date / Time No Known Allergies Allergy Verified 03/08/25 09:46 Home Medications ?Medication ?Instructions ?Recorded ?Confirmed ?Type finasteride 5 mg tablet 5 mg PO DAILY #30 tabs 11/30/19 03/08/25 Rx tamsulosin 0.4 mg capsule (Flomax) 0.4 mg PO HS #30 caps 11/30/19 03/08/25 Rx BiPAP #1 ea 08/10/23 02/20/25 Rx famotidine 20 mg tablet (Pepcid AC) 20 mg PO DAILY 06/10/24 03/08/25 History amlodipine 10 mg tablet 10 mg PO DAILY #90 tabs 11/22/24 03/08/25 Rx rosuvastatin 10 mg tablet 10 mg PO DAILY #90 tabs 11/22/24 03/08/25 Rx Patient hx anesthesia problems: none Family hx anesthesia problems: none Results Review: All pre-operative results and documents have been reviewed as part of the pre- operative evaluation. [facility] Past Medical History Medical History Nicotine dependence, cigarettes, uncomplicated Adverse reaction to statin medication Hyperlipidemia Hypertension Enlarged prostate Surgical History Surgical History Status post cervical arthrodesis History of cervical discectomy Status post arthroscopy of left knee Status post biopsy of skin Family History Family History Mother Hypertension Diabetes mellitus Sibling Breast cancer Father Heart failure Social History Social History Smoking packs per day: 1 Smoking cigarettes per day: 20.0 Years smoked: 45 Smoking pack-years: 45.00 Smoking status: Former smoker Tobacco type: cigarettes Smoking end date: 11/02/22 Alcohol intake: former Drinks per week: 12 Substance use: never Substance use type: does not use Do You Feel Safe in your Home?: Yes Lack of Transportation: No Lack of Food: Never True Current Housing: I Have Housing Concerned About Future Housing: No Difficulty Paying Gas/Electric Bills: No Difficulty Paying for Meds: No Currently Unemployed: No Education: High School Diploma/GED Difficulty w/ Childcare or Family Care: No Living arrangements: alone Gender identity (if verbalized by the patient): Male Spiritual care concerns: No Agree to blood products: Yes Anes - Eval Final PreProcedure Day of Procedure 03/08/25 09:50 Patient weight: normal Heart: regular rate and rhythm Lungs: clear to auscultation Airway: Mallampati scale class III Neurological: alert and oriented Last oral intake: >/= 8 hours ASA classification: III Emergent: no Anesthetic plan: proceed Anesthesia type and monitoring: general ETT and standard monitoring Results Review: All pre-operative results and documents have been reviewed as part of the pre- operative evaluation. Informed Consent: The patient's anesthetic plan and its attendant risks and benefits were discussed with the patient/family/POA. Questions were solicited and answers provided to the satisfaction of the patient/family/POA.
[2025-03-08] MEDS: ceFAZolin 2 GM/D5W 50 ML 2 GM/50 ML BAG IVPB (09:52)
[2025-03-08] MEDS: BUPIVACAINE/EPINEPHRINE 0.5% 50 ML VIAL 30 ML INFILTRATE (10:26)
--- NOTE | 2025-03-08 11:49 | PM.OP ---
Procedure Note - Brief Procedure Note - Brief Date of procedure: 03/08/25 lumbar disc herniation with radiculopathy Post-op diagnosis: Same Procedure performed: Left L4-5 microdiskectomy Use of C-arm Use of microscope Surgeon: Radha Strauss MD Anesthesia: GETA Findings: Successful microdiskectomy without complication Estimated blood loss (mL): 10 Drains: No Packing: No Pathology: None sent Complications: None Condition: Stable Disposition: PACU
--- NOTE | 2025-03-08 11:58 | P.OP_ITS ---
Procedure Note - Detailed Date of Procedure 03/08/25 Pre-op Diagnosis lumbar disc herniation with radiculopathy Post-op Diagnosis Same Procedure Performed 1. Left L4-5 microdiskectomy 2. Use of C-arm for fluoroscopy 3. Use of microscope for microsurgical dissection Surgeon Radha Strauss MD Special Education Inclusion Teacher Danish Anesthesia General Description of Procedure The patient was brought to the operating room, and general anesthesia was induced. The patient was placed prone on the Luis frame, and all pressure points were padded. Compression devices were placed on the patient's calves. The skin was cleaned with alcohol. The C-arm was brought onto the field to localize the appropriate disc space and assist with incisional planning. The previous incision was marked. The area was prepped and draped in usual sterile fashion. A time out was conducted, and pre-operative antibiotics were administered. Local anesthesia was injected into the planned incision. A midline skin incision was opened with a 10-blade scalpel, and dissection was carried down with the monopolar cautery to open the fascia on the left side of midline. Once the spinous processes were located, a subperiosteal dissection was performed to expose the lamina on the left, taking care to avoid the facet. A self-retaining retractor was placed. The C-arm was brought in to confirm the correct level. The microscope was draped and brought into the field for microsurgical dissection. The high-speed drill was used to thin the left L4 lamina to the ligamentum flavum. A currette was used to separate the ligament from the bone which was then removed with the Kerrison. The ligamentum was then elevated with a currette and removed. A kerrison was passed along the traversing nerve root and followed distally to remove bone into the foramen. The traversing nerve root was retracted medially, and the disc was opened with a nerve hook. Small pieces of degenerated disc were removed with a micropituitary. An Lashaun and nerve hook were intermittently used to free more disc material which was then removed with a micropituitary. A Woodsen was used to verify adequate decompression at the cranial and caudal aspects of the decompression as well as into the foramen. The nerve returned to its [place] cour[place] oreilles position without further evidence of compression. Hemostasis was ensured with the bipolar, Floseal, and cottonoids, and the area was copiously irrigated. No evidence of CSF leak was noted. The fascia was closed with 0-Vicryl in an interrupted fashion. The soft tissue was again copiously irrigated. The dermis was closed with 2-0 then 3-0 interrupted Vicryl. The skin was closed with 4-0 monocryl. Skin glue was applied. The patient was returned supine on the stretcher, extubated, and transferred to PACU without incident. Billing codes: 46278, 00102 Estimated Blood Loss 10 Drains No Packing No Pathology None sent Complications None Condition Stable Disposition PACU [facility] Billing Surgery - Charge Forward: Surgery Billing
[2025-03-08] MEDS: fentaNYL CITRATE INJ (*CRX) 100 MCG/2 ML VIAL 25 MCG IV PUSH ×4 (12:22→12:40)
== END 2025-03-08 13:47 | disposition home or self-care (01) ==
PROVIDERS: PCP Nurse Practitioner Family; Visit Provider Neurological Surgery
PROC: (CPT 63030; principal; 2025-03-08 10:00)
DX: M51.16 Intervertebral disc disorders with radiculopathy, lumbar region (principal)
CPT/HCPCS: 63030; 99199; J0690; J1100; J2003; J2250; J2405; J2704; J3010; J7120

== ENCOUNTER 2025-06-14 08:03 | Outpatient (CLI) | payer MEDICARE, SELFPAY ==
--- NOTE | ~2025-06-14 | XR_ITS ---
XR_[id number] 06/14/2025 08:24 Indication: Arthrodesis status Procedure: 5 views cervical spine Comparison: 01/12/2025 Findings: There are surgical changes of anterior fusion and discectomy at C5-C7. Stable alignment. Recinos rdware intact. No acute fracture, subluxation or dislocation. There is bulky osteophytes of the upper cervical spine. No prevertebral soft tissue abnormality. Odontoid process is unremarkable. Lung apic es are normal. Impression: 1: No acute abnormality of the cervical spine. Reviewed, dictated and finalized at location A. Impression: 1: No acute abnormality of the cervical spine.
--- OUTSIDE RECORDS SUMMARY | 2025-06-14 08:07 | XMS_ITS | Continuity of Care Document ---
Author Organization [facility] Address [id number] [place] [address] [address] [place] [address] Phone Care Team Providers Care Recovery Assistant Name Role Phone Richy, Edward Unavailable Unavailable Advance Directives Directive Yes / No Effective Date File Name No Information Encounters Encounter Description Practice Location Reason(s) For Visit Diagnoses Date Provider Providers Copied on Encounter [facility], [address], [place], [place], [id number], [place] tel:[phone] [facility] No Information Dec- 9-200 3 Doisy Edward. [address] , [address], [place], [address], [place]. tel:[phone] Family History Family Member Type Diagnosis Age At Onset No Information Payers Payer name Insurance type Covered green party ID Authoriza tion(s) No Information Social [...]
--- OUTSIDE RECORDS SUMMARY | 2025-06-14 08:07 | XMS_ITS | Clinical Summary ---
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 Gender Identity Not on file Sexual Orientation Not on file Plan of Treatment Health Maintenance Due Date Last Done Comments Hepatitis C Virus (HCV) Screening 1960 TdaP Immunization 1958 Cologuard 2003 Colonoscopy 2003 Colorectal Cancer Screening 2003 Immunochemical Fecal Occult Blood 2003 Pneumococcal Immunization (5 0+ years) (1 of 1 - PCV) 2008 Zoster Immunization (1 of 2) 2008 SARS-COV-2 Immunization (1 - 2023- season) 2024 Influenza Immunization (#1) 2025 Respiratory Syncytial Virus (RSV) Immunization (Adult) (1 - 1-dose 75+ series) 2033 Hepatitis B Immunization Aged Out No longer eligible based on patient's age to complete this topic Human Papillomavirus (HPV) Immunization Aged Out No longer eligible b ased on patient's age to complete this topic Meningococcal Immunization (ACWY) Aged Out No longer eligible based on patient's age to complete this topic Rotavirus Immunization Aged Out No lo nger eligible based on patient's age to complete this topic
--- OUTSIDE RECORDS SUMMARY | 2025-06-14 08:07 | XMS_ITS | Clinical Summary ---
Author Organization [facility] Address [address] [place] [address] Care Team Providers Care Quarter Doper Name Role Phone Dg Santos Primary Care Provider Social History Tobacco Use Types Packs/Day Years [...] - 2023-2 5 season) 2024 PHQ-2 (Physician [place]) 11/02/2024 RSV Immunization or 60+ Years (1 [...] complete this topic Insurance [employer] Care Teams Quarter Doper Relationship Specialty Start Date End Date Dg Santos DO [id number] [place] [address] [place] [id number] PCP - General FAMILY PRACTICE 08/29/24
--- OUTSIDE RECORDS SUMMARY | 2025-06-14 08:07 | XMS_ITS | Clinical Summary ---
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
== END 2025-06-14 08:04 | disposition home or self-care (01) ==
PROVIDERS: PCP Nurse Practitioner Family; Visit Provider Neurological Surgery
DX: Z98.1 Arthrodesis status (principal)
CPT/HCPCS: 72040

== ENCOUNTER 2025-06-24 07:40 | Outpatient (CLI) | payer MEDICARE, SELFPAY ==
--- OUTSIDE RECORDS SUMMARY | 2003-01-18 06:30 | XMS_ITS | Continuity of Care Document ---
Author Organization [facility] Address [id number] [place] [address] [address] [place] [address] Phone Care Team Providers Care Manager Group Name Role Phone Richy, Edward Unavailable Unavailable Advance Directives Directive Yes / No Effective Date File Name No Information Encounters Encounter Description Practice Location Reason(s) For Visit Diagnoses Date Provider Providers Copied on Encounter [facility], [address], [place], [place], [id number], [place] tel:[phone] [facility] No Information Dec- 9-200 3 Doisy Edward. [address] , [address], [place], [address], [place]. tel:[phone] Family History Family Member Type Diagnosis Age At Onset No Information Payers Payer name Insurance type Covered constitution party ID Authoriza tion(s) No Information Social History Type Description Quantity Date Captured Comments Sex Male Smoking Status No Information Chief Complaint And Reason For Visit No Information Reason For Referral Reason For Referral No Information History Of Present Illness Encounter Date Complaint History Of Prese nt Illness No Information Functional Status Date Functional Assessmen t No Information Instructions Date Instruction Additional Infor mation No Information Assessments Type Assessment Date No Information Patient Care Teams Name Effective Dates (start - stop) Status Members No Information
--- NOTE | ~2025-06-24 | XR_ITS ---
XR knee LT min 4V 06/24/2025 08:00 INDICATION: Left knee pain for one month PROCEDURE: 5 views of the left knee COMPARISON: No prior studies for comparison. FINDINGS: Fracture, dislocation or subluxation is not identified. No acute fracture or traumatic malalignment. There is mild joint space narrowing medial compartment, consistent with degenerative change. No significant joint effusion. The soft tissues appear within normal limits. No foreign bodies are identified. IMPRESSION: 1: NO ACUTE BONE OR JOINT ABNORMALITY IDENTIFIED. 2: Mild medial compartmental degenerative change. Reviewed, dictated and finalized at location O.
--- OUTSIDE RECORDS SUMMARY | 2025-06-24 07:44 | XMS_ITS | Clinical Summary ---
Author Organization [facility] Address [address] [place] [address] Care Team Providers Care Rental Clerk Tool And Equipment Name Role Phone Dg Santos Primary Care Provider [phone] Social History Tobacco Use Types Packs/Day Years [...] - 2023-2 5 season) 2024 PHQ-2 (Physician [place]) 11/02/2024 RSV Immunization or 60+ Years (1 [...] complete this topic Insurance A[employer] Care Teams Rental Clerk Tool And Equipment Relationship Specialty Start Date End Date Dg Santos DO [id number] [place] [address] [place] [id number] PCP - General FAMILY PRACTICE 08/29/24
--- OUTSIDE RECORDS SUMMARY | 2025-06-24 07:45 | XMS_ITS | Clinical Summary ---
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
--- OUTSIDE RECORDS SUMMARY | 2025-06-24 07:45 | XMS_ITS | Clinical Summary ---
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
== END 2025-06-24 07:41 | disposition home or self-care (01) ==
PROVIDERS: PCP Nurse Practitioner Family; Visit Provider Neurological Surgery
DX: M17.12 Unilateral primary osteoarthritis, left knee (principal)
CPT/HCPCS: 73564

== ENCOUNTER 2025-09-18 07:48 | Outpatient (CLI) | payer MEDICARE, SELFPAY ==
--- NOTE | ~2025-09-18 | MR_ITS ---
EXAMINATION: MR knee LT wo con DATE: 09/18/2025 08:26 INDICATION: Unspecified meniscal tear at the left knee TECHNIQUE: Magnetic resonance imaging (MRI) of the left knee was performed without intravenous contrast. Sequences included coronal PD-weighted FSE, coronal PD-weighted FS FSE, sagittal T2-weighted FSE, sagittal PD-weighted FS FSE and axial PD weighted fat saturated FSE. COMPARISON: None. FINDINGS: Medial compartment: Complex medial meniscal tear beginning medial side of the anterior horn posteriorly through the body and posterior horn. Partial thickness chondral ulceration with small focus of mild subarticular edema-like signal change at the medial aspect of the medial tibial plateau. Shallow chondral ulceration with scattered chondral surface irregularity along the anterior to central and lateral side of the posterior weightbearing medial femoral condyle. Superimposed small deep chondral fissure without degenerative subchondral changes at the junction of the central to posterior aspect of the weightbearing medial femoral condyle. Lateral compartment: Lateral meniscus is normal. Mild chondral fissuring without degenerative subchondral changes at the posterior aspect lateral tibial plateau and central aspect of the weightbearing lateral femoral condyle. Patellofemoral compartment: Small region of shallow chondral ulceration at the central aspect of the medial trochlea and at the inferomedial aspect of the lateral trochlea. Patellar cartilage is relatively preserved. Ligaments and tendons: Anterior and posterior cruciate ligaments are normal. The medial collateral ligament and fibular collateral ligament complex are normal. Patellar tendon is normal. Mild tendinopathy distal quadriceps tendon where there is a moderate- sized enthesophyte and small enthesopathic ossicles at its patellar insertion. The visualized medial and lateral hamstring tendons as well as the iliotibial band are normal. Fluid: Small knee joint effusion at the suprapatellar pouch. No loose osteochondral bodies identified. Mild prepatellar bursitis. Osseous/other: Normal marrow signal. No fracture or pathologic marrow replacing process. Large fusiform intramuscular lipoma within the distal vastus medialis which measures approximately 7 cm in length and 2 cm in orthogonal diameter. IMPRESSION: 1. Complex medial meniscus. 2. 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 3. Distal quadriceps tendinopathy without tear. 4. Likely reactive small left knee joint effusion. 5. Mild prepatellar bursitis. 6. 7 x 2 x 2 cm vastus medialis intramuscular lipoma. Reviewed, dictated and finalized at location A. INE BRUSHER IMPRESSION: 1. Complex medial meniscus. 2. 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 3. Distal quadriceps tendinopathy without tear. 4. Likely reactive small left knee joint effusion. 5. Mild prepatellar bursitis. 6. 7 x 2 x 2 cm vastus medialis intramuscular lipoma.
== END 2025-09-18 07:49 | disposition home or self-care (01) ==
LOC: MICIMG 07:49
PROVIDERS: PCP Nurse Practitioner Family; Visit Provider Orthopaedic Surgery
DX: S83.232A Complex tear of medial meniscus, current injury, left knee, initial encounter (principal); X58.XXXA Exposure to other specified factors, initial encounter; M17.12 Unilateral primary osteoarthritis, left knee; M94.262 Chondromalacia, left knee; M77.8 Other enthesopathies, not elsewhere classified; M25.462 Effusion, left knee; M70.42 Prepatellar bursitis, left knee; D17.79 Benign lipomatous neoplasm of other sites
CPT/HCPCS: 73721

== ENCOUNTER 2025-09-20 14:43 | Outpatient (CLI) | payer MEDICARE, SELFPAY ==
--- NOTE | 2025-09-20 14:54 | ECG_ITS ---
Test Date: 2025-09-20 15:02:47 Measurements Intervals [place] Rate: 44 P: 32 [place]: 174 QRS: 35 QRSD: 116 T: 20 QT: 444 QTc: 381 Interpretive Statements SINUS BRADYCARDIA MODERATE INTRAVENTRICULAR CONDUCTION DELAY [110+ ms QRS DURATION] ABNORMAL ECG Compared to ECG 09/08/2024 08:31:37 Myocardial infarct finding no longer present Electronically Signed On 09-20-2025 17:20:16 [employer]ODUCTION ENGINEER by Dale Suazo M.D.
== END 2025-09-20 14:44 | disposition home or self-care (01) ==
LOC: ANHCARD 14:44
PROVIDERS: PCP Nurse Practitioner Family; Visit Provider Physician Assistant Surgical
DX: Z01.818 Encounter for other preprocedural examination (principal); I10 Essential (primary) hypertension; R94.31 Abnormal electrocardiogram [ECG] [EKG]
CPT/HCPCS: 93005